=== PATIENT | female | born 1950 | race Caucasian/White ===

== ENCOUNTER 2021-05-01 09:34 | Inpatient (IN) | payer MEDICARE ==
[2021-05-01] MEDS ORDERED: KETOROLAC 15 MG/ML 1 ML VIAL IVP STA (12:11)
--- NOTE | 2021-05-01 12:14 | ED ---
Abdominal Pain HPI - General Chief Complaint: Abdominal Pain Stated Complaint: abd pain Time Seen by Provider: 05/01/21 12:01 Source: patient Mode of arrival: ambulatory Limitations: no limitations - History of Present Illness Initial Comments: This is a 71-year-old female who presents to the emergency department for 3 weeks of right lower quadrant pain. She saw her PCP 3 weeks ago and was given an antibiotic for a UTI. States that her PCP only saw trace blood in her urine. She cannot recall what the antibiotic was, but states that she took it for 7 days. The antibiotic did not offer any improvement to her symptoms. The pain radiates into her groin and right lower back. She has been unable to control the pain despite the use of Cymbalta, [place], and Mobic. Denies any nausea, vomiting, fevers, chills, dysuria, or hematuria. Denies any history of kidney stones. MD Complaint: abdominal pain, flank pain Onset/Timin -: week(s) Location: RLQ, R flank Radiation: other (right groin) Severity: severe Severity scale (1-10): 10 Quality: cramping, stabbing, sharp Consistency: constant Improves With: nothing Treatments Prior to Arrival: NSAIDs, prescription analgesics - Related Data Home Medications Medication Instructions Recorded Confirmed Cholecalciferol [Vitamin D3 (25 100 mcg PO DAILY 05/01/21 05/01/21 Mcg = 1000 Iu)] DULoxetine HCL [Cymbalta] 120 mg PO DAILY 05/01/21 05/01/21 HYDROcodone/APAP 7.5-325MG [[place] 1 tab PO QID 05/01/21 05/01/21 7.5-325] Meloxicam [Mobic] 7.5 - 15 mg PO DAILY PRN 05/01/21 05/01/21 busPIRone HCL 15 mg PO BID PRN 05/01/21 05/01/21 Allergies Allergy/AdvReac Type Severity Reaction Status Date / Time No Known Allergies Allergy Verified 05/01/21 16:13 Review of Systems ROS Statement: Those systems with pertinent positive or pertinent negative responses have been documented in the HPI. ROS Other: All systems not noted in ROS Statement are negative. Past Medical History Past Medical History: No Reported History History of Any Multi-Drug Resistant Organisms: None Reported Past Surgical History: Back Surgery, Hysterectomy, Orthopedic Surgery (right hip surgery) Past Psychological History: No Psychological Hx Reported Smoking Status: Current every day smoker Past Alcohol Use History: None Reported Past Drug Use History: None Reported General Exam Limitations: no limitations General appearance: alert, in distress Head exam: Present: atraumatic, normocephalic, normal inspection Respiratory exam: Present: normal lung sounds bilaterally. Absent: respiratory distress, wheezes, rales, rhonchi, stridor Cardiovascular Exam: Present: regular rate, normal rhythm, normal heart sounds. Absent: systolic murmur, diastolic murmur, rubs, gallop, clicks GI/Abdominal exam: Present: soft, tenderness (right lower quadrant), guarding (RLQ), normal bowel sounds. Absent: distended, organomegaly, mass, pulsatile mass Back exam: Present: other (Tenderness to palpation of L5-S1). Absent: CVA tenderness (R), CVA tenderness (L) Neurological exam: Present: alert, oriented X3, CN II-XII intact Psychiatric exam: Present: normal affect, normal mood Skin exam: Present: warm, dry, intact, normal color. Absent: rash Course Vital Signs 05/01/21 05/01/21 05/01/21 09:41 14:31 16:06 Temperature 97.3 F L Pulse Rate 101 H 78 78 Respiratory 18 18 16 Rate Blood Pressure 159/107 185/103 182/96 O2 Sat by Pulse 98 97 97 Oximetry - Reevaluation(s) Time: 13:10 (Patient alerted of CT scan results and the need for further testing. ) Time: 14:20 (Pt in a lot of pain, Toradol not helpful. Order for morphine placed.) Time: 17:07 (States that the morphine worked well but is starting to wear off. Will provide another dosage. ) Medical Decision Making - Medical Decision Making Given the persistent right lower quadrant pain with radiation into the right flank and groin, a CT scan was ordered to evaluate for possible kidney stone. CT scan revealed incidental findings of iliac and abdominal aortic aneurysms. call center receptionist vascular surgeon, Dr. Mtz was contacted per the recommendation of radiology, who requested a CTA. 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 Given the persistent pain over 3 weeks, it is possible that this is musculoskeletal pain given her history of back and hip surgery. Both surgeries took place 16-20 years ago. Given the the patient's uncontrolled pain, the decision was made to admit her after discussion with my attending Dr. Mack. Will admit her for observation due to uncontrollable pain. She will follow up with Dr. Mtz as an outpatient. - Lab Data Result diagrams: 05/01/21 12:54 05/01/21 12:54 Lab Results 05/01/21 05/01/21 05/01/21 Range/Units 12:26 12:54 12:54 WBC 10.6 (3.8-10.6) k/uL RBC 5.47 H (3.80-5.40) m/uL Hgb 15.9 (11.4-16.0) gm/dL Hct 49.6 H (34.0-46.0) % MCV 90.7 (80.0-100.0) fL MCH 29.1 (25.0-35.0) pg MCHC 32.0 (31.0-37.0) g/dL RDW 13.3 (11.5-15.5) % Plt Count 227 (150-450) k/uL MPV 8.6 Neutrophils % 63 % Lymphocytes % 25 % Monocytes % 6 % Eosinophils % 3 % Basophils % 1 % Neutrophils # 6.6 (1.3-7.7) k/uL Lymphocytes # 2.7 (1.0-4.8) k/uL Monocytes # 0.6 (0-1.0) k/uL Eosinophils # 0.3 (0-0.7) k/uL Basophils # 0.1 (0-0.2) k/uL Sodium 138 (137-145) mmol/L Potassium 4.3 (3.5-5.1) mmol/L Chloride 107 (98-107) mmol/L Carbon Dioxide 24 (22-30) mmol/L Anion Gap 7 mmol/L BUN 24 H (7-17) mg/dL Creatinine 0.62 (0.52-1.04) mg/dL Est GFR (CKD-EPI)AfAm >90 (>60 ml/min/1.73 sqM) Est GFR (CKD-EPI)NonAf >90 (>60 ml/min/1.73 sqM) Glucose 89 (74-99) mg/dL Calcium 9.9 (8.4-10.2) mg/dL Total Bilirubin 0.8 (0.2-1.3) mg/dL AST 27 (14-36) U/L ALT 15 (4-34) U/L Alkaline Phosphatase 76 (38-126) U/L Total Protein 7.5 (6.3-8.2) g/dL Albumin 4.4 (3.5-5.0) g/dL Amylase 56 (30-110) U/L Lipase 67 (23-300) U/L Urine Color Yellow Urine Appearance Clear (Clear) Urine pH 6.0 (5.0-8.0) Ur Specific [place] 1.012 (1.001-1.035) Urine Protein Negative (Negative) Urine Glucose (UA) Negative (Negative) Urine Ketones Negative (Negative) Urine Blood Negative (Negative) Urine Nitrite Negative (Negative) Urine Bilirubin Negative (Negative) Urine Urobilinogen <2.0 (<2.0) mg/dL Ur Leukocyte Esterase Trace H (Negative) Urine RBC 3 (0-5) /hpf Urine WBC 11 H (0-5) /hpf Hyaline Casts 5 H (0-2) /lpf Urine Mucus Rare H (None) /hpf - Radiology Data Radiology results: report reviewed, image reviewed Disposition Clinical Impression: Iliac artery aneurysm, right, AAA (abdominal aortic aneurysm) Disposition: ADMITTED IP TO THIS [facility] Condition: Undetermined Referrals: Carrie Blandon DO [Primary Care Provider] - 1-2 days
--- NOTE | 2021-05-01 13:00 | CT ---
EXAMINATION TYPE: CT abdomen pelvis wo con DATE OF EXAM: 05/01/2021 COMPARISON: None available HISTORY: 71-year-old female, right-sided abdominal pain for [address] DLP: 318.3 mGycm Automated exposure control for dose reduction was used. TECHNIQUE: Helical acquisition of images was performed from the lung bases through the pelvis. No or al or IV contrast administration FINDINGS: Scattered bilateral tiny nonobstructing renal calculi measuring up to 3 mm in the left mid renal pole . Obstructing stone measuring 3 mm seen in the pelvic portion of the left ureter, causing moderate le ft-sided hydroureter and hydronephrosis, without significant perirenal or periureteric fat stranding, suggestive of a chronic obstructing stone. No right-sided hydroureter or hydronephrosis. No definite renal lesion by this nonenhanced CT scan. Extensive arterial atherosclerotic calcifications and atheromatous plaques. Infrarenal abdominal aort ic aneurysm measuring up to 4.7 cm. There is also a large aneurysm involving the bifurcation of the r ight common iliac artery extending into the right internal iliac artery measuring up to 4.2 cm. Ectat ic common iliac arteries measuring up to 2 cm on the right side and 1.5 cm and the left side. No definite hepatic focal lesion by this nonenhanced CT scan. No radiodense gallbladder calculi. Unre markable unenhanced CT appearance of the spleen, pancreas and adrenals. The urinary bladder is almost complete collapsed. Previous hysterectomy. No gross adnexal mass. Unremarkable nondistended stomach, duodenum and small bowel. Scattered uncomplicated diverticulosis. Moderate to marked fecal loading of the colon. No suspicious lymphadenopathy or sizable ascites. Old healed fractures of the left superior and left inferior pubic rami. Unremarkable lung bases. L4-5 disc prosthesis with previous left L4 and L5 transpedicular fixa tion. No aggressive bone lesion. IMPRESSION: 3 mm obstructing stone within the pelvic portion of the left ureter causing moderate left-sided hydro ureter and hydronephrosis, likely chronic as described above, please correlate clinically and with ur inalysis results. Further renal scintigraphy can be considered if clinically acquired. Bilateral nonobstructing renal calculi. No right-sided hydroureter or hydronephrosis. Abdominal aortic and right common iliac aneurysms as described above, for vascular surgery consultati on. Other incidental findings as described above. Findings were discussed with the referring PA immediately after the CT scan was performed.
[2021-05-01 13:10] LABS: Appearance,Urine Clear (Clear); Bilirubin,Urine Negative (Negative); Blood,Urine Negative (Negative); Color,Urine Yellow; Glucose,Urine (UA) Negative (Negative); Hyaline Casts,Urine 5 /lpf (0-2); Ketones,Urine Negative (Negative); Leukocyte Esterase,Urine Trace (Negative); Mucus,Urine Rare /hpf; Nitrite,Urine Negative (Negative); Protein,Urine Negative (Negative); RBC,Urine 3 /hpf (0-5); Specific Gravity,Urine 1.012 (1.001-1.035); Urobilinogen,Urine <2.0 mg/dL (<2.0); WBC,Urine 11 /hpf (0-5)
[2021-05-01 13:28] LABS: Basophils # (A) 0.1 k/uL (0-0.2); Basophils % (A) 1 %; Eosinophils # (A) 0.3 k/uL (0-0.7); Eosinophils % (A) 3 %; HCT 49.6 % (34.0-46.0); HGB 15.9 gm/dL (11.4-16.0); Lymphocytes # (A) 2.7 k/uL (1.0-4.8); Lymphocytes % (A) 25 %; MCH 29.1 pg (25.0-35.0); MCV 90.7 fL (80.0-100.0); Mean Platelet Volume 8.6; Monocytes # (A) 0.6 k/uL (0-1.0); Monocytes % (A) 6 %; Neutrophils # (A) 6.6 k/uL (1.3-7.7); Neutrophils % (A) 63 %; Platelet Count 227 k/uL (150-450); RBC 5.47 m/uL (3.80-5.40); RDW 13.3 % (11.5-15.5); WBC 10.6 k/uL (3.8-10.6)
[2021-05-01 13:39] LABS: ALT 15 U/L (4-34); AST 27 U/L (14-36); African American GFR (CKD) >90 (>60 ml/min/1.73 sqM); Albumin 4.4 g/dL (3.5-5.0); Alkaline Phosphatase 76 U/L (38-126); Amylase 56 U/L (30-110); Anion Gap 7 mmol/L; Blood Urea Nitrogen 24 mg/dL (7-17); Calcium 9.9 mg/dL (8.4-10.2); Carbon Dioxide 24 mmol/L (22-30); Chloride 107 mmol/L (98-107); Glucose 89 mg/dL (74-99); Lipase 67 U/L (23-300); Non-African American GFR(CKD) >90 (>60 ml/min/1.73 sqM); Sodium 138 mmol/L (137-145); Total Bilirubin 0.8 mg/dL (0.2-1.3); Total Protein 7.5 g/dL (6.3-8.2)
[2021-05-01 13:59] LABS: Potassium 4.3 mmol/L (3.5-5.1)
[2021-05-01] MEDS ORDERED: MORPHINE SULFATE 2 MG/ML SYRINGE IM STA (14:07)
[2021-05-01] MEDS ORDERED: MORPHINE SULFATE 2 MG/ML SYRINGE IVP STA ×2 (14:30→17:05)
--- NOTE | 2021-05-01 16:04 | CT ---
EXAMINATION TYPE: CT angio thor/abd pel aorta DATE OF EXAM: 05/01/2021 INDICATION: Abdominal pain and aortic aneurysm. CT DLP: 869.5 mGy.cm Automated Exposure Control for Dose Reduction was Utilized. TECHNIQUE AND CONTRAST: Multiplanar CTA of the thoracic and abdominal aorta with IV Contrast, patient injected with 100ml mL of Isovue 370. 3-D and MIP reconstructed images were performed and reviewed. COMPARISON: Nonenhanced CT scan performed earlier same day. FINDINGS: Extensive atherosclerotic calcifications and plaques are seen involving the thoracic and abdominal ao rta with multiple variable sized calcified and noncalcified atheromatous plaques, some of them are ul cerating and mainly seen along the descending thoracic aorta and upper abdominal aorta. The ascending aorta measures up to 3.9 cm. Tortuous abdominal aorta with diffusely increased diameter and evident abdominal aortic aneurysm bobby uring up to 4.6 cm. The aneurysm extends for about 7.4 cm. The patent lumen within the maximum diamet er of the aneurysm measures 3.2 x 2.7 cm. No evidence of thoracic or abdominal aortic dissection. No uriel extension of the aneurysm into the common iliac arteries. No periaortic hematoma or collection with no evidence of contrast extravasation however there is hyperdense atheromatous plaque surroundin g the patent lumen of the abdominal aortic aneurysm which may suggest intramural hematoma. Dense calcification at the origins of the left common carotid and left subclavian arteries yet patent distally. Reduced caliber and atherosclerotic celiac trunk yet patent distally. Patent well-opacifie d superior mesenteric artery. The inferior mesenteric artery is opacified down to the pelvis. Patent renal arteries. Reduced enhancement of the right common iliac artery demonstrating ectasia and measur ing 18 mm. Ectatic left common iliac artery measuring up 17 mm. Large aneurysm is seen at the bifurcation of the right common iliac artery measuring 3.7 x 4 x 4.6 cm without significant enhancement, likely represe nting a thrombosed aneurysm. There is no significant enhancement of the right internal and right exte rnal iliac arteries with extensive calcifications. Patent atherosclerotic left external and left inte rnal iliac arteries. Mild centrilobular emphysematous changes are seen in the upper lung lobes. Grossly unremarkable remai nder of the lungs. Patent central airways. No pleural or pericardial effusion. Cardiomegaly, please c orrelate with echocardiographic results. No pathologically enlarged lymph nodes in the chest. No definite hepatic focal lesion seen by this CT angiographic study. Left-sided hydroureter and hydro nephrosis secondary to a 3 mm obstructing stone at the pelvic portion of the left ureter, described i n the previous CT report. Tiny bilateral obstructing renal calculi. Unremarkable CT appearance of the gallbladder, spleen, pancreas and adrenals. Unremarkable urinary bladder. Previous hysterectomy. No gross adnexal mass. No suspicious abdominal or pelvic lymphadenopathy. No sizable ascites. No aggress janay bone lesion. IMPRESSION: Extensive atherosclerotic changes of the thoracic and abdominal aorta with multiple atheromatous plaq ues and atheromatous ulcers as described above. No definite aortic dissection. Large abdominal aortic aneurysm with suspected intramural hematoma as described above. No periaortic hematoma or collection with no extravasation of injected IV contrast. Reduced enhancement of the right common iliac artery with large aneurysm at its bifurcation, likely t hrombosed due to the lack of enhancement. No significant enhancement of the right external and right internal iliac arteries. Other multiple incidental findings as described above. Recommend vascular ellis rgery consultation.
[2021-05-01] MEDS ORDERED: MORPHINE SULFATE 2 MG/ML SYRINGE IVP ONE (17:04)
[2021-05-01] MEDS ORDERED: ONDANSETRON 4 MG/2 ML VIAL IVP PRN (17:36)
[2021-05-01] MEDS ORDERED: NALOXONE 0.4 MG/ML 1 ML VIAL IV PRN (17:36)
[2021-05-01] MEDS ORDERED: hydrALAZINE HCL 20 MG/ML 1 ML VIAL IVP STA (17:53)
[2021-05-01] MEDS: HYDROmorphone 0.5 MG/0.5 ML SYRINGE IVP PRN (22:57)
[2021-05-02] MEDS: HYDROmorphone 0.5 MG/0.5 ML SYRINGE IVP PRN ×4 (03:15→14:31)
[2021-05-02] MEDS: NICOTINE 21MG/24HR PATCH TRANSDERM SCH (09:01)
[2021-05-02] MEDS: DULoxetine HCL 60 MG CAPSULE.DR PO SCH (09:06)
[2021-05-02] MEDS: CHOLECALCIFEROL 25 MCG (1000 IU) TABLET PO SCH (09:06)
[2021-05-02] MEDS: HYDROcodone/APAP 7.5-325MG 1 EACH TAB PO SCH ×3 (09:07→19:44)
[2021-05-02] MEDS: HYDROmorphone 1 MG/ML 1 ML SYRINGE IVP PRN (19:44)
[2021-05-03] MEDS: HYDROcodone/APAP 7.5-325MG 1 EACH TAB PO SCH ×5 (03:02→21:40)
[2021-05-03] MEDS: HYDROmorphone 1 MG/ML 1 ML SYRINGE IVP PRN ×5 (04:17→19:27)
[2021-05-03 06:44] LABS: African American GFR (CKD) 77 (>60 ml/min/1.73 sqM); Anion Gap 2 mmol/L; Blood Urea Nitrogen 42 mg/dL (7-17); Calcium 9.4 mg/dL (8.4-10.2); Carbon Dioxide 31 mmol/L (22-30); Chloride 106 mmol/L (98-107); Glucose 99 mg/dL (74-99); Non-African American GFR(CKD) 67 (>60 ml/min/1.73 sqM); Potassium 4.4 mmol/L (3.5-5.1); Sodium 139 mmol/L (137-145)
[2021-05-03] MEDS: CHOLECALCIFEROL 25 MCG (1000 IU) TABLET PO SCH (08:30)
[2021-05-03] MEDS: DULoxetine HCL 60 MG CAPSULE.DR PO SCH (08:31)
[2021-05-03] MEDS: NICOTINE 21MG/24HR PATCH TRANSDERM SCH (08:32)
--- NOTE | 2021-05-03 08:53 | P.HPIM ---
History of Present Illness H&P Date: 05/02/21 Chief Complaint: abdominal pain Patient is a 71-year-old female with a known history of back surgery and prior history of smoking and anxiety presents to ER with complaints of right lower quadrant abdominal pain. Patient states that she has been having symptoms for the past 3 weeks and was seen by her physician. Her urinalysis as an outpatient showed blood in the urine and was treated for urinary tract infection with antibiotics which she took for 7 days.. Patient did not improve symptomatically and due to worsening pain patient presents to ER. Patient states her pain is mainly in the right lower quadrant and groin region and going down to the right upper thigh region and towards the back. Denies any shortness of breath. Denies any pain in the legs with walking. No fever no chills. No cough or sputum production. Denies any dysuria or hematuria. No lightheadedness or dizziness. No prior history of abdominal surgery. CT of abdominal pelvis showed 3 mm obstructing stone within the pelvic portion of the left ureter causing moderate left-sided hydronephrosis and hydronephrosis likely chronic. Bilateral nonobstructing renal calculi. No right-sided hydroureter or hydronephrosis. Abdominal aortic and right common iliac aneurysms. Vascular surgery was consulted from the ER and CT of the thoracic aorta was done showed extensive atherosclerotic changes. Large abdominal aortic aneurysm is suspected intramural hematoma. No periaortic hematoma or collection with no extravasation of injected IV contrast. Reduced enhancement of the right common iliac artery with a large aneurysm at its bifurcation likely thrombosed and due to lack of enhancement. Laboratory showed WBC 10.6 hemoglobin 15.9 and platelets 227 BUN 24 and creatinine 0.62 Urinalysis showed trace leukoesterase clear with nitrite negative and WBC is 11. Review of Systems Constitutional: Patient denies any fever or chills . No generalized weakness or weight loss. Abdomen: Patient denied nausea vomiting and diarrhea. RLQ abdominal pain. Cardiovascular: Patient denies any chest pain or short of breath no palpitations. Respiratory: patient denied any cough or sputum production. No shortness of breath Neurologic: Patient denied any numbness or tingling headache. Musculoskeletal: Patient denies any complaints of joint swelling or deformity. Skin: Negative Psychiatric: Negative Endocrine: No heat or cold intolerance. No recent weight gain. Genitourinary: No dysuria or hematuria. All other 14 point ROS negative except the above Past Medical History Past Medical History: No Reported History History of Any Multi-Drug Resistant Organisms: None Reported Past Surgical History: Back Surgery, Hysterectomy, Orthopedic Surgery (right hip surgery) Past Psychological History: No Psychological Hx Reported Smoking Status: Current every day smoker Past Alcohol Use History: None Reported Past Drug Use History: None Reported - Past Family History Father Family Medical History: No Reported History Additional Family Medical History / Comment(s): Father was a smoker but healthy Mother Family Medical History: COPD Additional Family Medical History / Comment(s): Mother was a smoker. Medications and Allergies Home Medications Medication Instructions Recorded Confirmed Type Cholecalciferol [Vitamin D3 (25 100 mcg PO DAILY 05/01/21 05/01/21 History Mcg = 1000 Iu)] DULoxetine HCL [Cymbalta] 120 mg PO DAILY 05/01/21 05/01/21 History HYDROcodone/APAP 7.5-325MG [[place] 1 tab PO QID 05/01/21 05/01/21 History 7.5-325] Meloxicam [Mobic] 7.5 - 15 mg PO DAILY PRN 05/01/21 05/01/21 History busPIRone HCL 15 mg PO BID PRN 05/01/21 05/01/21 History Allergies Allergy/AdvReac Type Severity Reaction Status Date / Time No Known Allergies Allergy Verified 05/01/21 16:13 Physical Exam Vitals: Vital Signs Temp Pulse Resp BP Pulse Ox 05/02/21 06:40 97.8 F 80 18 126/74 95 05/02/21 05:20 77 18 137/86 92 L 05/02/21 03:10 86 18 142/101 97 05/01/21 22:30 97.6 F 64 16 177/92 95 05/01/21 18:33 76 18 150/93 05/01/21 17:54 67 18 199/106 97 05/01/21 17:24 71 16 211/106 97 05/01/21 16:06 78 16 182/96 97 05/01/21 14:31 78 18 185/103 97 Intake and Output 05/01/21 05/02/21 05/02/21 22:59 06:59 14:59 Other: # Voids 1 PHYSICAL EXAMINATION: Patient is lying in the bed comfortably, no acute distress, awake alert and oriented.. HEENT: Normocephalic. Neck is supple. Pupils reactive. Nostrils clear. Oral cavity is moist. Neck reveals no JVD, carotid bruits, or thyromegaly. CHEST EXAMINATION: Trachea is central. Symmetrical expansion. Lung love clear to auscultation and percussion. CARDIAC: Normal S1, S2 with no gallops. No murmurs ABDOMEN: Soft. Bowel sounds normal. No organomegaly. No abdominal bruits. Extremities: reveal no edema. No clubbing or cyanosis Neurologically awake, alert, oriented x3 with well-coordinated movements. No focal deficits noted Skin: No rash or skin lesions. Psychiatric: Cooperative. Nonsuicidal Musculoskeletal: No joint swelling or deformity. Normal range of motion. Results CBC & Chem 7: 05/01/21 12:54 05/03/21 05:49 Labs: Abnormal Lab Results - Last 24 Hours (Table) 05/01/21 05/01/21 05/01/21 Range/Units 12:26 12:54 12:54 RBC 5.47 H (3.80-5.40) m/uL Hct 49.6 H (34.0-46.0) % BUN 24 H (7-17) mg/dL Plasma Lactic Acid Chris (0.7-2.0) mmol/L Ur Leukocyte Esterase Trace H (Negative) Urine WBC 11 H (0-5) /hpf Hyaline Casts 5 H (0-2) /lpf Urine Mucus Rare H (None) /hpf 05/01/21 Range/Units 16:43 RBC (3.80-5.40) m/uL Hct (34.0-46.0) % BUN (7-17) mg/dL Plasma Lactic Acid Chris 0.6 L (0.7-2.0) mmol/L Ur Leukocyte Esterase (Negative) Urine WBC (0-5) /hpf Hyaline Casts (0-2) /lpf Urine Mucus (None) /hpf Microbiology - Last 24 Hours (Table) 05/01/21 12:26 Urine Culture - Preliminary Urine,Clean Catch Thrombosis Risk Factor Assmnt - DVT/VTE Prophylaxis DVT/VTE Prophylaxis: Pharmacologic Prophylaxis ordered Assessment and Plan Assessment: Right lower quadrant abdominal pain and groin pain. Large abdominal aortic aneurysm 4.6 cm and extending up to 7.4 cm with suspected intramural hematoma. Large right common iliac artery aneurysm. Left-sided obstructing 3 mm renal calculi with hydronephrosis. Elevated blood pressure on admission likely due to pain. Patient treatment with acute urinary tract infection History of back surgery Anxiety Osteoarthritis DVT prophylaxis Plan: Patient will be continued on pain management and was given Given morphine in the ER. Blood pressure is controlled now. Urinalysis negative for infection. Follow-up urine culture report. Due to large aneurysm of the right common iliac and abdominal aorta, vascular surgery will be consulted. Urology was consulted due to left ureteral stone and hydronephrosis. Continue to follow closely. Time with Patient: Greater than 30
[2021-05-03 09:39] LABS: Basophils # (A) 0.17 X 10*3/uL (0.00-0.10); Basophils % (A) 1.3 %; Eosinophils % (A) 6.2 %; HGB 13.7 g/dL (12.0-15.0); Immature Grans, Automated 0.5 %; Lymphocytes # (A) 2.89 X 10*3/uL (0.90-5.00); Lymphocytes % (A) 22.4 %; MCH 27.9 pg (27.0-32.0); MCHC 31.1 g/dL (32.0-37.0); MCV 89.6 fL (80.0-97.0); Mean Platelet Volume 11.3 fL (9.5-12.2); Monocytes # (A) 1.17 X 10*3/uL (0.20-1.00); Monocytes % (A) 9.1 %; NRBC Per 100 WBC 0 /100 WBCS (0.0-0.0); Neutrophils # (A) 7.79 X 10*3/uL (1.80-7.70); Neutrophils % (A) 60.5 %; Platelet Count 219 X 10*3/uL (140-440); RBC 4.91 X 10*6/uL (4.10-5.20); RDW 14.1 % (11.5-14.5); WBC 12.88 X 10*3/uL (4.50-10.00)
[2021-05-03] MEDS ORDERED: SENNOSIDES 8.6 MG TAB PO PRN (10:59)
[2021-05-03] MEDS: DOCUSATE 100 MG CAP PO SCH ×2 (11:44→19:27)
--- NOTE | 2021-05-03 13:55 | P.PN ---
Subjective Progress Note Date: 05/03/21 Patient seen and examined. Still has some mild abdominal discomfort otherwise feeling okay. Previous discussions with Dr. Carter earlier this week regarding findings of the abdominal and iliac artery aneurysms. Per her understanding, the plan is to workup for possible repair as an outpatient Objective - Vital Signs Vital signs: Vital Signs Temp 97.8 F 05/03/21 07:14 Pulse 80 05/03/21 10:46 Resp 16 05/03/21 10:46 BP 143/85 05/03/21 07:14 Pulse Ox 98 05/03/21 07:14 Intake & Output 05/02/21 05/03/21 05/03/21 18:59 06:59 18:59 Intake Total 480 Balance 480 Weight 49.442 kg Intake: Oral 480 Other: Voiding Method Toilet # Voids 1 2 0 - Exam Gen. is a pleasant cooperative T female in no acute distress. HEENT is normocephalic, atraumatic, extraocular motion intact. Heart appears regular at this time. Lungs are clear bilaterally. Abdomen is soft, mild lower quadrant tenderness to palpation. No obvious pulsatile masses noted. Palpable radial and femoral pulses bilaterally. Minimal mood and affect. Cranial nerves II th rough XII grossly intact - Labs CBC & Chem 7: 05/03/21 05:49 05/03/21 05:49 Labs: Abnormal Lab Results - Last 24 Hours (Table) 05/03/21 05/03/21 Range/Units 05:49 05:49 WBC 12.88 H (4.50-10.00) X 10*3/uL MCHC 31.1 L (32.0-37.0) g/dL Immature Gran # 0.06 H (0.00-0.04) X 10*3/uL Neutrophils # 7.79 H (1.80-7.70) X 10*3/uL Monocytes # 1.17 H (0.20-1.00) X 10*3/uL Eosinophils # 0.80 H (0.04-0.35) X 10*3/uL Basophils # 0.17 H (0.00-0.10) X 10*3/uL Carbon Dioxide 31 H (22-30) mmol/L BUN 42 H (7-17) mg/dL Microbiology - Last 24 Hours (Table) 05/01/21 12:26 Urine Culture - Final Urine,Clean Catch Assessment and Plan Assessment: Infrarenal abdominal aortic aneurysm, right iliac aneurysm Plan: Workup and evaluation for repair per Dr. Carter. At this time no further inpatient plans. Hopeful to have patient follow up with him in the office tomorrow 05/04/2021 upon discharge as previously planned. Patient has appointment made
--- NOTE | 2021-05-03 15:14 | P.GSCN ---
History of Present Illness Consult date: 05/01/21 Reason for Consult: abdominal aortic and iliac artery aneurysm. History of present illness: patient is a 71-year-old female who presented to the emergency room complaining of lower abdominal discomfort which had been ongoing for 3-4 week timeframe. Denied any previous similar symptoms. Her pain has plateaued over the past 2 weeks, not increasing or decreasing. There is no associated nausea nor vomiting. She is eating stooling and voiding normally. She denies chills or fevers. While in the emergency room she did undergo CT scan of her abdominal and pelvic cavities. This demonstratesa 4.6 cm infrarenal abdominal aortic aneurysm as well as a 4.6 cm right internal iliac artery aneurysm. The internal iliac artery aneurysm has very little contrast contained within. This may be due to thrombosis of the aneurysm or timing of the contrast. She denies any previous knowledge of this aneurysmal disease. Past Medical History Past Medical History: Hyperlipidemia Additional Past Medical History / Comment(s): Chronic low back pain, UTIs, pelvic fracture-healed, L kidney stone. History of Any Multi-Drug Resistant Organisms: None Reported Past Surgical History: Back Surgery, Hysterectomy, Tonsillectomy Additional Past Surgical History / Comment(s): D&Cs, L4-L5 back surgery/poonam, colonoscopies, hemorrhoidectomy Smoking Status: Current every day smoker - Past Family History Father Family Medical History: No Reported History Additional Family Medical History / Comment(s): Father was a smoker but healthy Mother Family Medical History: COPD Additional Family Medical History / Comment(s): Mother was a smoker. Medications and Allergies Home Medications Medication Instructions Recorded Confirmed Type Cholecalciferol [Vitamin D3 (25 100 mcg PO DAILY 05/01/21 05/01/21 History Mcg = 1000 Iu)] DULoxetine HCL [Cymbalta] 120 mg PO DAILY 05/01/21 05/01/21 History HYDROcodone/APAP 7.5-325MG [[place] 1 tab PO QID 05/01/21 05/01/21 History 7.5-325] Meloxicam [Mobic] 7.5 - 15 mg PO DAILY PRN 05/01/21 05/01/21 History busPIRone HCL 15 mg PO BID PRN 05/01/21 05/01/21 History Tamsulosin [Flomax] 0.4 mg PO DAILY #30 cap 05/03/21 Rx Allergies Allergy/AdvReac Type Severity Reaction Status Date / Time No Known Allergies Allergy Verified 05/01/21 16:13 Surgical - Exam Osteopathic Statement: *. No significant issues noted on an osteopathic structural exam other than those noted in the History and Physical/Consult. Vital Signs Temp Pulse Resp BP Pulse Ox 97.3 F L 101 H 18 159/107 98 05/01/21 09:41 05/01/21 09:41 05/01/21 09:41 05/01/21 09:41 05/01/21 09:41 - General well developed, well nourished, no distress - Neck no masses, no bruits, trachea midline thyroid nodule: absent, lymphadenopathy: absent, carotid bruit: absent - Abdomen Abdomen: soft, non tender (the aortic aneurysm is not under to palpation.femoral pulses are intact bilaterally. Right popliteal pulses noted. The left popliteal as well as DP and PT pulses are absent bilaterally.) nerves II through XII are grossly intact. Results - Labs 05/03/21 05:49 05/03/21 05:49 Abnormal Lab Results - Last 24 Hours (Table) 05/03/21 05/03/21 Range/Units 05:49 05:49 WBC 12.88 H (4.50-10.00) X 10*3/uL MCHC 31.1 L (32.0-37.0) g/dL Immature Gran # 0.06 H (0.00-0.04) X 10*3/uL Neutrophils # 7.79 H (1.80-7.70) X 10*3/uL Monocytes # 1.17 H (0.20-1.00) X 10*3/uL Eosinophils # 0.80 H (0.04-0.35) X 10*3/uL Basophils # 0.17 H (0.00-0.10) X 10*3/uL Carbon Dioxide 31 H (22-30) mmol/L BUN 42 H (7-17) mg/dL Microbiology - Last 24 Hours (Table) 05/01/21 12:26 Urine Culture - Final Urine,Clean Catch Diabetes panel 05/03/21 Range/Units 05:49 Sodium 139 (137-145) mmol/L Potassium 4.4 (3.5-5.1) mmol/L Chloride 106 (98-107) mmol/L Carbon Dioxide 31 H (22-30) mmol/L BUN 42 H (7-17) mg/dL Creatinine 0.88 (0.52-1.04) mg/dL Glucose 99 (74-99) mg/dL Calcium 9.4 (8.4-10.2) mg/dL Calcium panel 05/03/21 Range/Units 05:49 Calcium 9.4 (8.4-10.2) mg/dL Pituitary panel 05/03/21 Range/Units 05:49 Sodium 139 (137-145) mmol/L Potassium 4.4 (3.5-5.1) mmol/L Chloride 106 (98-107) mmol/L Carbon Dioxide 31 H (22-30) mmol/L BUN 42 H (7-17) mg/dL Creatinine 0.88 (0.52-1.04) mg/dL Glucose 99 (74-99) mg/dL Calcium 9.4 (8.4-10.2) mg/dL Adrenal panel 05/03/21 Range/Units 05:49 Sodium 139 (137-145) mmol/L Potassium 4.4 (3.5-5.1) mmol/L Chloride 106 (98-107) mmol/L Carbon Dioxide 31 H (22-30) mmol/L BUN 42 H (7-17) mg/dL Creatinine 0.88 (0.52-1.04) mg/dL Glucose 99 (74-99) mg/dL Calcium 9.4 (8.4-10.2) mg/dL - Imaging CT scan - abdomen: image reviewed CT scan - chest: image reviewed CT scan - pelvis: image reviewed Assessment and Plan Assessment: #1:4.6 cm infrarenal abdominal aortic aneurysm. #2:4.6 cm right internal iliac artery aneurysm which may be thrombosed. #3: Tobacco use (cigarettes). Plan: #1: In reference to the internal iliac artery aneurysm is may require coiling versus stent grafting. I will review the films with appropriate company representatives to see if the patient is a candidate for an iliac branched device.this should take care of the internal iliac as well as abdominal aortic original disease simultaneously. If iliac branched device is not appropriate p atient will require coiling if the aneurysm is yet patent. #2: I strongly encouraged the patient to avoid any and all tobacco products. Time with Patient: Greater than 30
--- NOTE | 2021-05-03 16:21 | P.GSCN ---
History of Present Illness Consult date: 05/03/21 History of present illness: CHIEF COMPLAINT: Abdominal pain HISTORY OF PRESENT ILLNESS: This is a 71-year-old female who presented to the hospital with abdominal pain. Patient complaining of constipation. She reports that she has been taking pain medication at home that contributes to her constipation. She denies any nausea or vomiting. Her pain is currently cont rolled. Past surgical history includes a hysterectomy. She does have an abdominal aortic aneurysm and has been seen by vascular surgery. There is also noted on CAT scan a 3 mm obstructing stone in the left ureter with moderate hydronephrosis. Patient being evaluated by urology. Patient seen and examined with Dr. harkins PAST MEDICAL HISTORY: See list. PAST SURGICAL HISTORY: See list. MEDICATIONS: See list. ALLERGIES: See list. SOCIAL HISTORY: No illicit drug use. REVIEW OF SYSTEMS: CONSTITUTIONAL: Denies fever or chills. HEENT: Denies blurred vision, vision changes, or eye pain. Denies hemoptysis CARDIOVASCULAR: Denies chest pain or pressure. RESPIRATORY: No shortness of breath. GASTROINTESTINAL: See HPI for pertinent findings HEMATOLOGIC: Denies bleeding disorders. GENITOURINARY: Denies any blood in urine or increased urinary frequency. SKIN: Denies pruitis. Denies rash. PHYSICAL EXAM: VITAL SIGNS: Reviewed GENERAL: Well-developed in no acute distress. HEENT: No sclera icterus. Extraocular movements grossly intact. Moist buccal mucosa. Head is atraumatic, normocephalic. No nasal drainage. ABDOMEN: Soft. Nondistended. NEUROLOGIC: Alert and oriented. Cranial nerves II through XII grossly intact. LABORATORY DATA: WBC 12.88 hemoglobin 13.7 platelets 219 Sodium 134 potassium 4.4 creatinine 0.88 0.6 LFTs and lipase normal IMAGING: computed tomography scan abdomen and pelvis 3 mm obstructing stone within pelvis portion of the left ureter causing moderate left-sided hydroureter and hydronephrosis. Bilateral nonobstructing renal calculi. Abdominal aortic and right common iliac aneurysms ASSESSMENT: 1. Abdominal pain 2. Constipation 3. Abdominal aortic aneurysm being evaluated by basilar surgery 4. 3 mm obstructing stone in the left ureter with hydronephrosis. Being evaluated by urology PLAN: -We'll give lactulose 30 mL one every hour 4 doses to help with constipation -Continue supportive care -No surgical intervention planned Thank you for this consultation Physician Sql Database Programmer note has been reviewed by physician. Signing provider agrees with the documented findings, assessment, and plan of care. Past Medical History Past Medical History: Hyperlipidemia Additional Past Medical History / Comment(s): Chronic low back pain, UTIs, pelvic fracture-healed, L kidney stone. History of Any Multi-Drug Resistant Organisms: None Reported Past Surgical History: Back Surgery, Hysterectomy, Tonsillectomy Additional Past Surgical History / Comment(s): D&Cs, L4-L5 back surgery/poonam, colonoscopies, hemorrhoidectomy Smoking Status: Current every day smoker - Past Family History Father Family Medical History: No Reported History Additional Family Medical History / Comment(s): Father was a smoker but healthy Mother Family Medical History: COPD Additional Family Medical History / Comment(s): Mother was a smoker. Medications and Allergies Home Medications Medication Instructions Recorded Confirmed Type Cholecalciferol [Vitamin D3 (25 100 mcg PO DAILY 05/01/21 05/01/21 History Mcg = 1000 Iu)] DULoxetine HCL [Cymbalta] 120 mg PO DAILY 05/01/21 05/01/21 History HYDROcodone/APAP 7.5-325MG [[place] 1 tab PO QID 05/01/21 05/01/21 History 7.5-325] Meloxicam [Mobic] 7.5 - 15 mg PO DAILY PRN 05/01/21 05/01/21 History busPIRone HCL 15 mg PO BID PRN 05/01/21 05/01/21 History Tamsulosin [Flomax] 0.4 mg PO DAILY #30 cap 05/03/21 Rx Allergies Allergy/AdvReac Type Severity Reaction Status Date / Time No Known Allergies Allergy Verified 05/01/21 16:13 Surgical - Exam Vital Signs Temp Pulse Resp BP Pulse Ox 97.3 F L 101 H 18 159/107 98 05/01/21 09:41 05/01/21 09:41 05/01/21 09:41 05/01/21 09:41 05/01/21 09:41 Results - Labs 05/03/21 05:49 05/03/21 05:49 Abnormal Lab Results - Last 24 Hours (Table) 05/03/21 05/03/21 Range/Units 05:49 05:49 WBC 12.88 H (4.50-10.00) X 10*3/uL MCHC 31.1 L (32.0-37.0) g/dL Immature Gran # 0.06 H (0.00-0.04) X 10*3/uL Neutrophils # 7.79 H (1.80-7.70) X 10*3/uL Monocytes # 1.17 H (0.20-1.00) X 10*3/uL Eosinophils # 0.80 H (0.04-0.35) X 10*3/uL Basophils # 0.17 H (0.00-0.10) X 10*3/uL Carbon Dioxide 31 H (22-30) mmol/L BUN 42 H (7-17) mg/dL Microbiology - Last 24 Hours (Table) 05/01/21 12:26 Urine Culture - Final Urine,Clean Catch Diabetes panel 05/03/21 Range/Units 05:49 Sodium 139 (137-145) mmol/L Potassium 4.4 (3.5-5.1) mmol/L Chloride 106 (98-107) mmol/L Carbon Dioxide 31 H (22-30) mmol/L BUN 42 H (7-17) mg/dL Creatinine 0.88 (0.52-1.04) mg/dL Glucose 99 (74-99) mg/dL Calcium 9.4 (8.4-10.2) mg/dL Calcium panel 05/03/21 Range/Units 05:49 Calcium 9.4 (8.4-10.2) mg/dL Pituitary panel 05/03/21 Range/Units 05:49 Sodium 139 (137-145) mmol/L Potassium 4.4 (3.5-5.1) mmol/L Chloride 106 (98-107) mmol/L Carbon Dioxide 31 H (22-30) mmol/L BUN 42 H (7-17) mg/dL Creatinine 0.88 (0.52-1.04) mg/dL Glucose 99 (74-99) mg/dL Calcium 9.4 (8.4-10.2) mg/dL Adrenal panel 05/03/21 Range/Units 05:49 Sodium 139 (137-145) mmol/L Potassium 4.4 (3.5-5.1) mmol/L Chloride 106 (98-107) mmol/L Carbon Dioxide 31 H (22-30) mmol/L BUN 42 H (7-17) mg/dL Creatinine 0.88 (0.52-1.04) mg/dL Glucose 99 (74-99) mg/dL Calcium 9.4 (8.4-10.2) mg/dL
[2021-05-03] MEDS: LACTULOSE 20 GM/30 ML CUP PO SCH ×4 (16:43→19:50)
--- NOTE | 2021-05-03 21:38 | P.PN ---
Subjective Patient is a 71-year-old female with a known history of back surgery and prior history of smoking and anxiety presents to ER with complaints of right lower quadrant abdominal pain. Patient states that she has been having symptoms for the past 3 weeks and was seen by her physician. Her urinalysis as an outpatient showed blood in the urine and was treated for urinary tract infection with antibiotics which she took for 7 days.. Patient did not improve symptomatically and due to worsening pain patient presents to ER. Patient states her pain is mainly in the right lower quadrant and groin region and going down to the right upper thigh region and towards the back. Denies any shortness of breath. Denies any pain in the legs with walking. No fever no chills. No cough or sputum production. Denies any dysuria or hematuria. No lightheadedness or dizziness. No prior history of abdominal surgery. CT of abdominal pelvis showed 3 mm obstructing stone within the pelvic portion of the left ureter causing moderate left-sided hydronephrosis and hydronephrosis likely chronic. Bilateral nonobstructing renal calculi. No right-sided hydroureter or hydro nephrosis. Abdominal aortic and right common iliac aneurysms. Vascular surgery was consulted from the ER and CT of the thoracic aorta was done showed extensive atherosclerotic changes. Large abdominal aortic aneurysm is suspected intramural hematoma. No periaortic hematoma or collection with no extr avasation of injected IV contrast. Reduced enhancement of the right common iliac artery with a large aneurysm at its bifurcation likely thrombosed and due to lack of enhancement. Laboratory showed WBC 10.6 hemoglobin 15.9 and platelets 227 BUN 24 and creatinine 0.62 Urinalysis showed trace leukoesterase clear with nitrite negative and WBC is 11. Subjective: I am resume the care of the patient on 05/03/2021 This is a pleasant 71 years old female who presents with right lower quadrant abdominal pain and tenderness and sometimes even into the right groin, with no history of fall or trauma, and while she was also using [place] for her back pain. She denies nausea vomiting or diarrhea. No dysuria or urgency, no vaginal discharge or bleeding. She is alert awake and oriented 3 and her gait is normal. 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 Vascular surgery they recommended outpatient follow-up with their office tomorrow as she has already an appointment however not sure if patient will be cleared for discharge prior to that. Gen. surgery consulted looks like patient has abdominal pain and her colon is filled with stool indicating constipation, patient was started on Colace and senna. Urologist also consulted for her kidney stones and hydroureter/hydronephrosis of the left side however she does not complain of from left side abdominal pain or flank pain. Objective - Vital Signs Vital signs: Vital Signs Temp 97.8 F 05/03/21 07:14 Pulse 80 05/03/21 10:46 Resp 16 05/03/21 10:46 BP 143/85 05/03/21 07:14 Pulse Ox 98 05/03/21 07:14 Intake & Output 05/02/21 05/03/21 05/03/21 18:59 06:59 18:59 Intake Total 480 Balance 480 Weight 49.442 kg Intake: Oral 480 Other: Voiding Method Toilet # Voids 1 2 0 - Exam GENERAL: The patient is alert and oriented x3, not in any acute distress. Well developed, well nourished. HEENT: Pupils are round and equally reacting to light. EOMI. No scleral icterus. No conjunctival pallor. Normocephalic, atraumatic. No pharyngeal erythema. No thyromegaly. CARDIOVASCULAR: S1 and S2 present. No murmurs, rubs, or gallops. PULMONARY: Chest is clear to auscultation, no wheezing or crackles. -ABDOMEN: Soft, RLQ tenderness with no rebound tenderness or guarding, nondistended, normoactive bowel sounds. No palpable organomegaly. MUSCULOSKELETAL: No joint swelling or deformity. EXTREMITIES: No cyanosis, clubbing, or pedal edema. NEUROLOGICAL: Gross neurological examination did not reveal any focal deficits. SKIN: No rashes. no petechiae. - Labs CBC & Chem 7: 05/03/21 05:49 05/03/21 05:49 Labs: Abnormal Lab Results - Last 24 Hours (Table) 05/03/21 05/03/21 Range/Units 05:49 05:49 WBC 12.88 H (4.50-10.00) X 10*3/uL MCHC 31.1 L (32.0-37.0) g/dL Immature Gran # 0.06 H (0.00-0.04) X 10*3/uL Neutrophils # 7.79 H (1.80-7.70) X 10*3/uL Monocytes # 1.17 H (0.20-1.00) X 10*3/uL Eosinophils # 0.80 H (0.04-0.35) X 10*3/uL Basophils # 0.17 H (0.00-0.10) X 10*3/uL Carbon Dioxide 31 H (22-30) mmol/L BUN 42 H (7-17) mg/dL Microbiology - Last 24 Hours (Table) 05/01/21 12:26 Urine Culture - Final Urine,Clean Catch Assessment and Plan Assessment: Right lower quadrant abdominal pain and groin pain. Mostly related to constipation. Also could be related to nonobstructing renal calculi and possible arterial aneurysm as below Constipation Large abdominal aortic aneurysm 4.6 cm and extending up to 7.4 cm with suspected intramural hematoma. Large right common iliac artery aneurysm. Left-sided obstructing 3 mm renal calculi with hydronephrosis . Elevated blood pressure on admission likely due to pain. Patient treatment with acute urinary tract infection History of back surgery Anxiety Osteoarthritis DVT prophylaxis \ Plan: This is a pleasant 71 years old female who presents with abdominal pain in the right lower quadrant area Continue with Colace and senna, and lactulose when necessary per surgery team recommendation follow her closely. Vascular surgery for her aortic and right internal iliac artery aneurysms, they recommended coiling versus iliac branch device. Urologist team were consulted Pain management Labs and medication were reviewed.. Continue same treatment. Continue with symptomatic treatment. Resume home medication. Monitor lytes and vitals. DVT and GI prophylaxis. Further recommendations as per clinical course of the patient DVT prophylaxis: Subcutaneous heparin GI Prophylaxis: Pepcid
[2021-05-03] MEDS ORDERED: LACTULOSE 20 GM/30 ML CUP PO PRN (21:39)
[2021-05-03] MEDS: FAMOTIDINE 20 MG/2 ML VIAL IV SCH (22:02)
[2021-05-04] MEDS: HYDROmorphone 1 MG/ML 1 ML SYRINGE IVP PRN ×2 (07:31→11:08)
[2021-05-04] MEDS: DULoxetine HCL 60 MG CAPSULE.DR PO SCH (08:41)
[2021-05-04] MEDS: HEPARIN SODIUM,PORCINE/PF 5,000 UNIT/0.5 ML SYRINGE SQ SCH ×2 (08:41→20:58)
[2021-05-04] MEDS: CHOLECALCIFEROL 25 MCG (1000 IU) TABLET PO SCH (08:41)
[2021-05-04] MEDS: FAMOTIDINE 20 MG/2 ML VIAL IV SCH (08:42)
[2021-05-04] MEDS: HYDROcodone/APAP 7.5-325MG 1 EACH TAB PO SCH ×4 (08:42→20:56)
[2021-05-04] MEDS: DOCUSATE 100 MG CAP PO SCH ×2 (08:42→20:56)
[2021-05-04] MEDS: NICOTINE 21MG/24HR PATCH TRANSDERM SCH (08:42)
[2021-05-04] MEDS ORDERED: METOPROLOL TARTRATE 25 MG TAB PO SCH (09:00)
[2021-05-04 09:38] LABS: Basophils # (A) 0.15 X 10*3/uL (0.00-0.10); Basophils % (A) 1.3 %; Eosinophils # (A) 0.46 X 10*3/uL (0.04-0.35); Immature Grans, Automated 0.3 %; Lymphocytes # (A) 2.81 X 10*3/uL (0.90-5.00); Lymphocytes % (A) 24.5 %; MCH 28.2 pg (27.0-32.0); MCHC 31.1 g/dL (32.0-37.0); MCV 90.7 fL (80.0-97.0); Mean Platelet Volume 11.6 fL (9.5-12.2); Monocytes # (A) 0.91 X 10*3/uL (0.20-1.00); Monocytes % (A) 7.9 %; NRBC Per 100 WBC 0 /100 WBCS (0.0-0.0); Platelet Count 220 X 10*3/uL (140-440); RBC 4.96 X 10*6/uL (4.10-5.20); WBC 11.46 X 10*3/uL (4.50-10.00)
--- NOTE | 2021-05-04 10:38 | P.GSCN ---
History of Present Illness Consult date: 05/03/21 Reason for Consult: Left ureteral calculus Requesting physician: Jazmine Arenas History of present illness: The patient is a 71-year-old white female with no prior history of urolithiasis. She now presents with a three-week history of right lower quadrant abdominal pain. She was seen by her PCP, who performed urinalysis showing trace blood. Antibiotics were prescribed, without relief. Upon presentation to the ER, she underwent CT scan imaging which revealed aneurysms of the abdominal aorta and right common iliac and right internal iliac arteries. Also noted was evidence of mild left hydroureteronephrosis, likely due to a 3 mm left distal ureteral calculus. Small bilateral renal calculi were also seen, though some of these renal calcifications may be vascular in nature. She has not experienced left-s ided pain until this morning, and states that it is very mild in severity. Review of Systems - Constitutional Denies chills, Denies fever - Gastrointestinal Denies nausea, Denies vomiting - Genitourinary Genitourinary: Denies dysuria, Denies hematuria Past Medical History Past Medical History: Hyperlipidemia Additional Past Medical History / Comment(s): Chronic low back pain, UTIs, pelvic fracture-healed, L kidney stone. History of Any Multi-Drug Resistant Organisms: None Reported Past Surgical History: Back Surgery, Hysterectomy, Tonsillectomy Additional Past Surgical History / Comment(s): D&Cs, L4-L5 back surgery/poonam, colonoscopies, hemorrhoidectomy Smoking Status: Current every day smoker - Past Family History Father Family Medical History: No Reported History Additional Family Medical History / Comment(s): Father was a smoker but healthy Mother Family Medical History: COPD Additional Family Medical History / Comment(s): Mother was a smoker. Medications and Allergies Home Medications Medication Instructions Recorded Confirmed Type Cholecalciferol [Vitamin D3 (25 100 mcg PO DAILY 05/01/21 05/01/21 History Mcg = 1000 Iu)] DULoxetine HCL [Cymbalta] 120 mg PO DAILY 05/01/21 05/01/21 History HYDROcodone/APAP 7.5-325MG [[place] 1 tab PO QID 05/01/21 05/01/21 History 7.5-325] Meloxicam [Mobic] 7.5 - 15 mg PO DAILY PRN 05/01/21 05/01/21 History busPIRone HCL 15 mg PO BID PRN 05/01/21 05/01/21 History Allergies Allergy/AdvReac Type Severity Reaction Status Date / Time No Known Allergies Allergy Verified 05/01/21 16:13 Surgical - Exam Vital Signs Temp Pulse Resp BP Pulse Ox 97.3 F L 101 H 18 159/107 98 05/01/21 09:41 05/01/21 09:41 05/01/21 09:41 05/01/21 09:41 05/01/21 09:41 - General well developed, well nourished, no distress - Respiratory normal respiratory effort - Abdomen Abdomen: soft, tender (Mild right-sided tenderness), no guarding, no rigid, no rebound, no distended - Psychiatric oriented to time, oriented to person, oriented to place, speech is normal, memory intact Results - Labs 05/03/21 05:49 05/03/21 05:49 Abnormal Lab Results - Last 24 Hours (Table) 05/03/21 Range/Units 05:49 Carbon Dioxide 31 H (22-30) mmol/L BUN 42 H (7-17) mg/dL Microbiology - Last 24 Hours (Table) 05/01/21 12:26 Urine Culture - Final Urine,Clean Catch Diabetes panel 05/03/21 Range/Units 05:49 Sodium 139 (137-145) mmol/L Potassium 4.4 (3.5-5.1) mmol/L Chloride 106 (98-107) mmol/L Carbon Dioxide 31 H (22-30) mmol/L BUN 42 H (7-17) mg/dL Creatinine 0.88 (0.52-1.04) mg/dL Glucose 99 (74-99) mg/dL Calcium 9.4 (8.4-10.2) mg/dL Calcium panel 05/03/21 Range/Units 05:49 Calcium 9.4 (8.4-10.2) mg/dL Pituitary panel 05/03/21 Range/Units 05:49 Sodium 139 (137-145) mmol/L Potassium 4.4 (3.5-5.1) mmol/L Chloride 106 (98-107) mmol/L Carbon Dioxide 31 H (22-30) mmol/L BUN 42 H (7-17) mg/dL Creatinine 0.88 (0.52-1.04) mg/dL Glucose 99 (74-99) mg/dL Calcium 9.4 (8.4-10.2) mg/dL Adrenal panel 05/03/21 Range/Units 05:49 Sodium 139 (137-145) mmol/L Potassium 4.4 (3.5-5.1) mmol/L Chloride 106 (98-107) mmol/L Carbon Dioxide 31 H (22-30) mmol/L BUN 42 H (7-17) mg/dL Creatinine 0.88 (0.52-1.04) mg/dL Glucose 99 (74-99) mg/dL Calcium 9.4 (8.4-10.2) mg/dL - Imaging CT scan - abdomen: report reviewed, image reviewed Assessment and Plan (1) Hydronephrosis with renal and ureteral calculous obstruction Current Visit: Yes Status: Acute Code(s): N13.2 - HYDRONEPHROSIS WITH RENAL AND URETERAL CALCULOUS OBSTRUCTION SNOMED Code(s): 852550652 (2) Calculus of ureter Current Visit: Yes Status: Acute Code(s): N20.1 - CALCULUS OF URETER SNOMED Code(s): 06417142 Plan: The patient's primary symptomatology consists of right lower quadrant discomfor t, perhaps due to the right iliac artery aneurysm. A left distal ureteral calculus would not be expected to cause right-sided pain, and this is likely an incidental finding. I explained to her that a 3 mm distal ureteral calculus has a high likelihood of spontaneous passage. In view of this, she prefers conservative management over ureteroscopic removal of the calculus. She has been advised to take tamsulosin, and a strain her urine. She will follow up with me as an outpatient in 2 weeks. Surgery will be considered if she develops intractable symptoms. Time with Patient: Greater than 30
--- NOTE | 2021-05-04 11:46 | P.PN ---
Progress Note - Text Progress Note Date: 05/04/21 Mrs. Moss continues to report right lower quadrant abdominal pain. She denies gross hematuria and left-sided pain. I had a lengthy discussion with her and her daughter regarding her left distal ureteral calculus. This could be removed ureteroscopically, but I do not feel this is warranted as the calculus has a high likelihood of spontaneous passage and is not causing symptoms. I have prescribed tamsulosin and advised her to strain her urine. She will follow up with me as an outpatient in 2 weeks, sooner if needed. Surgery will be recommended if she develops intractable left-sided pain.
[2021-05-04 12:09] VITALS: BMI 18.7
--- NOTE | 2021-05-04 14:43 | P.PN ---
Subjective Progress Note Date: 05/04/21 CHIEF COMPLAINT: Abdominal pain HISTORY OF PRESENT ILLNESS: Patient reports decrease in her abdominal pain. She is having multiple bowel movements after the lactulose. She is tolerating diet. Patient seen by urology regarding her left distal ureteral calculus. Afebrile. WBC is down from 12.88-11.46 PHYSICAL EXAM: VITAL SIGNS: Reviewed. GENERAL: Well-developed in no acute distress. HEENT: No sclera icterus. Extraocular movements grossly intact. Moist buccal mucosa. Head is atraumatic, normocephalic. ABDOMEN: Soft. Nondistended. NEUROLOGIC: Alert and oriented. Cranial nerves II through XII grossly intact. ASSESSMENT: 1. Abdominal pain 2. Constipation 3. Abdominal aortic aneurysm being evaluated by basilar surgery 4. 3 mm obstructing stone in the left ureter with hydronephrosis. Being evaluated by urology PLAN: -Continue stool softeners and lactulose -Continue supportive care -No surgical intervention planned Physician [place] note has been reviewed by physician. Signing provider agrees with the documented findings, assessment, and plan of care. Objective - Vital Signs Vital signs: Vital Signs Temp 97.8 F 05/04/21 14:30 Pulse 70 05/04/21 14:30 Resp 18 05/04/21 14:30 BP 161/95 05/04/21 14:30 Pulse Ox 98 05/04/21 14:30 Intake & Output 05/03/21 05/04/21 05/04/21 18:59 06:59 18:59 Intake Total 600 Balance 600 Weight 49.442 kg Intake: Oral 600 Other: Voiding Method Toilet Toilet # Voids 1 1 1 # Bowel Movements 5 - Labs CBC & Chem 7: 05/04/21 06:02 05/03/21 05:49 Labs: Abnormal Lab Results - Last 24 Hours (Table) 05/04/21 Range/Units 06:02 WBC 11.46 H (4.50-10.00) X 10*3/uL MCHC 31.1 L (32.0-37.0) g/dL Eosinophils # 0.46 H (0.04-0.35) X 10*3/uL Basophils # 0.15 H (0.00-0.10) X 10*3/uL
--- NOTE | 2021-05-04 15:30 | P.PN ---
Subjective Patient is a 71-year-old female with a known history of back surgery and prior history of smoking and anxiety presents to ER with complaints of right lower quadrant abdominal pain. Patient states that she has been having symptoms for the past 3 weeks and was seen by her physician. Her urinalysis as an outpatient showed blood in the urine and was treated for urinary tract infection with antibiotics which she took for 7 days.. Patient did not improve symptomatically and due to worsening pain patient presents to ER. Patient states her pain is mainly in the right lower quadrant and groin region and going down to the right upper thigh region and towards the back. Denies any shortness of breath. Denies any pain in the legs with walking. No fever no chills. No cough or sputum production. Denies any dysuria or hematuria. No lightheadedness or dizziness. No prior history of abdominal surgery. CT of abdominal pelvis showed 3 mm obstructing stone within the pelvic portion of the left ureter causing moderate left-sided hydronephrosis and hydronephrosis likely chronic. Bilateral nonobstructing renal calculi. No right-sided hydroureter or hydro nephrosis. Abdominal aortic and right common iliac aneurysms. Vascular surgery was consulted from the ER and CT of the thoracic aorta was done showed extensive atherosclerotic changes. Large abdominal aortic aneurysm is suspected intramural hematoma. No periaortic hematoma or collection with no extr avasation of injected IV contrast. Reduced enhancement of the right common iliac artery with a large aneurysm at its bifurcation likely thrombosed and due to lack of enhancement. Laboratory showed WBC 10.6 hemoglobin 15.9 and platelets 227 BUN 24 and creatinine 0.62 Urinalysis showed trace leukoesterase clear with nitrite negative and WBC is 11. Subjective: I am resume the care of the patient on 05/03/2021 This is a pleasant 71 years old female who presents with right lower quadrant abdominal pain and tenderness and sometimes even into the right groin, with no history of fall or trauma, and while she was also using [place] for her back pain. She denies nausea vomiting or diarrhea. No dysuria or urgency, no vaginal discharge or bleeding. She is alert awake and oriented 3 and her gait is normal. 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 Vascular surgery they recommended outpatient follow-up with their office tomorrow as she has already an appointment however not sure if patient will be cleared for discharge prior to that. Gen. surgery consulted looks like patient has abdominal pain and her colon is filled with stool indicating constipation, patient was started on Colace and senna. Urologist also consulted for her kidney stones and hydroureter/hydronephrosis of the left side however she does not complain of from left side abdominal pain or flank pain. 05/04/2021 Patient still complaining right lower quadrant abdominal pain and tenderness with no rebound tenderness, no significant distress due to pain. She is having frequent bowel movements regarding her constipation and Gen. surgery on the case recommended conservative management. Also urologist recommended adding Flomax and follow-up as an outpatient, with no indication for current surgical intervention. Still vascular surgery seeing the patient and decide about plan of care. Her appointment with Dr. Carter is rescheduled for next week. See discharge instructions. Also discontinue Dilaudid and continue with home dose of [place] Possible discharge in 24-48 hours if she keeps improving and cleared by consultants Objective - Vital Signs Vital signs: Vital Signs Temp 97.8 F 05/04/21 14:30 Pulse 70 05/04/21 14:30 Resp 18 05/04/21 14:30 BP 161/95 05/04/21 14:30 Pulse Ox 98 05/04/21 14:30 Intake & Output 05/03/21 05/04/21 05/04/21 18:59 06:59 18:59 Intake Total 600 Balance 600 Weight 49.442 kg Intake: Oral 600 Other: Voiding Method Toilet Toilet # Voids 1 1 1 # Bowel Movements 5 - Exam GENERAL: The patient is alert and oriented x3, not in any acute distress. Well developed, well nourished. HEENT: Pupils are round and equally reacting to light. EOMI. No scleral icterus. No conjunctival pallor. Normocephalic, atraumatic. No pharyngeal erythema. No thyromegaly. CARDIOVASCULAR: S1 and S2 present. No murmurs, rubs, or gallops. PULMONARY: Chest is clear to auscultation, no wheezing or crackles. -ABDOMEN: Soft, RLQ tenderness with no rebound tenderness or guarding, nondistended, normoactive bowel sounds. No palpable organomegaly. MUSCULOSKELETAL: No joint swelling or deformity. EXTREMITIES: No cyanosis, clubbing, or pedal edema. NEUROLOGICAL: Gross neurological examination did not reveal any focal deficits. SKIN: No rashes. no petechiae. - Labs CBC & Chem 7: 05/04/21 06:02 05/03/21 05:49 Labs: Abnormal Lab Results - Last 24 Hours (Table) 05/04/21 Range/Units 06:02 WBC 11.46 H (4.50-10.00) X 10*3/uL MCHC 31.1 L (32.0-37.0) g/dL Eosinophils # 0.46 H (0.04-0.35) X 10*3/uL Basophils # 0.15 H (0.00-0.10) X 10*3/uL Assessment and Plan Assessment: Right lower quadrant abdominal pain and groin pain. Mostly related to constipation. Also could be related to nonobstructing renal calculi and possible arterial aneurysm as below Constipation Large abdominal aortic aneurysm 4.6 cm and extending up to 7.4 cm with suspected intramural hematoma. Large right common iliac artery aneurysm. Left-sided obstructing 3 mm renal calculi with hydronephrosis . Elevated blood pressure on admission likely due to pain. Patient treatment with acute urinary tract infection History of back surgery Anxiety Osteoarthritis DVT prophylaxis \ Plan: This is a pleasant 71 years old female who presents with abdominal pain in the right lower quadrant area Continue with Colace and senna, and lactulose when necessary per surgery team recommendation follow her closely. Vascular surgery for her aortic and right internal iliac artery aneurysms, they recommended coiling versus iliac branch device. Urologist team were consulted Pain management Labs and medication were reviewed.. Continue same treatment. Continue with symptomatic treatment. Resume home medication. Monitor lytes and vitals. DVT and GI prophylaxis. Further recommendations as per clinical course of the patient DVT prophylaxis: Subcutaneous heparin GI Prophylaxis: Pepcid
--- NOTE | 2021-05-04 16:28 | P.PN ---
Subjective Progress Note Date: 05/04/21 Patient seen and examined. Still has vague abdominal pain in her right lower quadrant. No plans otherwise. Anxious Objective - Vital Signs Vital signs: Vital Signs Temp 97.8 F 05/04/21 14:30 Pulse 70 05/04/21 14:30 Resp 18 05/04/21 14:30 BP 161/95 05/04/21 14:30 Pulse Ox 98 05/04/21 14:30 Intake & Output 05/03/21 05/04/21 05/04/21 18:59 06:59 18:59 Intake Total 600 Balance 600 Weight 49.442 kg Intake: Oral 600 Other: Voiding Method Toilet Toilet # Voids 1 1 1 # Bowel Movements 5 - Exam Gen. is a pleasant cooperative elderly, thin female in no acute distress. HEENT is normocephalic, atraumatic, extraocular motion intact. Heart appears regular at this time. Lungs are clear bilaterally. Abdomen is soft, mild lower qu adrant tenderness to palpation. No obvious pulsatile masses noted. Palpable radial and femoral pulses bilaterally. Minimal mood and affect. Cranial nerves II through XII grossly intact - Labs CBC & Chem 7: 05/04/21 06:02 05/03/21 05:49 Labs: Abnormal Lab Results - Last 24 Hours (Table) 05/04/21 Range/Units 06:02 WBC 11.46 H (4.50-10.00) X 10*3/uL MCHC 31.1 L (32.0-37.0) g/dL Eosinophils # 0.46 H (0.04-0.35) X 10*3/uL Basophils # 0.15 H (0.00-0.10) X 10*3/uL Assessment and Plan Assessment: Infrarenal abdominal aortic aneurysm, right iliac aneurysm Plan: Workup and evaluation for repair per Dr. Carter. Not a candidate for iliac branch device. Current plan is to go forward with a angiogram and possible coiling if the aneurysm in the internal iliac is patent. Dr. Carter is available to do this on Saturday should the patient remained inpatient for her blood pressure and pain control. Otherwise she can see him in the office for further outpatient planning for further outpatient planning
[2021-05-04] MEDS: busPIRone HCl 5 MG TAB PO PRN (20:56)
[2021-05-04] MEDS: METOPROLOL TARTRATE 50 MG TAB PO SCH (20:56)
[2021-05-05] MEDS: ACETAMINOPHEN TAB 325 MG TAB PO PRN ×2 (05:04→20:23)
[2021-05-05] MEDS: HYDROcodone/APAP 7.5-325MG 1 EACH TAB PO SCH ×3 (08:00→20:22)
[2021-05-05] MEDS: NICOTINE 21MG/24HR PATCH TRANSDERM SCH (09:01)
[2021-05-05] MEDS: FAMOTIDINE 20 MG TAB PO SCH (09:01)
[2021-05-05] MEDS: HEPARIN SODIUM,PORCINE/PF 5,000 UNIT/0.5 ML SYRINGE SQ SCH ×2 (09:01→20:22)
[2021-05-05] MEDS: CHOLECALCIFEROL 25 MCG (1000 IU) TABLET PO SCH (09:01)
[2021-05-05] MEDS: METOPROLOL TARTRATE 50 MG TAB PO SCH ×2 (09:01→20:21)
[2021-05-05] MEDS: DULoxetine HCL 60 MG CAPSULE.DR PO SCH (09:01)
[2021-05-05] MEDS: DOCUSATE 100 MG CAP PO SCH ×2 (09:01→20:21)
--- NOTE | 2021-05-05 09:43 | P.PN ---
Progress Note - Text Progress Note Date: 05/05/21 The patient maintained stable. Her constipation improved. She has some minimal abdominal pain. She is currently being worked up for vascular surgery for right internal iliac aneurysm. Abdomen soft there is no rebound or guarding. No general surgical intervention planned. Constipation has resolved.
[2021-05-05] MEDS ORDERED: amLODIPine 5 MG TAB PO SCH (10:30)
[2021-05-05] MEDS ORDERED: amLODIPine 5 MG TAB PO STA (13:40)
[2021-05-05] MEDS: hydrALAZINE HCL 25 MG TAB PO SCH (14:10)
--- NOTE | 2021-05-05 14:44 | P.PN ---
Progress Note - Text Progress Note Date: 05/05/21 This morning the patient reports mild left lower quadrant abdominal pain, likely due to her left distal ureteral calculus. However, the pain is tolerable and the majority of her pain is right-sided. She is scheduled to undergo repair of the right internal iliac aneurysm on 05/08/2021. I have suggested she continue to take tamsulosin daily, [place] as needed, and strain her urine. She will be advised to undergo ureteroscopic removal of the calculus if her pain becomes intractable.
[2021-05-05] MEDS: TAMSULOSIN 0.4 MG CAP.ER.24H PO SCH (15:37)
--- NOTE | 2021-05-05 19:24 | P.PN ---
Subjective Patient is a 71-year-old female with a known history of back surgery and prior history of smoking and anxiety presents to ER with complaints of right lower quadrant abdominal pain. Patient states that she has been having symptoms for the past 3 weeks and was seen by her physician. Her urinalysis as an outpatient showed blood in the urine and was treated for urinary tract infection with antibiotics which she took for 7 days.. Patient did not improve symptomatically and due to worsening pain patient presents to ER. Patient states her pain is mainly in the right lower quadrant and groin region and going down to the right upper thigh region and towards the back. Denies any shortness of breath. Denies any pain in the legs with walking. No fever no chills. No cough or sputum production. Denies any dysuria or hematuria. No lightheadedness or dizziness. No prior history of abdominal surgery. CT of abdominal pelvis showed 3 mm obstructing stone within the pelvic portion of the left ureter causing moderate left-sided hydronephrosis and hydronephrosis likely chronic. Bilateral nonobstructing renal calculi. No right-sided hydroureter or hydro nephrosis. Abdominal aortic and right common iliac aneurysms. Vascular surgery was consulted from the ER and CT of the thoracic aorta was done showed extensive atherosclerotic changes. Large abdominal aortic aneurysm is suspected intramural hematoma. No periaortic hematoma or collection with no extr avasation of injected IV contrast. Reduced enhancement of the right common iliac artery with a large aneurysm at its bifurcation likely thrombosed and due to lack of enhancement. Laboratory showed WBC 10.6 hemoglobin 15.9 and platelets 227 BUN 24 and creatinine 0.62 Urinalysis showed trace leukoesterase clear with nitrite negative and WBC is 11. Subjective: I am resume the care of the patient on 05/03/2021 This is a pleasant 71 years old female who presents with right lower quadrant abdominal pain and tenderness and sometimes even into the right groin, with no history of fall or trauma, and while she was also using [place] for her back pain. She denies nausea vomiting or diarrhea. No dysuria or urgency, no vaginal discharge or bleeding. She is alert awake and oriented 3 and her gait is normal. 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 Vascular surgery they recommended outpatient follow-up with their office tomorrow as she has already an appointment however not sure if patient will be cleared for discharge prior to that. Gen. surgery consulted looks like patient has abdominal pain and her colon is filled with stool indicating constipation, patient was started on Colace and senna. Urologist also consulted for her kidney stones and hydroureter/hydronephrosis of the left side however she does not complain of from left side abdominal pain or flank pain. 05/04/2021 Patient still complaining right lower quadrant abdominal pain and tenderness with no rebound tenderness, no significant distress due to pain. She is having frequent bowel movements regarding her constipation and Gen. surgery on the case recommended conservative management. Also urologist recommended adding Flomax and follow-up as an outpatient, with no indication for current surgical intervention. Still vascular surgery seeing the patient and decide about plan of care. Her appointment with Dr. Carter is rescheduled for next week. See discharge instructions. Also discontinue Dilaudid and continue with home dose of [place] Possible discharge in 24-48 hours if she keeps improving and cleared by consultants 05/05/2021 Patient with right lower quadrant abdominal pain and mild tenderness. Her blood pressure still elevated despite starting metoprolol 50 mg twice daily, her pressure today went up to 185/106 and 193/118. We started Norvasc 5 mg twice a day and hydralazine 25 mg twice a day and the blood pressure improved to 163/80. Discussed with vascular surgery team the options to the patient go home and follow up with Dr. Gaviria on this, or stay on same treatment till Saturday in the hospital for coiling procedure for her right internal iliac artery thrombosed aneurysm. I discussed options with the patient's, she doesn't feel she is ready to go home today. We'll keep monitoring her blood pressure closely Urologist and general surgery team the following the patient's with no further workup or treatment options. Patient having several bowel movements and she does not think constipation is the main a problem for her. Also with no urinary complaints Objective - Vital Signs Vital signs: Vital Signs Temp 98.2 F 05/05/21 07:00 Pulse 57 L 05/05/21 07:00 Resp 18 05/05/21 07:00 BP 169/93 05/05/21 07:00 Pulse Ox 96 05/05/21 07:00 Intake & Output 05/04/21 05/05/21 05/05/21 18:59 06:59 18:59 Intake Total 118 Balance 118 Weight 49.442 kg Intake: Oral 118 Other: Voiding Method Toilet # Voids 1 1 - Exam GENERAL: The patient is alert and oriented x3, not in any acute distress. Well developed, well nourished. HEENT: Pupils are round and equally reacting to light. EOMI. No scleral icterus. No conjunctival pallor. Normocephalic, atraumatic. No pharyngeal erythema. No thyromegaly. CARDIOVASCULAR: S1 and S2 present. No murmurs, rubs, or gallops. PULMONARY: Chest is clear to auscultation, no wheezing or crackles. -ABDOMEN: Soft, RLQ tenderness with no rebound tenderness or guarding, nondistended, normoactive bowel sounds. No palpable organomegaly. MUSCULOSKELETAL: No joint swelling or deformity. EXTREMITIES: No cyanosis, clubbing, or pedal edema. NEUROLOGICAL: Gross neurological examination did not reveal any focal deficits. SKIN: No rashes. no petechiae. - Labs CBC & Chem 7: 05/04/21 06:02 05/03/21 05:49 Assessment and Plan Assessment: Right lower quadrant abdominal pain and groin pain. Mostly related to constipation. Also could be related to nonobstructing renal calculi and possible arterial aneurysm as below Constipation Large abdominal aortic aneurysm 4.6 cm and extending up to 7.4 cm with suspected intramural hematoma. Large right common iliac artery aneurysm. Left-sided obstructing 3 mm renal calculi with hydronephrosis . Elevated blood pressure on admission likely due to pain. Patient treatment with acute urinary tract infection History of back surgery Anxiety Osteoarthritis DVT prophylaxis \ Plan: This is a pleasant 71 years old female who presents with abdominal pain in the right lower quadrant area Continue with metoprolol, Norvasc and hydralazine and monitor blood pressure closely Continue with [place] and [place], a Vascular surgery for her aortic and right internal iliac artery aneurysms, they recommended coiling (either this Saturday as inpatient or as an outpatient with Dr. Gaviria) Urologist team were consulted Pain management Labs and medication were reviewed.. Continue same treatment. Continue with symptomatic treatment. Resume home medication. Monitor lytes and vitals. DVT and GI prophylaxis. Further recommendations as per clinical course of the patient DVT prophylaxis: Subcutaneous heparin GI Prophylaxis: Pepcid
[2021-05-05] MEDS: amLODIPine 5 MG TAB PO SCH (20:21)
[2021-05-05] MEDS: busPIRone HCl 5 MG TAB PO PRN (20:22)
[2021-05-06] MEDS: hydrALAZINE HCL 25 MG TAB PO SCH ×3 (00:09→23:37)
[2021-05-06] MEDS: HYDROcodone/APAP 7.5-325MG 1 EACH TAB PO SCH ×5 (00:10→23:37)
[2021-05-06] MEDS: CHOLECALCIFEROL 25 MCG (1000 IU) TABLET PO SCH (07:26)
[2021-05-06] MEDS: HEPARIN SODIUM,PORCINE/PF 5,000 UNIT/0.5 ML SYRINGE SQ SCH ×2 (07:26→20:05)
[2021-05-06] MEDS: TAMSULOSIN 0.4 MG CAP.ER.24H PO SCH (07:26)
[2021-05-06] MEDS: amLODIPine 5 MG TAB PO SCH ×2 (07:26→20:05)
[2021-05-06] MEDS: DULoxetine HCL 60 MG CAPSULE.DR PO SCH (07:26)
[2021-05-06] MEDS: FAMOTIDINE 20 MG TAB PO SCH (07:26)
[2021-05-06] MEDS: METOPROLOL TARTRATE 50 MG TAB PO SCH ×2 (07:26→20:05)
[2021-05-06] MEDS: DOCUSATE 100 MG CAP PO SCH ×2 (07:26→20:05)
[2021-05-06] MEDS: NICOTINE 21MG/24HR PATCH TRANSDERM SCH (07:27)
--- NOTE | 2021-05-06 07:57 | P.PN ---
Subjective Progress Note Date: 05/06/21 History of a large right internal iliac aneurysm. Unclear at this time whether or not this aneurysm has spontaneously thrombosed or whether there continues to have some flow persisting plan is for angiography to evaluate for persistent flow. If some flow is identified the next step would be coil embolization. The procedure, risk and benefits were discussed with the patient. Patient wished to proceed. This is scheduled for May 08. Probes would be from the left brachial artery. The patient has a palpable left radial pulse. Objective - Vital Signs Vital signs: Vital Signs Temp 98.2 F 05/06/21 02:20 Pulse 60 05/06/21 02:20 Resp 18 05/06/21 02:20 BP 116/64 05/06/21 02:20 Pulse Ox 97 05/06/21 02:20 Intake & Output 05/05/21 05/06/21 05/06/21 18:59 06:59 18:59 Intake Total 120 Balance 120 Intake: Oral 120 Other: # Voids 1 1 - Labs CBC & Chem 7: 05/04/21 06:02 05/03/21 05:49
--- NOTE | 2021-05-06 10:53 | P.PN ---
Progress Note - Text Progress Note Date: 05/06/21 Mrs. Moss states that she is feeling better today, with less pain. She is afebrile, and her blood pressure is improved. She is receiving tamsulosin, and her urine is being strained. She has not passed a calculus. She is scheduled to undergo vascular surgery on 05/08/2021.
--- NOTE | 2021-05-06 12:25 | P.PN ---
Subjective Patient is a 71-year-old female with a known history of back surgery and prior history of smoking and anxiety presents to ER with complaints of right lower quadrant abdominal pain. Patient states that she has been having symptoms for the past 3 weeks and was seen by her physician. Her urinalysis as an outpatient showed blood in the urine and was treated for urinary tract infection with antibiotics which she took for 7 days.. Patient did not improve symptomatically and due to worsening pain patient presents to ER. Patient states her pain is mainly in the right lower quadrant and groin region and going down to the right upper thigh region and towards the back. Denies any shortness of breath. Denies any pain in the legs with walking. No fever no chills. No cough or sputum production. Denies any dysuria or hematuria. No lightheadedness or dizziness. No prior history of abdominal surgery. CT of abdominal pelvis showed 3 mm obstructing stone within the pelvic portion of the left ureter causing moderate left-sided hydronephrosis and hydronephrosis likely chronic. Bilateral nonobstructing renal calculi. No right-sided hydroureter or hydro nephrosis. Abdominal aortic and right common iliac aneurysms. Vascular surgery was consulted from the ER and CT of the thoracic aorta was done showed extensive atherosclerotic changes. Large abdominal aortic aneurysm is suspected intramural hematoma. No periaortic hematoma or collection with no extr avasation of injected IV contrast. Reduced enhancement of the right common iliac artery with a large aneurysm at its bifurcation likely thrombosed and due to lack of enhancement. Laboratory showed WBC 10.6 hemoglobin 15.9 and platelets 227 BUN 24 and creatinine 0.62 Urinalysis showed trace leukoesterase clear with nitrite negative and WBC is 11. Subjective: I am resume the care of the patient on 05/03/2021 This is a pleasant 71 years old female who presents with right lower quadrant abdominal pain and tenderness and sometimes even into the right groin, with no history of fall or trauma, and while she was also using [place] for her back pain. She denies nausea vomiting or diarrhea. No dysuria or urgency, no vaginal discharge or bleeding. She is alert awake and oriented 3 and her gait is normal. 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 Vascular surgery they recommended outpatient follow-up with their office tomorrow as she has already an appointment however not sure if patient will be cleared for discharge prior to that. Gen. surgery consulted looks like patient has abdominal pain and her colon is filled with stool indicating constipation, patient was started on Colace and senna. Urologist also consulted for her kidney stones and hydroureter/hydronephrosis of the left side however she does not complain of from left side abdominal pain or flank pain. 05/04/2021 Patient still complaining right lower quadrant abdominal pain and tenderness with no rebound tenderness, no significant distress due to pain. She is having frequent bowel movements regarding her constipation and Gen. surgery on the case recommended conservative management. Also urologist recommended adding Flomax and follow-up as an outpatient, with no indication for current surgical intervention. Still vascular surgery seeing the patient and decide about plan of care. Her appointment with Dr. Carter is rescheduled for next week. See discharge instructions. Also discontinue Dilaudid and continue with home dose of [place] Possible discharge in 24-48 hours if she keeps improving and cleared by consultants 05/05/2021 Patient with right lower quadrant abdominal pain and mild tenderness. Her blood pressure still elevated despite starting metoprolol 50 mg twice daily, her pressure today went up to 185/106 and 193/118. We started Norvasc 5 mg twice a day and hydralazine 25 mg twice a day and the blood pressure improved to 163/80. Discussed with vascular surgery team the options to the patient go home and follow up with Dr. Gaviria on this, or stay on same treatment till Saturday in the hospital for coiling procedure for her right internal iliac artery thrombosed aneurysm. I discussed options with the patient's, she doesn't feel she is ready to go home today. We'll keep monitoring her blood pressure closely Urologist and general surgery team the following the patient's with no further workup or treatment options. Patient having several bowel movements and she does not think constipation is the main a problem for her. Also with no urinary complaints 05/06/2021 Patient states improvement in her right lower quadrant abdominal pain today down to 7/10 and she is happy about this improvement, no other GI complaints. Her blood pressure is better controlled today, this morning it was 142/84 I informed the patient with recommendation of vascular surgery team to go home and do follow-up with Dr. Carter on this coming for procedure she still does not feel comfortable going home, she feels anxious and she she wants to stay until Saturday. Especially she got more anxious when she heard that her is admitted to the hospital. We'll keep monitoring for now. Objective - Vital Signs Vital signs: Vital Signs Temp 98 F 05/06/21 08:00 Pulse 78 05/06/21 08:00 Resp 16 05/06/21 08:00 BP 142/84 05/06/21 08:00 Pulse Ox 100 05/06/21 08:00 Intake & Output 05/05/21 05/06/21 05/06/21 18:59 06:59 18:59 Intake Total 120 120 Balance 120 120 Intake: Oral 120 120 Other: Voiding Method Toilet # Voids 1 1 - Exam GENERAL: The patient is alert and oriented x3, not in any acute distress. Well developed, well nourished. HEENT: Pupils are round and equally reacting to light. EOMI. No scleral icterus. No conjunctival pallor. Normocephalic, atraumatic. No pharyngeal erythema. No thyromegaly. CARDIOVASCULAR: S1 and S2 present. No murmurs, rubs, or gallops. PULMONARY: Chest is clear to auscultation, no wheezing or crackles. -ABDOMEN: Soft, RLQ tenderness with no rebound tenderness or guarding, nondistended, normoactive bowel sounds. No palpable organomegaly. MUSCULOSKELETAL: No joint swelling or deformity. EXTREMITIES: No cyanosis, clubbing, or pedal edema. NEUROLOGICAL: Gross neurological examination did not reveal any focal deficits. SKIN: No rashes. no petechiae. - Labs CBC & Chem 7: 05/04/21 06:02 05/03/21 05:49 Assessment and Plan Assessment: Right lower quadrant abdominal pain and groin pain. Mostly related to constipation. Also could be related to nonobstructing renal calculi and possible arterial aneurysm as below Constipation Large abdominal aortic aneurysm 4.6 cm and extending up to 7.4 cm with suspected intramural hematoma. Large right common iliac artery aneurysm. Left-sided obstructing 3 mm renal calculi with hydronephrosis . Elevated blood pressure on admission likely due to pain. Patient treatment with acute urinary tract infection History of back surgery Anxiety Osteoarthritis DVT prophylaxis \ Plan: This is a pleasant 71 years old female who presents with abdominal pain in the right lower quadrant area Continue with metoprolol, Norvasc and hydralazine and monitor blood pressure closely Continue with oRbyn, Vascular surgery for her aortic and right internal iliac artery aneurysms, they recommended coiling (either this Saturday as inpatient or as an outpatient with Dr. Gaviria) Urologist team were consulted Pain management Labs and medication were reviewed.. Continue same treatment. Continue with symptomatic treatment. Resume home medication. Monitor lytes and vitals. DVT and GI prophylaxis. Further recommendations as per clinical course of the patient DVT prophylaxis: Subcutaneous heparin GI Prophylaxis: Pepcid
--- NOTE | 2021-05-06 14:55 | P.PN ---
Subjective Progress Note Date: 05/06/21 CHIEF COMPLAINT: Constipation HISTORY OF PRESENT ILLNESS: The patient is a 71-year-old female being evaluated for iliac aneurysm including abdominal aortic aneurysm. She had incidental finding of chronic constipation. She is having bowel movements. She tolerated beef for lunch. She reports her abdominal pain is improving. ROS: No fevers or chills. No new chest pain. PHYSICAL EXAM: VITAL SIGNS: Reviewed CONSTITUTIONAL: Well developed and in no acute distress. EYES: Conjuctivae without sclera icterus. Extraocular movements grossly intact. HEAD, EARS, NOSE, THROAT: Moist buccal mucosa. Head is atraumatic, normocephalic. Hears conversational speech. No nasal drainage. RESPIRATORY: Non-labored respirations and equal bilateral excursions. CARDIOVASCULAR: Palpable 2+ radial pulses. ABDOMEN: No peritonitis MUSCULOSKELETAL: No gross deformity of the lower extremities noted. No cl ubbing. No cyanosis. SKIN: Good skin turgor. Well perfused. NEUROLOGIC: Cranial nerves II through XII grossly intact. No focal or lateralizing signs. PSYCH: Appropriate affect. Alert and oriented to person, place and time. CLINICAL LABS: Reviewed. Labs with WBC of 11,000 ASSESSMENT: 1. Abdominal aortic aneurysm with iliac aneurysm 2. Constipation PLAN: 1. Diet as tolerated 2. Management of aneurysms per vascular Objective - Vital Signs Vital signs: Vital Signs Temp 98 F 05/06/21 08:00 Pulse 78 05/06/21 08:00 Resp 16 05/06/21 08:00 BP 142/84 05/06/21 08:00 Pulse Ox 100 05/06/21 08:00 Intake & Output 05/05/21 05/06/21 05/06/21 18:59 06:59 18:59 Intake Total 120 120 Balance 120 120 Intake: Oral 120 120 Other: Voiding Method Toilet # Voids 1 1 - Labs CBC & Chem 7: 05/04/21 06:02 05/03/21 05:49
[2021-05-07] MEDS: FAMOTIDINE 20 MG TAB PO SCH (07:21)
[2021-05-07] MEDS: DOCUSATE 100 MG CAP PO SCH ×2 (07:21→21:33)
[2021-05-07] MEDS: CHOLECALCIFEROL 25 MCG (1000 IU) TABLET PO SCH (07:21)
[2021-05-07] MEDS: HYDROcodone/APAP 7.5-325MG 1 EACH TAB PO SCH ×4 (07:21→21:42)
[2021-05-07] MEDS: DULoxetine HCL 60 MG CAPSULE.DR PO SCH (07:21)
[2021-05-07] MEDS: METOPROLOL TARTRATE 50 MG TAB PO SCH (07:22)
[2021-05-07] MEDS: hydrALAZINE HCL 25 MG TAB PO SCH (07:22)
[2021-05-07] MEDS: HEPARIN SODIUM,PORCINE/PF 5,000 UNIT/0.5 ML SYRINGE SQ SCH ×2 (07:22→21:42)
[2021-05-07] MEDS: TAMSULOSIN 0.4 MG CAP.ER.24H PO SCH (07:22)
[2021-05-07] MEDS: NICOTINE 21MG/24HR PATCH TRANSDERM SCH (07:22)
[2021-05-07] MEDS: amLODIPine 5 MG TAB PO SCH ×2 (07:24→20:11)
[2021-05-07 08:14] LABS: Basophils # (A) 0.1 k/uL (0-0.2); Basophils % (A) 2 %; Eosinophils # (A) 0.5 k/uL (0-0.7); Eosinophils % (A) 5 %; HCT 46.7 % (34.0-46.0); HGB 14.8 gm/dL (11.4-16.0); Lymphocytes # (A) 2.9 k/uL (1.0-4.8); Lymphocytes % (A) 30 %; MCH 29.1 pg (25.0-35.0); MCHC 31.8 g/dL (31.0-37.0); MCV 91.7 fL (80.0-100.0); Mean Platelet Volume 9.1; Monocytes # (A) 0.6 k/uL (0-1.0); Monocytes % (A) 6 %; Neutrophils # (A) 5.2 k/uL (1.3-7.7); Neutrophils % (A) 54 %; Platelet Count 215 k/uL (150-450); RBC 5.09 m/uL (3.80-5.40); RDW 13.7 % (11.5-15.5); WBC 9.7 k/uL (3.8-10.6)
[2021-05-07 08:26] LABS: African American GFR (CKD) >90 (>60 ml/min/1.73 sqM); Anion Gap 8 mmol/L; Blood Urea Nitrogen 29 mg/dL (7-17); Calcium 9.6 mg/dL (8.4-10.2); Carbon Dioxide 28 mmol/L (22-30); Chloride 106 mmol/L (98-107); Glucose 91 mg/dL (74-99); Non-African American GFR(CKD) >90 (>60 ml/min/1.73 sqM); Potassium 3.8 mmol/L (3.5-5.1); Sodium 142 mmol/L (137-145)
--- NOTE | 2021-05-07 14:08 | P.PN ---
Subjective Progress Note Date: 05/07/21 CHIEF COMPLAINT: Constipation HISTORY OF PRESENT ILLNESS: The patient is a 71-year-old female being evaluated for iliac aneurysm including abdominal aortic aneurysm. She feels much better as her abdominal pain is resolving. Her daughter is at bedside. She is tolerating diet. She is scheduled for vascular procedure tomorrow. She also has kidney stones. ROS: No fevers or chills. No new chest pain. No passage of kidney stone. BMI 18.7 PHYSICAL EXAM: VITAL SIGNS: Reviewed CONSTITUTIONAL: Well developed and in no acute distress. EYES: Conjuctivae without sclera icterus. Extraocular movements grossly intact. HEAD, EARS, NOSE, THROAT: Moist buccal mucosa. Head is atraumatic, normocephalic. Hears conversational speech. No nasal drainage. RESPIRATORY: Non-labored respirations and equal bilateral excursions. CARDIOVASCULAR: 2+ radial pulses. ABDOMEN: No peritonitis. No diffuse tenderness. MUSCULOSKELETAL: No gross deformity of the lower extremities noted. No clubbing. No cyanosis. SKIN: Good skin turgor. Well perfused. NEUROLOGIC: Cranial nerves II through XII grossly intact. No focal or lateralizing signs. PSYCH: Appropriate affect. Alert and oriented to person, place and time. CLINICAL LABS: Reviewed. Labs with WBC of 11,000, now normal. ASSESSMENT: 1. Abdominal aortic aneurysm with iliac aneurysm 2. Constipation 3. Abdominal pain PLAN: 1. Clinically she has improved from general surgery standpoint for her abdominal pain. 2. May proceed with vascular procedure tomorrow. Objective - Vital Signs Vital signs: Vital Signs Temp 98.1 F 05/07/21 07:48 Pulse 66 05/07/21 07:48 Resp 16 05/07/21 07:48 BP 113/68 05/07/21 07:48 Pulse Ox 99 05/07/21 07:48 Intake & Output 05/06/21 05/07/21 05/07/21 18:59 06:59 18:59 Intake Total 240 120 Balance 240 120 Intake: Oral 240 120 Other: Voiding Method Toilet Toilet # Voids 3 1 - Labs CBC & Chem 7: 05/07/21 07:39 05/07/21 07:39 Labs: Abnormal Lab Results - Last 24 Hours (Table) 05/07/21 05/07/21 Range/Units 07:39 07:39 Hct 46.7 H (34.0-46.0) % BUN 29 H (7-17) mg/dL Assessment and Plan (1) Constipation Current Visit: Yes Status: Acute Code(s): K59.00 - CONSTIPATION, UNSPECIFIED SNOMED Code(s): 65329051 (2) Right lower quadrant abdominal pain Current Visit: Yes Status: Acute Code(s): R10.31 - RIGHT LOWER QUADRANT PAIN SNOMED Code(s): 722140472 (3) AAA (abdominal aortic aneurysm) Current Visit: Yes Status: Acute Code(s): I71.4 - ABDOMINAL AORTIC ANEURYSM, WITHOUT RUPTURE SNOMED Code(s): 932248779 (4) Calculus of ureter Current Visit: Yes Status: Acute Code(s): N20.1 - CALCULUS OF URETER SNOMED Code(s): 09003467 (5) Iliac artery aneurysm, right Current Visit: Yes Status: Acute Code(s): I72.3 - ANEURYSM OF ILIAC ARTERY SNOMED Code(s): 91663298
[2021-05-07] MEDS ORDERED: SODIUM CHLORIDE 0.9% 500 ML 500 ML IV ONE (15:50)
[2021-05-07] MEDS ORDERED: SODIUM CHLORIDE 0.9% 1,000 ML IV SCH (19:30)
--- NOTE | 2021-05-07 19:36 | P.PN ---
Subjective Patient is a 71-year-old female with a known history of back surgery and prior history of smoking and anxiety presents to ER with complaints of right lower quadrant abdominal pain. Patient states that she has been having symptoms for the past 3 weeks and was seen by her physician. Her urinalysis as an outpatient showed blood in the urine and was treated for urinary tract infection with antibiotics which she took for 7 days.. Patient did not improve symptomatically and due to worsening pain patient presents to ER. Patient states her pain is mainly in the right lower quadrant and groin region and going down to the right upper thigh region and towards the back. Denies any shortness of breath. Denies any pain in the legs with walking. No fever no chills. No cough or sputum production. Denies any dysuria or hematuria. No lightheadedness or dizziness. No prior history of abdominal surgery. CT of abdominal pelvis showed 3 mm obstructing stone within the pelvic portion of the left ureter causing moderate left-sided hydronephrosis and hydronephrosis likely chronic. Bilateral nonobstructing renal calculi. No right-sided hydroureter or hydro nephrosis. Abdominal aortic and right common iliac aneurysms. Vascular surgery was consulted from the ER and CT of the thoracic aorta was done showed extensive atherosclerotic changes. Large abdominal aortic aneurysm is suspected intramural hematoma. No periaortic hematoma or collection with no extr avasation of injected IV contrast. Reduced enhancement of the right common iliac artery with a large aneurysm at its bifurcation likely thrombosed and due to lack of enhancement. Laboratory showed WBC 10.6 hemoglobin 15.9 and platelets 227 BUN 24 and creatinine 0.62 Urinalysis showed trace leukoesterase clear with nitrite negative and WBC is 11. Subjective: I am resume the care of the patient on 05/03/2021 This is a pleasant 71 years old female who presents with right lower quadrant abdominal pain and tenderness and sometimes even into the right groin, with no history of fall or trauma, and while she was also using [place] for her back pain. She denies nausea vomiting or diarrhea. No dysuria or urgency, no vaginal discharge or bleeding. She is alert awake and oriented 3 and her gait is normal. 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 Vascular surgery they recommended outpatient follow-up with their office tomorrow as she has already an appointment however not sure if patient will be cleared for discharge prior to that. Gen. surgery consulted looks like patient has abdominal pain and her colon is filled with stool indicating constipation, patient was started on Colace and senna. Urologist also consulted for her kidney stones and hydroureter/hydronephrosis of the left side however she does not complain of from left side abdominal pain or flank pain. 05/04/2021 Patient still complaining right lower quadrant abdominal pain and tenderness with no rebound tenderness, no significant distress due to pain. She is having frequent bowel movements regarding her constipation and Gen. surgery on the case recommended conservative management. Also urologist recommended adding Flomax and follow-up as an outpatient, with no indication for current surgical intervention. Still vascular surgery seeing the patient and decide about plan of care. Her appointment with Dr. Carter is rescheduled for next week. See discharge instructions. Also discontinue Dilaudid and continue with home dose of [place] Possible discharge in 24-48 hours if she keeps improving and cleared by consultants 05/05/2021 Patient with right lower quadrant abdominal pain and mild tenderness. Her blood pressure still elevated despite starting metoprolol 50 mg twice daily, her pressure today went up to 185/106 and 193/118. We started Norvasc 5 mg twice a day and hydralazine 25 mg twice a day and the blood pressure improved to 163/80. Discussed with vascular surgery team the options to the patient go home and follow up with Dr. Gaviria on this, or stay on same treatment till Saturday in the hospital for coiling procedure for her right internal iliac artery thrombosed aneurysm. I discussed options with the patient's, she doesn't feel she is ready to go home today. We'll keep monitoring her blood pressure closely Urologist and general surgery team the following the patient's with no further workup or treatment options. Patient having several bowel movements and she does not think constipation is the main a problem for her. Also with no urinary complaints 05/06/2021 Patient states improvement in her right lower quadrant abdominal pain today down to 7/10 and she is happy about this improvement, no other GI complaints. Her blood pressure is better controlled today, this morning it was 142/84 I informed the patient with recommendation of vascular surgery team to go home and do follow-up with Dr. Carter on this coming for procedure she still does not feel comfortable going home, she feels anxious and she she wants to stay until Saturday. Especially she got more anxious when she heard that her is admitted to the hospital. We'll keep monitoring for now. 05/07/2021 Patient of LQ abdominal pain and an tenderness improving 7/sent down to 5/10 today. She does not have bowel movement today. Her blood pressure dropped down to 96/59 and heart rate was 52 and once went down to 63 therefore we gave a bolus of normal saline at 500 mL per hour and started normal saline 75 mL/h, we discontinued hydralazine, held Norvasc tonight and lower the dose of metoprolol 50 down to 25 mg with holding parameters. is scheduled for surgical procedure for her right internal iliac artery aneurysm. Objective - Vital Signs Vital signs: Vital Signs Temp 98.1 F 05/07/21 07:48 Pulse 66 05/07/21 07:48 Resp 16 05/07/21 07:48 BP 113/68 05/07/21 07:48 Pulse Ox 99 05/07/21 07:48 Intake & Output 05/06/21 05/07/21 05/07/21 18:59 06:59 18:59 Intake Total 240 120 Balance 240 120 Intake: Oral 240 120 Other: Voiding Method Toilet Toilet # Voids 3 1 - Exam GENERAL: The patient is alert and oriented x3, not in any acute distress. Well developed, well nourished. HEENT: Pupils are round and equally reacting to light. EOMI. No scleral icterus. No conjunctival pallor. Normocephalic, atraumatic. No pharyngeal erythema. No thyromegaly. CARDIOVASCULAR: S1 and S2 present. No murmurs, rubs, or gallops. PULMONARY: Chest is clear to auscultation, no wheezing or crackles. -ABDOMEN: Soft, RLQ tenderness with no rebound tenderness or guarding, nondisten ded, normoactive bowel sounds. No palpable organomegaly. MUSCULOSKELETAL: No joint swelling or deformity. EXTREMITIES: No cyanosis, clubbing, or pedal edema. NEUROLOGICAL: Gross neurological examination did not reveal any focal deficits. SKIN: No rashes. no petechiae. - Labs CBC & Chem 7: 05/07/21 07:39 05/07/21 07:39 Labs: Abnormal Lab Results - Last 24 Hours (Table) 05/07/21 05/07/21 Range/Units 07:39 07:39 Hct 46.7 H (34.0-46.0) % BUN 29 H (7-17) mg/dL Assessment and Plan Assessment: Right lower quadrant abdominal pain and groin pain. Mostly related to constipation. Also could be related to nonobstructing renal calculi and possible arterial aneurysm as below Constipation Large abdominal aortic aneurysm 4.6 cm and extending up to 7.4 cm with suspected intramural hematoma. Large right common iliac artery aneurysm. Left-sided obstructing 3 mm renal calculi with hydronephrosis . Elevated blood pressure on admission likely due to pain. Patient treatment with acute urinary tract infection History of back surgery Anxiety Osteoarthritis Plan: This is a pleasant 71 years old female who presents with abdominal pain in the right lower quadrant area Continue with metoprolol at lower dose, Norvasc and monitor blood pressure. Discontinue hydralazine Continue with Colace and senna, Vascular surgery for her aortic and right internal iliac artery aneurysms, they recommended coiling tomorrow Saturday Urologist team were consulted Pain management Labs and medication were reviewed.. Continue same treatment. Continue with symptomatic treatment. Resume home medication. Monitor lytes and vitals. DVT and GI prophylaxis. Further recommendations as per clinical course of the patient DVT prophylaxis: Subcutaneous heparin GI Prophylaxis: Pepcid
[2021-05-07] MEDS: METOPROLOL TARTRATE 25 MG TAB PO SCH (21:34)
[2021-05-08 06:39] LABS: African American GFR (CKD) >90 (>60 ml/min/1.73 sqM); Anion Gap 1 mmol/L; Blood Urea Nitrogen 25 mg/dL (7-17); Calcium 9.2 mg/dL (8.4-10.2); Carbon Dioxide 29 mmol/L (22-30); Chloride 111 mmol/L (98-107); Glucose 92 mg/dL (74-99); Non-African American GFR(CKD) >90 (>60 ml/min/1.73 sqM); Potassium 4.1 mmol/L (3.5-5.1); Sodium 141 mmol/L (137-145)
[2021-05-08] MEDS: DULoxetine HCL 60 MG CAPSULE.DR PO SCH (08:25)
[2021-05-08] MEDS: FAMOTIDINE 20 MG TAB PO SCH (08:25)
[2021-05-08] MEDS: NICOTINE 21MG/24HR PATCH TRANSDERM SCH ×2 (08:25→08:29)
[2021-05-08] MEDS: DOCUSATE 100 MG CAP PO SCH ×2 (08:25→20:47)
[2021-05-08] MEDS: HEPARIN SODIUM,PORCINE/PF 5,000 UNIT/0.5 ML SYRINGE SQ SCH ×2 (08:25→20:48)
[2021-05-08] MEDS: TAMSULOSIN 0.4 MG CAP.ER.24H PO SCH (08:25)
[2021-05-08] MEDS: HYDROcodone/APAP 7.5-325MG 1 EACH TAB PO SCH ×5 (08:25→21:58)
[2021-05-08] MEDS: METOPROLOL TARTRATE 25 MG TAB PO SCH ×2 (08:25→20:47)
[2021-05-08] MEDS: CHOLECALCIFEROL 25 MCG (1000 IU) TABLET PO SCH (08:26)
[2021-05-08] MEDS: amLODIPine 5 MG TAB PO SCH (08:26)
[2021-05-08] MEDS ORDERED: LIDOCAINE 1% INJ 10MG/ML (20 ML MDV) ONE (13:08)
[2021-05-08] MEDS ORDERED: LIDOCAINE 1% INJ 10MG/ML (20 ML MDV) SQ ONE (13:27)
[2021-05-08] MEDS ORDERED: MIDAZOLAM 2 MG/2 ML VIAL IV ONE (13:30)
[2021-05-08] MEDS ORDERED: VERAPAMIL 2.5 MG/ML 2 ML AMP ONE (13:31)
[2021-05-08] MEDS ORDERED: HEPARIN SODIUM 1,000 UN/ML (10ML VL) ONE (13:31)
[2021-05-08] MEDS ORDERED: SODIUM CHLORIDE 0.9% 500 ML 500 ML IV ONE (13:33)
--- NOTE | 2021-05-08 14:04 | P.PN ---
Subjective Progress Note Date: 05/08/21 CHIEF COMPLAINT: Abdominal pain HISTORY OF PRESENT ILLNESS: Patient denies any abdominal pain. She is having bowel movements. She is scheduled for vascular surgery procedure today. Denies any nausea or vomiting. Has tolerated diet. Afebrile. WBC 9.7 hemoglobin 14.8 PHYSICAL EXAM: VITAL SIGNS: Reviewed. GENERAL: Well-developed in no acute distress. HEENT: No sclera icterus. Extraocular movements grossly intact. Moist buccal mucosa. Head is atraumatic, normocephalic. ABDOMEN: Soft. Nondistended. nontender NEUROLOGIC: Alert and oriented. Cranial nerves II through XII grossly intact. ASSESSMENT: 1. Abdominal pain resolved 2. Constipation 3. Abdominal aortic aneurysm being evaluated by basilar surgery 4. 3 mm obstructing stone in the left ureter with hydronephrosis. Being e valuated by urology PLAN: -Continue current bowel regimen -Continue supportive care -No surgical intervention planned -Patient is stable from surgical standpoint for discharge when medically cleared Physician Shipwright Supervisor note has been reviewed by physician. Signing provider agrees with the documented findings, assessment, and plan of care. Objective - Vital Signs Vital signs: Vital Signs Temp 98.2 F 05/08/21 07:40 Pulse 61 05/08/21 07:40 Resp 16 05/08/21 07:40 BP 149/76 05/08/21 07:40 Pulse Ox 98 05/08/21 07:40 Intake & Output 05/07/21 05/08/21 05/08/21 18:59 06:59 18:59 Intake Total 360 0 Balance 360 0 Intake: Oral 360 0 Other: Voiding Method Toilet Toilet # Voids 2 2 1 - Labs CBC & Chem 7: 05/07/21 07:39 05/08/21 05:43 Labs: Abnormal Lab Results - Last 24 Hours (Table) 05/08/21 Range/Units 05:43 Chloride 111 H (98-107) mmol/L BUN 25 H (7-17) mg/dL
--- NOTE | 2021-05-08 14:30 | IR ---
EXAMINATION TYPE: IR angio abdominal w runoff DATE OF EXAM: 05/08/2021 COMPARISON: NONE HISTORY: Fluoroscopy time. Fluoroscopy was provided to the referring clinician.
--- NOTE | 2021-05-08 14:42 | P.OP ---
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 Iliacs: A lateral common iliac arteries are ectatic and the right internal iliac artery is aneurysmal with out any outflow noted or able to be visualized. Aneurysm is [place]. Operative narrative: After written informed consent was obtained the patient all risks benefits competitions were described the patient is brought to the Environmental Auditor and laid in a supine position. The area of the left wrist was prepped and draped in the usual sterile fashion. Local anesthesia with moderate sedation was performed with continuous pulse ox monitoring and EKG monitoring. Utilizing ultrasound the left radial artery was visualized and shown to be patent without any significant plaque. Utilizing a multipurpose needle under ultrasound guidance the artery was accessed. Guidewire was placed followed by 5-Tamazight sheath. 035 Glidewire was then placed into the aorta followed by pigtail catheter. Angiogram was then obtained of the aorta. Angled catheter was then exchanged and directed into the right common iliac artery and internal iliac artery and angiograms were obtained demonstrating a large internal iliac artery aneurysm. Multiple views were then obtained attempting to see the distal aspect of the internal iliac artery which was unable to be visualized. The common iliac artery just above the aneurysm was extremely ectatic and aneurysmal and decision was made to best treat this area she would need a large stent graft across the iliac artery and coil embolization of the internal iliac aneurysm. Due to the fact she has a large aortic aneurysm as well we'll bring her back for endovascular aortic repair, embolization of the internal iliac and covering of the internal iliac. Once completed all guidewires, catheters and sheaths were removed and pressure was placed for hemostasis. Patient tolerated procedure well was sent to PACU for recovery
--- NOTE | 2021-05-08 17:31 | P.PN ---
Subjective Patient is a 71-year-old female with a known history of back surgery and prior history of smoking and anxiety presents to ER with complaints of right lower quadrant abdominal pain. Patient states that she has been having symptoms for the past 3 weeks and was seen by her physician. Her urinalysis as an outpatient showed blood in the urine and was treated for urinary tract infection with antibiotics which she took for 7 days.. Patient did not improve symptomatically and due to worsening pain patient presents to ER. Patient states her pain is mainly in the right lower quadrant and groin region and going down to the right upper thigh region and towards the back. Denies any shortness of breath. Denies any pain in the legs with walking. No fever no chills. No cough or sputum production. Denies any dysuria or hematuria. No lightheadedness or dizziness. No prior history of abdominal surgery. CT of abdominal pelvis showed 3 mm obstructing stone within the pelvic portion of the left ureter causing moderate left-sided hydronephrosis and hydronephrosis likely chronic. Bilateral nonobstructing renal calculi. No right-sided hydroureter or hydro nephrosis. Abdominal aortic and right common iliac aneurysms. Vascular surgery was consulted from the ER and CT of the thoracic aorta was done showed extensive atherosclerotic changes. Large abdominal aortic aneurysm is suspected intramural hematoma. No periaortic hematoma or collection with no extr avasation of injected IV contrast. Reduced enhancement of the right common iliac artery with a large aneurysm at its bifurcation likely thrombosed and due to lack of enhancement. Laboratory showed WBC 10.6 hemoglobin 15.9 and platelets 227 BUN 24 and creatinine 0.62 Urinalysis showed trace leukoesterase clear with nitrite negative and WBC is 11. Subjective: I am resume the care of the patient on 05/03/2021 This is a pleasant 71 years old female who presents with right lower quadrant abdominal pain and tenderness and sometimes even into the right groin, with no history of fall or trauma, and while she was also using Sterling for her back pain. She denies nausea vomiting or diarrhea. No dysuria or urgency, no vaginal discharge or bleeding. She is alert awake and oriented 3 and her gait is normal. 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 Vascular surgery they recommended outpatient follow-up with their office tomorrow as she has already an appointment however not sure if patient will be cleared for discharge prior to that. Gen. surgery consulted looks like patient has abdominal pain and her colon is filled with stool indicating constipation, patient was started on Colace and senna. Urologist also consulted for her kidney stones and hydroureter/hydronephrosis of the left side however she does not complain of from left side abdominal pain or flank pain. 05/04/2021 Patient still complaining right lower quadrant abdominal pain and tenderness with no rebound tenderness, no significant distress due to pain. She is having frequent bowel movements regarding her constipation and Gen. surgery on the case recommended conservative management. Also urologist recommended adding Flomax and follow-up as an outpatient, with no indication for current surgical intervention. Still vascular surgery seeing the patient and decide about plan of care. Her appointment with Dr. Carter is rescheduled for next week. See discharge instructions. Also discontinue Dilaudid and continue with home dose of Sterling Possible discharge in 24-48 hours if she keeps improving and cleared by consultants 05/05/2021 Patient with right lower quadrant abdominal pain and mild tenderness. Her blood pressure still elevated despite starting metoprolol 50 mg twice daily, her pressure today went up to 185/106 and 193/118. We started Norvasc 5 mg twice a day and hydralazine 25 mg twice a day and the blood pressure improved to 163/80. Discussed with vascular surgery team the options to the patient go home and follow up with Dr. Gaviria on this, or stay on same treatment till Saturday in the hospital for coiling procedure for her right internal iliac artery thrombosed aneurysm. I discussed options with the patient's, she doesn't feel she is ready to go home today. We'll keep monitoring her blood pressure closely Urologist and general surgery team the following the patient's with no further workup or treatment options. Patient having several bowel movements and she does not think constipation is the main a problem for her. Also with no urinary complaints 05/06/2021 Patient states improvement in her right lower quadrant abdominal pain today down to 7/10 and she is happy about this improvement, no other GI complaints. Her blood pressure is better controlled today, this morning it was 142/84 I informed the patient with recommendation of vascular surgery team to go home and do follow-up with Dr. Carter on this coming for procedure she still does not feel comfortable going home, she feels anxious and she she wants to stay until Saturday. Especially she got more anxious when she heard that her is admitted to the hospital. We'll keep monitoring for now. 05/07/2021 Patient of LQ abdominal pain and an tenderness improving 7/sent down to 5/10 today. She does not have bowel movement today. Her blood pressure dropped down to 96/59 and heart rate was 52 and once went down to 63 therefore we gave a bolus of normal saline at 500 mL per hour and started normal saline 75 mL/h, we discontinued hydralazine, held Norvasc tonight and lower the dose of metoprolol 50 down to 25 mg with holding parameters. is scheduled for surgical procedure for her right internal iliac artery aneurysm. 05/08/2021 Patient still complaining from right lower quadrant abdominal pain 10/25 Patient evaluated by vascular surgery and Patient today underwent aortogram with selective right internal iliac artery angiogram: Showing infrarenal aortic aneurysm with calcification + common iliac artery is ectatic and right internal iliac artery is aneurysmal without any outflow. Vascular surgery, to keep monitoring the patient for now Blood pressure is still elevated therefore we added hydralazine 25 twice a day and lowered Norvasc to 5 mg daily. Continue with metoprolol 25 twice a day. Creatinine normal 0.6 Objective - Vital Signs Vital signs: Vital Signs Temp 98.2 F 05/08/21 07:40 Pulse 61 05/08/21 07:40 Resp 16 05/08/21 07:40 BP 149/76 05/08/21 07:40 Pulse Ox 98 05/08/21 07:40 Intake & Output 05/07/21 05/08/21 05/08/21 18:59 06:59 18:59 Intake Total 360 0 Balance 360 0 Intake: Oral 360 0 Other: Voiding Method Toilet Toilet # Voids 2 2 1 - Exam GENERAL: The patient is alert and oriented x3, not in any acute distress. Well developed, well nourished. HEENT: Pupils are round and equally reacting to light. EOMI. No scleral icterus. No conjunctival pallor. Normocephalic, atraumatic. No pharyngeal erythema. No thyromegaly. CARDIOVASCULAR: S1 and S2 present. No murmurs, rubs, or gallops. PULMONARY: Chest is clear to auscultation, no wheezing or crackles. -ABDOMEN: Soft, RLQ tenderness with no rebound tenderness or guarding, nondistended, normoactive bowel sounds. No palpable organomegaly. MUSCULOSKELETAL: No joint swelling or deformity. EXTREMITIES: No cyanosis, clubbing, or pedal edema. NEUROLOGICAL: Gross neurological examination did not reveal any focal deficits. SKIN: No rashes. no petechiae. - Labs CBC & Chem 7: 05/07/21 07:39 05/08/21 05:43 Labs: Abnormal Lab Results - Last 24 Hours (Table) 05/08/21 Range/Units 05:43 Chloride 111 H (98-107) mmol/L BUN 25 H (7-17) mg/dL Assessment and Plan Assessment: Right lower quadrant abdominal pain and groin pain. Mostly related to constipa tion. Also could be related to nonobstructing renal calculi and possible arterial aneurysm as below Constipation Large abdominal aortic aneurysm 4.6 cm and extending up to 7.4 cm with suspected intramural hematoma. Large right common iliac artery aneurysm. Left-sided obstructing 3 mm renal calculi with hydronephrosis . Elevated blood pressure on admission likely due to pain. Patient treatment with acute urinary tract infection History of back surgery Anxiety Osteoarthritis Plan: This is a pleasant 71 years old female who presents with abdominal pain in the right lower quadrant area Continue with metoprolol at 25 mg twice a day, Norvasc 5 mg daily and hydralazine 25 twice a day and monitor blood pressure. Discontinue hydralazine Continue with Colace and senna Vascular surgery follow closely. Status post angiogram showing aneurysm of the aorta and right iliac artery. Pending further recommendation by vascular team Urologist team were consulted Pain management Labs and medication were reviewed.. Continue same treatment. Continue with symptomatic treatment. Resume home medication. Monitor lytes and vitals. DVT and GI prophylaxis. Further recommendations as per clinical course of the patient DVT prophylaxis: Subcutaneous heparin GI Prophylaxis: Pepcid
[2021-05-08] MEDS: hydrALAZINE HCL 25 MG TAB PO SCH (20:47)
[2021-05-09] MEDS: ACETAMINOPHEN TAB 325 MG TAB PO PRN (02:48)
[2021-05-09] MEDS ORDERED: HYDROmorphone 1 MG/ML 1 ML SYRINGE IVP STA (03:00)
[2021-05-09] MEDS: NICOTINE 21MG/24HR PATCH TRANSDERM SCH (08:15)
[2021-05-09] MEDS: HYDROcodone/APAP 7.5-325MG 1 EACH TAB PO SCH (08:16)
[2021-05-09] MEDS: HEPARIN SODIUM,PORCINE/PF 5,000 UNIT/0.5 ML SYRINGE SQ SCH ×2 (08:16→19:45)
[2021-05-09] MEDS: DULoxetine HCL 60 MG CAPSULE.DR PO SCH (08:16)
[2021-05-09] MEDS: METOPROLOL TARTRATE 25 MG TAB PO SCH ×2 (08:16→19:44)
[2021-05-09] MEDS: hydrALAZINE HCL 25 MG TAB PO SCH ×2 (08:17→19:45)
[2021-05-09] MEDS: FAMOTIDINE 20 MG TAB PO SCH (08:17)
[2021-05-09] MEDS: DOCUSATE 100 MG CAP PO SCH ×2 (08:17→19:45)
[2021-05-09] MEDS: TAMSULOSIN 0.4 MG CAP.ER.24H PO SCH (08:17)
[2021-05-09] MEDS: CHOLECALCIFEROL 25 MCG (1000 IU) TABLET PO SCH (08:17)
[2021-05-09] MEDS: amLODIPine 5 MG TAB PO SCH (08:17)
[2021-05-09 09:08] LABS: African American GFR (CKD) >90 (>60 ml/min/1.73 sqM); Anion Gap 3 mmol/L; Blood Urea Nitrogen 19 mg/dL (7-17); Calcium 9.4 mg/dL (8.4-10.2); Carbon Dioxide 28 mmol/L (22-30); Chloride 108 mmol/L (98-107); Glucose 86 mg/dL (74-99); Non-African American GFR(CKD) >90 (>60 ml/min/1.73 sqM); Potassium 3.5 mmol/L (3.5-5.1); Sodium 139 mmol/L (137-145)
[2021-05-09] MEDS ORDERED: LIDOCAINE 1% INJ 10MG/ML (20 ML MDV) ONE ×2 (11:06→12:11)
[2021-05-09] MEDS ORDERED: PHENYLEPHRINE-0.9% NACL SYG 1,000 MCG/10 ML SYRINGE ONE (12:11)
[2021-05-09] MEDS ORDERED: SUCCINYLCHOLINE CHLORIDE 100 MG/5 ML SYR IV ONE (12:11)
[2021-05-09] MEDS ORDERED: hydrALAZINE HCL 20 MG/ML 1 ML VIAL ONE (12:11)
[2021-05-09] MEDS ORDERED: PROPOFOL 10 MG/ML 20 ML VIAL IV ONE (12:11)
[2021-05-09] MEDS ORDERED: ONDANSETRON 4 MG/2 ML VIAL ONE (12:11)
[2021-05-09] MEDS ORDERED: HEPARIN SODIUM,PORCINE 5,000 UNIT/ML 1 ML VIAL ONE (12:11)
[2021-05-09] MEDS ORDERED: GLYCOPYRROLATE 0.2 MG/ML 2 ML VIAL ONE (12:11)
[2021-05-09] MEDS ORDERED: fentaNYL (PF) 50 MCG/ML 2 ML AMP ONE (12:11)
[2021-05-09] MEDS ORDERED: ROCURONIUM 10 MG/ML (5 ML VIAL) IV ONE (12:11)
[2021-05-09] MEDS ORDERED: NEOSTIGMINE 1 MG/ML 10 ML VIAL ONE (12:11)
[2021-05-09] MEDS ORDERED: MIDAZOLAM 2 MG/2 ML VIAL ONE (12:11)
[2021-05-09] MEDS ORDERED: LACTATED RINGERS 1,000 ML IV ONE (14:32)
[2021-05-09] MEDS ORDERED: IOPAMIDOL-250 100ML BTL INTRAARTER ONE ×2 (14:32)
[2021-05-09] MEDS ORDERED: NALOXONE 0.4 MG/ML 10 ML VIAL IVP PRN (14:43)
[2021-05-09] MEDS ORDERED: SODIUM CHLORIDE 0.9% 1,000 ML in EMPTY BAG 1 BAG IV SCH (14:45)
[2021-05-09] MEDS ORDERED: HYDROmorphone 0.5 MG/0.5 ML SYRINGE IVP ONE (15:20)
--- NOTE | 2021-05-09 15:26 | P.PN ---
Subjective Progress Note Date: 05/09/21 CHIEF COMPLAINT: Abdominal pain HISTORY OF PRESENT ILLNESS: Patient denies any abdominal pain. She is having bowel movements. She had vascular surgery procedure today. Denies any nausea or vomiting. Has tolerated diet. Afebrile. PHYSICAL EXAM: VITAL SIGNS: Reviewed. GENERAL: Well-developed in no acute distress. HEENT: No sclera icterus. Extraocular movements grossly intact. Moist buccal mucosa. Head is atraumatic, normocephalic. ABDOMEN: Soft. Nondistended. nontender NEUROLOGIC: Alert and oriented. Cranial nerves II through XII grossly intact. ASSESSMENT: 1. Abdominal pain resolved 2. Constipation 3. Abdominal aortic aneurysm being evaluated by basilar surgery 4. 3 mm obstructing stone in the left ureter with hydronephrosis. Being evaluated by urology PLAN: -Continue current bowel regimen -Continue supportive care -No surgical intervention planned -Patient is stable from surgical standpoint for discharge when medically cleared Physician Cloth Cutter note has been reviewed by physician. Signing provider agrees with the documented findings, assessment, and plan of care. Objective - Vital Signs Vital signs: Vital Signs Temp 97.0 F L 05/09/21 14:55 Pulse 79 05/09/21 14:55 Resp 18 05/09/21 14:55 BP 127/43 05/09/21 14:55 Pulse Ox 96 05/09/21 14:55 Intake & Output 05/08/21 05/09/21 05/09/21 18:59 06:59 18:59 Intake Total 720 0 1050 Balance 720 0 1050 Intake: IV 1050 Intake, IV Titration 600 Amount Sodium Chloride 0.9% 1, 600 000 ml @ 75 mls/hr IV . [id number] [facility] Rx#:[id number] Oral 120 0 Other: Voiding Method Toilet Toilet # Voids 2 2 - Labs CBC & Chem 7: 05/07/21 07:39 05/09/21 07:37 Labs: Abnormal Lab Results - Last 24 Hours (Table) 05/09/21 Range/Units 07:37 Chloride 108 H (98-107) mmol/L BUN 19 H (7-17) mg/dL
[2021-05-09 16:18] LABS: Glucose,Whole Blood 97 mg/dL (75-99)
[2021-05-09 16:22] LABS: Basophils # (A) 0.1 k/uL (0-0.2); Basophils % (A) 1 %; Eosinophils # (A) 0.2 k/uL (0-0.7); Eosinophils % (A) 2 %; HCT 39.6 % (34.0-46.0); HGB 12.8 gm/dL (11.4-16.0); Lymphocytes # (A) 2.6 k/uL (1.0-4.8); Lymphocytes % (A) 21 %; MCH 29.2 pg (25.0-35.0); MCHC 32.2 g/dL (31.0-37.0); MCV 90.6 fL (80.0-100.0); Mean Platelet Volume 10.1; Monocytes # (A) 0.7 k/uL (0-1.0); Monocytes % (A) 6 %; Neutrophils # (A) 8.7 k/uL (1.3-7.7); Neutrophils % (A) 69 %; Platelet Count 183 k/uL (150-450); RBC 4.37 m/uL (3.80-5.40); RDW 13.2 % (11.5-15.5); WBC 12.6 k/uL (3.8-10.6)
--- NOTE | 2021-05-09 16:48 | P.PN ---
Subjective Patient is a 71-year-old female with a known history of back surgery and prior history of smoking and anxiety presents to ER with complaints of right lower quadrant abdominal pain. Patient states that she has been having symptoms for the past 3 weeks and was seen by her physician. Her urinalysis as an outpatient showed blood in the urine and was treated for urinary tract infection with antibiotics which she took for 7 days.. Patient did not improve symptomatically and due to worsening pain patient presents to ER. Patient states her pain is mainly in the right lower quadrant and groin region and going down to the right upper thigh region and towards the back. Denies any shortness of breath. Denies any pain in the legs with walking. No fever no chills. No cough or sputum production. Denies any dysuria or hematuria. No lightheadedness or dizziness. No prior history of abdominal surgery. CT of abdominal pelvis showed 3 mm obstructing stone within the pelvic portion of the left ureter causing moderate left-sided hydronephrosis and hydronephrosis likely chronic. Bilateral nonobstructing renal calculi. No right-sided hydroureter or hydro nephrosis. Abdominal aortic and right common iliac aneurysms. Vascular surgery was consulted from the ER and CT of the thoracic aorta was done showed extensive atherosclerotic changes. Large abdominal aortic aneurysm is suspected intramural hematoma. No periaortic hematoma or collection with no extr avasation of injected IV contrast. Reduced enhancement of the right common iliac artery with a large aneurysm at its bifurcation likely thrombosed and due to lack of enhancement. Laboratory showed WBC 10.6 hemoglobin 15.9 and platelets 227 BUN 24 and creatinine 0.62 Urinalysis showed trace leukoesterase clear with nitrite negative and WBC is 11. Subjective: I am resume the care of the patient on 05/03/2021 This is a pleasant 71 years old female who presents with right lower quadrant abdominal pain and tenderness and sometimes even into the right groin, with no history of fall or trauma, and while she was also using Vinson for her back pain. She denies nausea vomiting or diarrhea. No dysuria or urgency, no vaginal discharge or bleeding. She is alert awake and oriented 3 and her gait is normal. 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 Vascular surgery they recommended outpatient follow-up with their office tomorrow as she has already an appointment however not sure if patient will be cleared for discharge prior to that. Gen. surgery consulted looks like patient has abdominal pain and her colon is filled with stool indicating constipation, patient was started on Colace and senna. Urologist also consulted for her kidney stones and hydroureter/hydronephrosis of the left side however she does not complain of from left side abdominal pain or flank pain. 05/04/2021 Patient still complaining right lower quadrant abdominal pain and tenderness with no rebound tenderness, no significant distress due to pain. She is having frequent bowel movements regarding her constipation and Gen. surgery on the case recommended conservative management. Also urologist recommended adding Flomax and follow-up as an outpatient, with no indication for current surgical intervention. Still vascular surgery seeing the patient and decide about plan of care. Her appointment with Dr. Carter is rescheduled for next week. See discharge instructions. Also discontinue Dilaudid and continue with home dose of Vinson Possible discharge in 24-48 hours if she keeps improving and cleared by consultants 05/05/2021 Patient with right lower quadrant abdominal pain and mild tenderness. Her blood pressure still elevated despite starting metoprolol 50 mg twice daily, her pressure today went up to 185/106 and 193/118. We started Norvasc 5 mg twice a day and hydralazine 25 mg twice a day and the blood pressure improved to 163/80. Discussed with vascular surgery team the options to the patient go home and follow up with Dr. Gaviria on this, or stay on same treatment till Saturday in the hospital for coiling procedure for her right internal iliac artery thrombosed aneurysm. I discussed options with the patient's, she doesn't feel she is ready to go home today. We'll keep monitoring her blood pressure closely Urologist and general surgery team the following the patient's with no further workup or treatment options. Patient having several bowel movements and she does not think constipation is the main a problem for her. Also with no urinary complaints 05/06/2021 Patient states improvement in her right lower quadrant abdominal pain today down to 7/10 and she is happy about this improvement, no other GI complaints. Her blood pressure is better controlled today, this morning it was 142/84 I informed the patient with recommendation of vascular surgery team to go home and do follow-up with Dr. Carter on this coming for procedure she still does not feel comfortable going home, she feels anxious and she she wants to stay until Saturday. Especially she got more anxious when she heard that her is admitted to the hospital. We'll keep monitoring for now. 05/07/2021 Patient of LQ abdominal pain and an tenderness improving 7/sent down to 5 today. She does not have bowel movement today. Her blood pressure dropped down to 96/59 and heart rate was 52 and once went down to 63 therefore we gave a bolus of normal saline at 500 mL per hour and started normal saline 75 mL/h, we discontinued hydralazine, held Norvasc tonight and lower the dose of metoprolol 50 down to 25 mg with holding parameters. is scheduled for surgical procedure for her right internal iliac artery aneurysm. 05/08/2021 Patient still complaining from right lower quadrant abdominal pain 10/25 Patient evaluated by vascular surgery and Patient today underwent aortogram with selective right internal iliac artery angiogram: Showing infrarenal aortic aneurysm with calcification + common iliac artery is ectatic and right internal iliac artery is aneurysmal without any outflow. Vascular surgery, to keep monitoring the patient for now Blood pressure is still elevated therefore we added hydralazine 25 twice a day and lowered Norvasc to 5 mg daily. Continue with metoprolol 25 twice a day. Creatinine normal 0.6 05/09/2021 Patient today he underwent endovascular aneurysm repair with coiling of right internal iliac artery. Full surgery/procedure report is pending. After the procedure patient was transferred to select unit for more close monitoring. She is hemodynamically stable she is saturation 99% on 8 L oxygen via nasal cannula Labs including CBC, and BMP are unremarkable except for mild leukocytosis at 12.6 which is most likely reactive. Patient blood pressure is currently well controlled on regimen of amiodarone 5 mg, hydralazine 25 twice a day and metoprolol 25 twice a day Objective - Vital Signs Vital signs: Vital Signs Temp 97.0 F L 05/09/21 14:55 Pulse 80 05/09/21 16:20 Resp 16 05/09/21 16:20 BP 127/61 05/09/21 16:20 Pulse Ox 95 05/09/21 16:20 Intake & Output 05/08/21 05/09/21 05/09/21 18:59 06:59 18:59 Intake Total 720 0 1450 Balance 720 0 1450 Intake: IV 1450 Intake, IV Titration 600 Amount Sodium Chloride 0.9% 1, 600 000 ml @ 75 mls/hr IV . [id number] [facility] Rx#:[id number] Oral 120 0 Other: Voiding Method Toilet Toilet # Voids 2 2 - Exam GENERAL: The patient is alert and oriented x3, not in any acute distress. Well developed, well nourished. HEENT: Pupils are round and equally reacting to light. EOMI. No scleral icterus. No conjunctival pallor. Normocephalic, atraumatic. No pharyngeal erythema. No thyromegaly. CARDIOVASCULAR: S1 and S2 present. No murmurs, rubs, or gallops. PULMONARY: Chest is clear to auscultation, no wheezing or crackles. -ABDOMEN: Soft, RLQ tenderness with no rebound tenderness or guarding, nondistended, normoactive bowel sounds. No palpable organomegaly. MUSCULOSKELETAL: No joint swelling or deformity. EXTREMITIES: No cyanosis, clubbing, or pedal edema. NEUROLOGICAL: Gross neurological examination did not reveal any focal deficits. SKIN: No rashes. no petechiae. - Labs CBC & Chem 7: 05/09/21 16:04 05/09/21 07:37 Labs: Abnormal Lab Results - Last 24 Hours (Table) 05/09/21 05/09/21 Range/Units 07:37 16:04 WBC 12.6 H (3.8-10.6) k/uL Neutrophils # 8.7 H (1.3-7.7) k/uL Chloride 108 H (98-107) mmol/L BUN 19 H (7-17) mg/dL Assessment and Plan Assessment: Right lower quadrant abdominal pain and groin pain. Mostly related to constipation. Also could be related to nonobstructing renal calculi and possible arterial aneurysm as below Constipation Large abdominal aortic aneurysm 4.6 cm and extending up to 7.4 cm with suspected intramural hematoma. Large right common iliac artery aneurysm. Left-sided obstructing 3 mm renal calculi with hydronephrosis . Elevated blood pressure on admission likely due to pain. Patient treatment with acute urinary tract infection History of back surgery Anxiety Osteoarthritis Plan: This is a pleasant 71 years old female who presents with abdominal pain in the right lower quadrant area Continue with metoprolol at 25 mg twice a day, Norvasc 5 mg daily and hydralazine 25 twice a day and monitor blood pressure. Discontinue hydralazine Continue with Colace and senna Vascular surgery follow closely. Status post angiogram showing aneurysm of the aorta and right iliac artery. Pending further recommendation by vascular team Urologist team were consulted Pain management Patient is undergoing surgical procedure for aneurysm repair with vascular surgery team Labs and medication were reviewed.. Continue same treatment. Continue with symptomatic treatment. Resume home medication. Monitor lytes and vitals. DVT and GI prophylaxis. Further recommendations as per clinical course of the patient DVT prophylaxis: Subcutaneous heparin GI Prophylaxis: Pepcid
[2021-05-09 16:56] LABS: African American GFR (CKD) >90 (>60 ml/min/1.73 sqM); Anion Gap 5 mmol/L; Blood Urea Nitrogen 21 mg/dL (7-17); Calcium 8.6 mg/dL (8.4-10.2); Carbon Dioxide 24 mmol/L (22-30); Chloride 112 mmol/L (98-107); Glucose 103 mg/dL (74-99); Non-African American GFR(CKD) >90 (>60 ml/min/1.73 sqM); Potassium 3.2 mmol/L (3.5-5.1); Sodium 141 mmol/L (137-145)
--- NOTE | 2021-05-09 17:00 | IR ---
Fluoroscopy HISTORY: Abdominal aortic, right iliac artery aneurysm 29.9 minutes fluoroscopy time supplied to the referring clinician. 365 intraoperative C-arm images d ocument the procedure. See dictated report from vascular surgery.
[2021-05-09] MEDS: HYDROcodone/APAP 7.5-325MG 1 EACH TAB PO PRN ×2 (17:20→23:43)
[2021-05-09] MEDS: HYDROmorphone 1 MG/ML 1 ML SYRINGE IVP PRN ×2 (18:38→21:52)
[2021-05-10] MEDS: HYDROmorphone 1 MG/ML 1 ML SYRINGE IVP PRN ×3 (04:14→21:06)
[2021-05-10] MEDS: HYDROcodone/APAP 7.5-325MG 1 EACH TAB PO PRN ×3 (06:12→18:34)
--- NOTE | 2021-05-10 08:07 | P.OP ---
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 Percutaneous endovascular Aortic Repair with [place] Excluder 2. Selective right internal iliac artery angiogram 3. Right internal iliac artery coil embolization 4. Percutaneous closure of bilateral femoral arteries Implants: 22 [place] coils [place] Excluder graft Anesthesia: GETA Surgeon: Carlos Alexander Estimated Blood Loss (ml): 25 Pathology: none sent Condition: stable Disposition: PACU Indications for Procedure: 71 year old female presents to the laboratory helper for elective infrarenal aortic repair and embolization of the right internal iliac artery aneurysm. She originally presented to the hospital secondary to pain in the right lower quadrant and on CT evaluation was found to have a large internal iliac artery aneurysm measuring 4.6cm. She also has an infrarenal AAA measuring 4.6cm. When reviewing the CT there was questionable filling of the internal iliac artery aneurysm and she was taken for an angiogram with possible coil embolization of the internal iliac artery aneurysm. During that procedure it was difficult to determine the inflow or outflow of the aneurysm and she required a covered stent and coiling of the area but her common iliac artery was too ectatic and therefore she presents today to repair the AAA and extend over the internal iliac artery with coil embolization of the internal iliac artery. Description of Procedure: After written and informed consent was obtained from the patient and all risks, benefits, and complications were described the patient was brought to the laboratory helper and laid in a supine position. The area of the groins were prepped and draped in the usual fashion. Utilizing ultrasound the bilateral femoral arteries were visualized and shown to be patent with some posterior plaque. Under ultrasound guidance the femoral arteries were accessed and 2 perclose devices were placed in each femoral artery followed by 8F sheaths. Retrograde angiograms were obtained and the internal iliac aneurysm was visualized. A glidewire was placed up the right femoral sheath and directed into the aorta which was difficult due to significant stenosis of the right common iliac artery. [place] catheter was placed into the descending aorta and a stiff [place] wire was placed. An .035 glidewire was placed through the left femoral sheath and a RBI catheter was placed and the right common iliac artery was accessed and wire was directed into the internal iliac artery aneurysm. Angiogram was performed demonstrating access in the internal iliac artery aneurysm. The catheter was then exchanged for an .038 catheter and a micro catheter was placed in order to deploy the coils. Attention was then placed to the AAA and placement of the aortic graft. Patient was administered heparin and followed with serial ACTs. A 16F sheath was then placed up the right femoral artery into the infrarenal aorta and aortic angiogram was obtained demonstrating anatomy of the aorta and renal arteries. Measurements were obtained and a [id number] aortic main body graft was deployed in the usual fashion. Once completed the ipsilateral iliac limb was measured and a 12mm x14cm was chosen to be placed. The ipsilateral limb was placed into the sheath into the appropriate place and was not deployed at that time in order to deploy the coils in the internal iliac artery aneurysm. Multiple coils were then placed in the internal iliac artery aneurysm. After packing the coils and angiogram was obtained that demonstrated no outflow and attention was placed to deploying the iliac limb. Prior to the iliac limb deployment the contralateral limb gate was cannulated and a stiff wire was placed into the descending aorta. The up and over catheter was removed and the 8F sheath was replaced with a 12F sheath. The contralateral limb was then measured and a 12mm x12cm limb was chosen and deployed above the left internal iliac artery takeoff. The right iliac limb was also deployed in usual fashion. A molding balloon was then placed up both limbs and angioplasty was performed through out. A pigtail was placed and angiogram was performed demonstrating a type 1 endoleak and therefore the molding balloon was placed at the proximal aortic graft and angioplasty was performed. Final angiogram was then obtained demonstrating no endoleaks and completely thrombosed right internal iliac artery aneurysm. All guidewires and catheters were removed and percutaneous closures were secured. An 8F angioseal was also used for the left femoral artery. Once hemostatic the area was cleansed and dressings were placed. The patient tolerated the procedure well and had palpable PT pulses at the conclusion of the procedure. She was then sent to PACU for recovery.
[2021-05-10] MEDS: ATORVASTATIN 40 MG TAB PO SCH (09:06)
[2021-05-10] MEDS: ASPIRIN 81 MG PO SCH (09:06)
[2021-05-10] MEDS: DOCUSATE 100 MG CAP PO SCH ×2 (09:06→21:05)
[2021-05-10] MEDS: HEPARIN SODIUM,PORCINE/PF 5,000 UNIT/0.5 ML SYRINGE SQ SCH ×2 (09:06→21:05)
[2021-05-10] MEDS: amLODIPine 5 MG TAB PO SCH (09:06)
[2021-05-10] MEDS: hydrALAZINE HCL 25 MG TAB PO SCH ×2 (09:06→21:05)
[2021-05-10] MEDS: METOPROLOL TARTRATE 25 MG TAB PO SCH ×2 (09:06→21:05)
[2021-05-10] MEDS: TAMSULOSIN 0.4 MG CAP.ER.24H PO SCH (09:06)
[2021-05-10] MEDS: CHOLECALCIFEROL 25 MCG (1000 IU) TABLET PO SCH (09:06)
[2021-05-10] MEDS: DULoxetine HCL 60 MG CAPSULE.DR PO SCH (09:06)
[2021-05-10] MEDS: FAMOTIDINE 20 MG TAB PO SCH (09:06)
[2021-05-10 09:08] LABS: Basophils # (A) 0.1 k/uL (0-0.2); Basophils % (A) 1 %; Eosinophils % (A) 0 %; HCT 40.1 % (34.0-46.0); HGB 12.7 gm/dL (11.4-16.0); Lymphocytes # (A) 2.1 k/uL (1.0-4.8); Lymphocytes % (A) 15 %; MCH 28.9 pg (25.0-35.0); MCHC 31.6 g/dL (31.0-37.0); MCV 91.2 fL (80.0-100.0); Mean Platelet Volume 9.5; Monocytes # (A) 0.9 k/uL (0-1.0); Monocytes % (A) 7 %; Neutrophils % (A) 75 %; Platelet Count 180 k/uL (150-450); RDW 13.8 % (11.5-15.5); WBC 13.3 k/uL (3.8-10.6)
[2021-05-10] MEDS: NICOTINE 21MG/24HR PATCH TRANSDERM SCH (09:22)
[2021-05-10 09:24] LABS: African American GFR (CKD) >90 (>60 ml/min/1.73 sqM); Anion Gap 3 mmol/L; Blood Urea Nitrogen 20 mg/dL (7-17); Carbon Dioxide 26 mmol/L (22-30); Chloride 109 mmol/L (98-107); Glucose 99 mg/dL (74-99); Non-African American GFR(CKD) >90 (>60 ml/min/1.73 sqM); Potassium 3.1 mmol/L (3.5-5.1); Sodium 138 mmol/L (137-145)
--- NOTE | 2021-05-10 11:48 | P.PN ---
Subjective Progress Note Date: 05/10/21 CHIEF COMPLAINT: Abdominal pain HISTORY OF PRESENT ILLNESS: Patient complaining of pain lower abdomen and groin area. Patient status post initial surgery procedure yesterday with percutaneous endovascular aortic repair and right internal artery coil mobilization with Dr. Alexander. Patient's last bowel movement 2 days ago. Denies any nausea or vomiting. They have a low-grade temp of 100.3. WBC 12.6 Patient seen and examined with Dr. harkins PHYSICAL EXAM: VITAL SIGNS: Reviewed. GENERAL: Well-developed in no acute distress. HEENT: No sclera icterus. Extraocular movements grossly intact. Moist buccal mucosa. Head is atraumatic, normocephalic. ABDOMEN: Soft. Nondistended. NEUROLOGIC: Alert and oriented. Cranial nerves II through XII grossly intact. ASSESSMENT: 1. Abdominal pain resolved 2. Constipation PLAN: -Continue current bowel regimen -Continue supportive care -No surgical intervention planned -Patient is stable from surgical standpoint for discharge when medically cleared Physician Commercial Administrator note has been reviewed by physician. Signing provider agrees with the documented findings, assessment, and plan of care. Objective - Vital Signs Vital signs: Vital Signs Temp 98.4 F 05/10/21 11:41 Pulse 80 05/10/21 11:41 Resp 16 05/10/21 11:41 BP 113/61 05/10/21 11:41 Pulse Ox 93 L 05/10/21 11:41 Intake & Output 05/09/21 05/10/21 05/10/21 18:59 06:59 18:59 Intake Total 1690 Output Total 180 1500 Balance 1510 -1500 Intake: IV 1450 Oral 240 Output: Urine 180 1500 Uretheral (Rodríguez) 500 Other: Voiding Method Indwelling Catheter Toilet Toilet # Voids 1 - Labs CBC & Chem 7: 05/10/21 08:39 05/10/21 08:39 Labs: Abnormal Lab Results - Last 24 Hours (Table) 05/09/21 05/09/21 05/10/21 Range/Units 16:04 16:04 08:39 WBC 12.6 H 13.3 H (3.8-10.6) k/uL Neutrophils # 8.7 H 10.0 H (1.3-7.7) k/uL Potassium 3.2 L (3.5-5.1) mmol/L Chloride 112 H (98-107) mmol/L BUN 21 H (7-17) mg/dL Glucose 103 H (74-99) mg/dL 05/10/21 Range/Units 08:39 WBC (3.8-10.6) k/uL Neutrophils # (1.3-7.7) k/uL Potassium 3.1 L (3.5-5.1) mmol/L Chloride 109 H (98-107) mmol/L BUN 20 H (7-17) mg/dL Glucose (74-99) mg/dL
--- NOTE | 2021-05-10 11:50 | P.PN ---
Subjective Progress Note Date: 05/10/21 Patient is seen and examined sitting up in bed. She is postop day #1 for percutaneous endovascular aortic repair with [place] excluder, selective right internal iliac artery angiogram, right internal iliac artery coil embolization, percutaneous closure of bilateral femoral arteries. She today she states she is having pain in her lower abdomen and back. She denies any chest pain, shortness of breath, pain down her lower extremities, nausea, vomiting, fevers or chills. She did have a low-grade temp max of 100.3. Objective - Vital Signs Vital signs: Vital Signs Temp 100.3 F H 05/10/21 04:00 Pulse 91 05/10/21 04:00 Resp 18 05/10/21 04:00 BP 126/66 05/10/21 04:00 Pulse Ox 93 L 05/10/21 04:00 Intake & Output 05/09/21 05/10/21 05/10/21 18:59 06:59 18:59 Intake Total 1690 Output Total 180 1500 Balance 1510 -1500 Intake: IV 1450 Oral 240 Output: Urine 180 1500 Uretheral (Rodríguez) 500 Other: Voiding Method Indwelling Catheter Toilet # Voids 1 - Exam General appearance: The patient is alert, oriented, appears in no acute distress. HET: Head is normocephalic and atraumatic. Neck: Supple without lymphadenopathy. Trachea midline. Heart: S1 S2. Regular rate and rhythm. Lungs: Clear to auscultation bilaterally. Abdomen: Soft, nontender, nondistended. Extremities: Normal skin color and turgor. No cyanosis, rash, ulceration, clubbing, or edema. Dressings to bilateral groins clean dry and intact. Radial and pedal pulses are 2/4 bilaterally. Neurological: No focal deficits. Strength and sensation are grossly intact. - Labs CBC & Chem 7: 05/10/21 08:39 05/10/21 08:39 Labs: Abnormal Lab Results - Last 24 Hours (Table) 05/09/21 05/09/21 05/09/21 Range/Units 07:37 16:04 16:04 WBC 12.6 H (3.8-10.6) k/uL Neutrophils # 8.7 H (1.3-7.7) k/uL Potassium 3.2 L (3.5-5.1) mmol/L Chloride 108 H 112 H (98-107) mmol/L BUN 19 H 21 H (7-17) mg/dL Glucose 103 H (74-99) mg/dL Assessment and Plan Assessment: 1. Postop day #1 endovascular aortic repair with core exclude or, selective right internal iliac artery angiogram, right internal iliac artery coil embolization, with percutaneous closure of bilateral femoral arteries 2. Infrarenal 4.6 cm abdominal aortic aneurysm 3. 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 Current smoker Plan: 1. Continue symptomatic and supportive care 2. Repeat CBC 3. Incentive spirometer to bedside 4. Encourage ambulation 5. Smoking cessation 6. Continue pain management 7. Continue medical management Anticipate discharge in the next 24-48 hours from a vascular surgical standpoint The impression and plan of care has been dictated as directed. Dr. Rodríguez I performed a history and examination of this patient, discussed the same with the dictator. I agree with the dictator's note ,documented as a scribe. Any additional findings or plans will be noted.
[2021-05-10] MEDS ORDERED: Potassium Replacement Protocol 1 EACH MISC MISCELLANE PRN (11:55)
--- NOTE | 2021-05-10 12:01 | P.PN ---
Subjective Patient is a 71-year-old female with a known history of back surgery and prior history of smoking and anxiety presents to ER with complaints of right lower quadrant abdominal pain. Patient states that she has been having symptoms for the past 3 weeks and was seen by her physician. Her urinalysis as an outpatient showed blood in the urine and was treated for urinary tract infection with antibiotics which she took for 7 days.. Patient did not improve symptomatically and due to worsening pain patient presents to ER. Patient states her pain is mainly in the right lower quadrant and groin region and going down to the right upper thigh region and towards the back. Denies any shortness of breath. Denies any pain in the legs with walking. No fever no chills. No cough or sputum production. Denies any dysuria or hematuria. No lightheadedness or dizziness. No prior history of abdominal surgery. CT of abdominal pelvis showed 3 mm obstructing stone within the pelvic portion of the left ureter causing moderate left-sided hydronephrosis and hydronephrosis likely chronic. Bilateral nonobstructing renal calculi. No right-sided hydroureter or hydro nephrosis. Abdominal aortic and right common iliac aneurysms. Vascular surgery was consulted from the ER and CT of the thoracic aorta was done showed extensive atherosclerotic changes. Large abdominal aortic aneurysm is suspected intramural hematoma. No periaortic hematoma or collection with no extr avasation of injected IV contrast. Reduced enhancement of the right common iliac artery with a large aneurysm at its bifurcation likely thrombosed and due to lack of enhancement. Laboratory showed WBC 10.6 hemoglobin 15.9 and platelets 227 BUN 24 and creatinine 0.62 Urinalysis showed trace leukoesterase clear with nitrite negative and WBC is 11. Subjective: I am resume the care of the patient on 05/03/2021 This is a pleasant 71 years old female who presents with right lower quadrant abdominal pain and tenderness and sometimes even into the right groin, with no history of fall or trauma, and while she was also using [place] for her back pain. She denies nausea vomiting or diarrhea. No dysuria or urgency, no vaginal discharge or bleeding. She is alert awake and oriented 3 and her gait is normal. 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 Vascular surgery they recommended outpatient follow-up with their office tomorrow as she has already an appointment however not sure if patient will be cleared for discharge prior to that. Gen. surgery consulted looks like patient has abdominal pain and her colon is filled with stool indicating constipation, patient was started on Colace and senna. Urologist also consulted for her kidney stones and hydroureter/hydronephrosis of the left side however she does not complain of from left side abdominal pain or flank pain. 05/04/2021 Patient still complaining right lower quadrant abdominal pain and tenderness with no rebound tenderness, no significant distress due to pain. She is having frequent bowel movements regarding her constipation and Gen. surgery on the case recommended conservative management. Also urologist recommended adding Flomax and follow-up as an outpatient, with no indication for current surgical intervention. Still vascular surgery seeing the patient and decide about plan of care. Her appointment with Dr. Carter is rescheduled for next week. See discharge instructions. Also discontinue Dilaudid and continue with home dose of [place] Possible discharge in 24-48 hours if she keeps improving and cleared by consultants 05/05/2021 Patient with right lower quadrant abdominal pain and mild tenderness. Her blood pressure still elevated despite starting metoprolol 50 mg twice daily, her pressure today went up to 185/106 and 193/118. We started Norvasc 5 mg twice a day and hydralazine 25 mg twice a day and the blood pressure improved to 163/80. Discussed with vascular surgery team the options to the patient go home and follow up with Dr. Gaviria on this, or stay on same treatment till Saturday in the hospital for coiling procedure for her right internal iliac artery thrombosed aneurysm. I discussed options with the patient's, she doesn't feel she is ready to go home today. We'll keep monitoring her blood pressure closely Urologist and general surgery team the following the patient's with no further workup or treatment options. Patient having several bowel movements and she does not think constipation is the main a problem for her. Also with no urinary complaints 05/06/2021 Patient states improvement in her right lower quadrant abdominal pain today down to 7/10 and she is happy about this improvement, no other GI complaints. Her blood pressure is better controlled today, this morning it was 142/84 I informed the patient with recommendation of vascular surgery team to go home and do follow-up with Dr. Carter on this coming for procedure she still does not feel comfortable going home, she feels anxious and she she wants to stay until Saturday. Especially she got more anxious when she heard that her is admitted to the hospital. We'll keep monitoring for now. 05/07/2021 Patient of LQ abdominal pain and an tenderness improving 7/sent down to 5/10 today. She does not have bowel movement today. Her blood pressure dropped down to 96/59 and heart rate was 52 and once went down to 63 therefore we gave a bolus of normal saline at 500 mL per hour and started normal saline 75 mL/h, we discontinued hydralazine, held Norvasc tonight and lower the dose of metoprolol 50 down to 25 mg with holding parameters. is scheduled for surgical procedure for her right internal iliac artery aneurysm. 05/08/2021 Patient still complaining from right lower quadrant abdominal pain 8/10 Patient evaluated by vascular surgery and Patient today underwent aortogram with selective right internal iliac artery angiogram: Showing infrarenal aortic aneurysm with calcification + common iliac artery is ectatic and right internal iliac artery is aneurysmal without any outflow. Vascular surgery, to keep monitoring the patient for now Blood pressure is still elevated therefore we added hydralazine 25 twice a day and lowered Norvasc to 5 mg daily. Continue with metoprolol 25 twice a day. Creatinine normal 0.6 05/09/2021 Patient today he underwent endovascular aneurysm repair with coiling of right internal iliac artery. Full surgery/procedure report is pending. After the procedure patient was transferred to select unit for more close monitoring. She is hemodynamically stable she is saturation 99% on 8 L oxygen via nasal cannula Labs including CBC, and BMP are unremarkable except for mild leukocytosis at 12.6 which is most likely reactive. Patient blood pressure is currently well controlled on regimen of amiodarone 5 mg, hydralazine 25 twice a day and metoprolol 25 twice a day 05/10/2021 Patient is a status post percutaneous endovascular aortic repair and right internal iliac artery coil embolization with vascular surgery team. Today is postoperative day #1. Patient awake alert. Some persistent right lower quadrant abdominal pain and tenderness, no chest pain or dyspnea or coughing. No urinary symptoms or diarrhea. However patient developed postop fever of 100.7 today. She has persistent leukocytosis 15.3. She remains on baby aspirin added yesterday at 81 mg daily as well as Lipitor by vascular surgery team. Patient generally doing well. We will repeat chest x-ray and urine analysis in view of fever. Also consult infectious disease team. Objective - Vital Signs Vital signs: Vital Signs Temp 99.0 F 05/10/21 08:00 Pulse 83 05/10/21 08:00 Resp 18 05/10/21 08:00 BP 157/69 05/10/21 08:00 Pulse Ox 93 L 05/10/21 08:00 Intake & Output 05/09/21 05/10/21 05/10/21 18:59 06:59 18:59 Intake Total 1690 Output Total 180 1500 Balance 1510 -1500 Intake: IV 1450 Oral 240 Output: Urine 180 1500 Uretheral (Rodríguez) 500 Other: Voiding Method Indwelling Catheter Toilet Toilet # Voids 1 - Exam GENERAL: The patient is alert and oriented x3, not in any acute distress. Well developed, well nourished. HEENT: Pupils are round and equally reacting to light. EOMI. No scleral icterus. No conjunctival pallor. Normocephalic, atraumatic. No pharyngeal erythema. No thyromegaly. CARDIOVASCULAR: S1 and S2 present. No murmurs, rubs, or gallops. PULMONARY: Chest is clear to auscultation, no wheezing or crackles. -ABDOMEN: Soft, RLQ tenderness with no rebound tenderness or guarding, nondistended, normoactive bowel sounds. No palpable organomegaly. MUSCULOSKELETAL: No joint swelling or deformity. EXTREMITIES: No cyanosis, clubbing, or pedal edema. NEUROLOGICAL: Gross neurological examination did not reveal any focal deficits. SKIN: No rashes. no petechiae. - Labs CBC & Chem 7: 05/10/21 08:39 05/10/21 08:39 Labs: Abnormal Lab Results - Last 24 Hours (Table) 05/09/21 05/09/21 05/10/21 Range/Units 16:04 16:04 08:39 WBC 12.6 H 13.3 H (3.8-10.6) k/uL Neutrophils # 8.7 H 10.0 H (1.3-7.7) k/uL Potassium 3.2 L (3.5-5.1) mmol/L Chloride 112 H (98-107) mmol/L BUN 21 H (7-17) mg/dL Glucose 103 H (74-99) mg/dL 05/10/21 Range/Units 08:39 WBC (3.8-10.6) k/uL Neutrophils # (1.3-7.7) k/uL Potassium 3.1 L (3.5-5.1) mmol/L Chloride 109 H (98-107) mmol/L BUN 20 H (7-17) mg/dL Glucose (74-99) mg/dL Assessment and Plan Assessment: Right lower quadrant abdominal pain and groin pain. Mostly related to constipation. Also could be related to nonobstructing renal calculi and possible arterial aneurysm as below. Status post [place] embolization of the right iliac artery aneurysm Constipation Postoperative fever Large abdominal aortic aneurysm 4.6 cm and extending up to 7.4 cm with suspected intramural hematoma. Status post percutaneous endovascular surgical repair Left-sided obstructing 3 mm renal calculi with hydronephrosis . Elevated blood pressure on admission likely due to pain. Patient treatment with acute urinary tract infection History of back surgery Anxiety Osteoarthritis Plan: This is a pleasant 71 years old female who presents with abdominal pain in the right lower quadrant area Continue with metoprolol at 25 mg twice a day, Norvasc 5 mg daily and hydralazine 25 twice a day and monitor blood pressure. Vascular surgery in detail and patient was started on aspirin 81 mg and Lipitor. Check chest x-ray, urinalysis and infectious disease consult and monitor blood cell count and if patient develops fever Vascular surgery follow closely. Status post angiogram showing aneurysm of the aorta and right iliac artery. Pending further recommendation by vascular team Urologist team and general surgery team cleared the patient for discharge of their perspective Pain management Patient is undergoing surgical procedure for aneurysm repair with vascular surgery team Labs and medication were reviewed.. Continue same treatment. Continue with s ymptomatic treatment. Resume home medication. Monitor lytes and vitals. DVT and GI prophylaxis. Further recommendations as per clinical course of the patient DVT prophylaxis: Subcutaneous heparin GI Prophylaxis: Pepcid
[2021-05-10] MEDS: POTASSIUM CHLORIDE ER 20 MEQ TAB.ER PO SCH ×2 (12:16→14:37)
--- NOTE | 2021-05-10 12:41 | XR ---
EXAMINATION TYPE: XR chest 1V DATE OF EXAM: 05/10/2021 COMPARISON: NONE HISTORY: Fever TECHNIQUE: Single frontal view of the chest is obtained. FINDINGS: There is no focal air space opacity, pleural effusion, or pneumothorax seen. The cardiac silhouette size is within normal limits. The osseous structures are intact. Hyperinflation suggests COPD. Arthropathy of the shoulders. Vascular stent is seen in the abdomen likely related to the aort a and there is a curvature of the spine. Chronic appearing deformity of the left clavicle. IMPRESSION: No acute process.
[2021-05-10] MEDS: ACETAMINOPHEN TAB 325 MG TAB PO PRN (21:05)
[2021-05-10] MEDS: busPIRone HCl 5 MG TAB PO PRN (21:06)
[2021-05-10 21:28] LABS: Appearance,Urine Clear (Clear); Bilirubin,Urine Negative (Negative); Blood,Urine Negative (Negative); Color,Urine Yellow; Glucose,Urine (UA) Negative (Negative); Ketones,Urine Negative (Negative); Leukocyte Esterase,Urine Negative (Negative); Nitrite,Urine Negative (Negative); Protein,Urine Negative (Negative); Specific Gravity,Urine 1.013 (1.001-1.035); Urobilinogen,Urine <2.0 mg/dL (<2.0)
--- NOTE | 2021-05-10 23:20 | P.CONS ---
History of Present Illness - Reason for Consult Consult date: 05/10/21 Postop fever Requesting physician: Dino E Joselin - Chief Complaint abd pain x few days - History of Present Illness Patient is a 71-year female presented to the hospital more than a week ago on 05/01/2021 for evaluation of abdominal pain in this patient pain has been going on for about 3 weeks patient was diagnosed and treated for UTI in the outpatient setting without any improvement patient on presentation to the hospital did have a CT abdominal pelvis with shortness of ureteral stone and hydronephrosis for the patient has been evaluated by urology patient has been treated with Flomax and was urological procedure patient did have mildly positive UA on admission with a culture negative patient also noticed to have a abdominal aortic aneurysm for the patient has been evaluated by vascular surgery and the patient did have a vascular procedure completed on the to the left radial approach the patient did spike a fever 100.7 degrees for right last night and 100.3 earlier this morning that has prompted this infectious disease consultation, patient however denies having any fever rigors and chills patient overall is feeling better patient denies having any headache patient denies having any URI symptoms no chest pain shortness of breath or cough no abdominal pain no diarrhea no burning or frequency of urine, patient did have a repeat UA completed today which was negative chest x-ray was negative for acute pulmonary process Review of Systems CONSTITUTIONAL: Positive for weakness. Low-grade Fever EYES: No complaint. ENT:No complaint. RESPIRATORY: No complaint. CARDIOVASCULAR: No complaint. GENITOURINARY: No complaint. GASTROINTESTINAL: No complaint. MUSCULOSKELETAL: No complaint. INTEGUMENTARY: No complaint. PSYCHOLOGICAL: No complaint. ENDOCRINE: No complaint. NEUROLOGIC: No complaint. Past Medical History Past Medical History: Hyperlipidemia Additional Past Medical History / Comment(s): Chronic low back pain, UTIs, pelvi c fracture-healed, L kidney stone. History of Any Multi-Drug Resistant Organisms: None Reported Past Surgical History: Back Surgery, Hysterectomy, Tonsillectomy Additional Past Surgical History / Comment(s): D&Cs, L4-L5 back surgery/poonam, colonoscopies, hemorrhoidectomy Smoking Status: Current every day smoker - Past Family History Father Family Medical History: No Reported History Additional Family Medical History / Comment(s): Father was a smoker but healthy Mother Family Medical History: COPD Additional Family Medical History / Comment(s): Mother was a smoker. Medications and Allergies Home Medications Medication Instructions Recorded Confirmed Type Cholecalciferol [Vitamin D3 (25 100 mcg PO DAILY 05/01/21 05/01/21 History Mcg = 1000 Iu)] DULoxetine HCL [Cymbalta] 120 mg PO DAILY 05/01/21 05/01/21 History HYDROcodone/APAP 7.5-325MG [Wilson 1 tab PO QID 05/01/21 05/01/21 History 7.5-325] Meloxicam [Mobic] 7.5 - 15 mg PO DAILY PRN 05/01/21 05/01/21 History busPIRone HCL 15 mg PO BID PRN 05/01/21 05/01/21 History Tamsulosin [Flomax] 0.4 mg PO DAILY #30 cap 05/03/21 Rx Allergies Allergy/AdvReac Type Severity Reaction Status Date / Time No Known Allergies Allergy Verified 05/01/21 16:13 Physical Exam Vitals: Vital Signs Temp Pulse Pulse Pulse Resp BP BP 05/10/21 11:41 98.4 F 80 16 113/61 05/10/21 08:00 99.0 F 83 18 157/69 05/10/21 04:00 100.3 F H 91 18 126/66 05/10/21 02:00 86 86 18 05/10/21 00:00 100.7 F H 86 18 118/78 05/09/21 20:00 100.1 F H 81 86 18 111/57 05/09/21 17:42 86 18 05/09/21 17:11 86 18 129/67 05/09/21 16:20 80 16 127/61 05/09/21 15:45 78 16 111/55 153/46 05/09/21 15:25 76 16 116/56 152/45 05/09/21 15:10 76 18 120/56 146/56 05/09/21 14:55 97.0 F L 79 18 127/43 147/76 Pulse Ox 05/10/21 11:41 93 L 05/10/21 08:00 93 L 05/10/21 04:00 93 L 05/10/21 02:00 05/10/21 00:00 92 L 05/09/21 20:00 92 L 05/09/21 17:42 05/09/21 17:11 93 L 02/22/22 16:20 95 05/09/21 15:45 99 05/09/21 15:25 98 05/09/21 15:10 97 05/09/21 14:55 96 Intake and Output 05/09/21 05/10/21 05/10/21 22:59 06:59 14:59 Intake Total 240 Output Total 680 1000 Balance -440 -1000 Intake: Oral 240 Output: Urine 680 1000 Uretheral (Rodríguez) 500 Other: Voiding Method Indwelling Catheter Toilet Toilet # Voids 1 GENERAL DESCRIPTION: An elderly female lying in bed, no distress. No tachypnea or accessory muscle of respiration use. HEENT: Shows Pallor , no scleral icterus. Oral mucous membrane is dry. No pharyngeal erythema or thrush NECK: Trachea central, no thyromegaly. LUNGS: Unlabored breathing. Clear to auscultation anteriorly. No wheeze or crackle. HEART: S1, S2, regular rate and rhythm. No loud murmur ABDOMEN: Soft, no tenderness , guarding or rigidity, no organomegaly EXTREMITIES: No edema of feet. SKIN: No rash, no masses palpable. NEUROLOGICAL: The patient is awake, alert, oriented x3, mood and affect normal. Results CBC & Chem 7: 05/10/21 08:39 05/10/21 08:39 Labs: Abnormal Lab Results - Last 24 Hours (Table) 05/09/21 05/09/21 05/10/21 Range/Units 16:04 16:04 08:39 WBC 12.6 H 13.3 H (3.8-10.6) k/uL Neutrophils # 8.7 H 10.0 H (1.3-7.7) k/uL Potassium 3.2 L (3.5-5.1) mmol/L Chloride 112 H (98-107) mmol/L BUN 21 H (7-17) mg/dL Glucose 103 H (74-99) mg/dL 05/10/21 Range/Units 08:39 WBC (3.8-10.6) k/uL Neutrophils # (1.3-7.7) k/uL Potassium 3.1 L (3.5-5.1) mmol/L Chloride 109 H (98-107) mmol/L BUN 20 H (7-17) mg/dL Glucose (74-99) mg/dL Assessment and Plan (1) Fever Current Visit: Yes Status: Acute Code(s): R50.9 - FEVER, UNSPECIFIED SNOMED Code(s): 943581109 Plan: 1-patient with a low-grade fever 100.7 and this patient did have multiple comorbidities with abdominal aortic aneurysm in this patient who is status post vascular procedure completed the day before the patient did have a fever however patient currently do not have any symptoms to the left wrist IV access site, patient did have a left-sided hydronephrosis on this admission did have mildly positive UA on admission repeat UA is negative and the patient did not have any urinary symptoms chest x-ray is negative abdominal soft medical examination no obvious infectious focus for this low-grade fever questionably reactive to recent surgical procedure. 2we will obtain blood cultures CRP and procalcitonin, We will monitor the patient closely off antibiotic therapy at this point as obvious focus of infection We will follow on clinical condition and cultures to further adjust medication if needed Thank you for this consultation will follow this patient along with you Time with Patient: Greater than 30
[2021-05-11] MEDS: CHOLECALCIFEROL 25 MCG (1000 IU) TABLET PO SCH (08:23)
[2021-05-11] MEDS: DULoxetine HCL 60 MG CAPSULE.DR PO SCH (08:23)
[2021-05-11] MEDS: DOCUSATE 100 MG CAP PO SCH ×2 (08:23→20:23)
[2021-05-11] MEDS: HEPARIN SODIUM,PORCINE/PF 5,000 UNIT/0.5 ML SYRINGE SQ SCH ×2 (08:23→20:23)
[2021-05-11] MEDS: TAMSULOSIN 0.4 MG CAP.ER.24H PO SCH (08:24)
[2021-05-11] MEDS: ATORVASTATIN 40 MG TAB PO SCH (08:24)
[2021-05-11] MEDS: hydrALAZINE HCL 25 MG TAB PO SCH ×2 (08:24→20:23)
[2021-05-11] MEDS: ASPIRIN 81 MG PO SCH (08:24)
[2021-05-11] MEDS: METOPROLOL TARTRATE 25 MG TAB PO SCH ×2 (08:24→20:23)
[2021-05-11] MEDS: amLODIPine 5 MG TAB PO SCH (08:24)
[2021-05-11] MEDS: FAMOTIDINE 20 MG TAB PO SCH (08:24)
[2021-05-11] MEDS: HYDROcodone/APAP 7.5-325MG 1 EACH TAB PO PRN ×3 (08:25→20:21)
[2021-05-11] MEDS: NICOTINE 21MG/24HR PATCH TRANSDERM SCH (08:37)
--- NOTE | 2021-05-11 10:07 | P.PN ---
Subjective Progress Note Date: 05/11/21 Patient is seen and examined sitting up in bed. She is postop day #2 for percutaneous endovascular aortic repair with Walden excluder, selective right internal iliac artery angiogram, right internal iliac artery coil embolization, percutaneous closure of bilateral femoral arteries. She states abdominal pain and back pain are improving. She denies any chest pain, shortness of breath, pain down her lower extremities, nausea, vomiting, fevers or chills. Positive bowel movement. She has been up and ambulating. She did have a low-grade temp max of 100.3 the night after surgery. She's been afebrile since then. Apparently infectious disease was consulted and blood cultures were ordered. Those are pending currently. Objective - Vital Signs Vital signs: Vital Signs Temp 99.5 F 05/11/21 08:20 Pulse 88 05/11/21 08:20 Resp 16 05/11/21 08:20 BP 139/87 05/11/21 08:20 Pulse Ox 96 05/11/21 08:20 Intake & Output 05/10/21 05/11/21 05/11/21 18:59 06:59 18:59 Intake Total 240 Output Total 400 Balance -400 240 Intake: Oral 240 Output: Urine 400 Other: Voiding Method Toilet Toilet Toilet # Voids 1 1 - Exam General appearance: The patient is alert, oriented, appears in no acute distress. HET: Head is normocephalic and atraumatic. Neck: Supple without lymphadenopathy. Trachea midline. Heart: S1 S2. Regular rate and rhythm. Lungs: Clear to auscultation bilaterally. Abdomen: Soft, nontender, nondistended. Extremities: Normal skin color and turgor. No cyanosis, rash, ulceration, clubbing, or edema. Dressings to bilateral groin puncture sites removed. No hematoma noted. They are well approximated without any drainage. Neurological: No focal deficits. Strength and sensation are grossly intact. - Labs CBC & Chem 7: 05/10/21 08:39 05/10/21 08:39 Labs: Abnormal Lab Results - Last 24 Hours (Table) 05/10/21 Range/Units 13:58 C-Reactive Protein 6.9 H (<1.0) mg/dL Assessment and Plan Assessment: 1. Postop day #2 endovascular aortic repair with core exclude or, selective right internal iliac artery angiogram, right internal iliac artery coil embolization, with percutaneous closure of bilateral femoral arteries 2. Infrarenal 4.6 cm abdominal aortic aneurysm 3. 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 Current smoker Plan: 1. Continue symptomatic and supportive care 2. Continue to use incentive spirometer 3. Encourage ambulation 4. Smoking cessation 5. Continue medical management The patient is cleared for discharge from vascular surgery. To follow-up with Dr. Alexander 7-14 days. The impression and plan of care has been dictated as directed. Dr. Alexander I performed a history and examination of this patient, discussed the same with the dictator. I agree with the dictator's note ,documented as a scribe. Any additional findings or plans will be noted.
[2021-05-11] MEDS: ACETAMINOPHEN TAB 325 MG TAB PO PRN (12:57)
[2021-05-11 13:02] LABS: African American GFR (CKD) >90 (>60 ml/min/1.73 sqM); Anion Gap 6 mmol/L; Blood Urea Nitrogen 20 mg/dL (7-17); Carbon Dioxide 26 mmol/L (22-30); Chloride 104 mmol/L (98-107); Glucose 149 mg/dL (74-99); Magnesium 1.7 mg/dL (1.6-2.3); Non-African American GFR(CKD) >90 (>60 ml/min/1.73 sqM); Sodium 136 mmol/L (137-145)
[2021-05-11] MEDS ORDERED: Potassium Replacement Protocol 1 EACH MISC MISCELLANE PRN (13:05)
[2021-05-11] MEDS: POTASSIUM CHLORIDE ER 20 MEQ TAB.ER PO SCH ×2 (13:19→19:31)
[2021-05-11] MEDS ORDERED: MAGNESIUM SULFATE-D5W PMX 1 GM in DEXTROSE/WATER 1 100ML.BAG IVPB ONE (14:30)
--- NOTE | 2021-05-11 14:45 | P.PN ---
Subjective Progress Note Date: 05/11/21 CHIEF COMPLAINT: Abdominal pain HISTORY OF PRESENT ILLNESS: Patient denies abdominal pain. She has some tenderness at her incision sites from her vascular surgery. Last 2 days ago. She is having flatus. Appetite is increasing. Tolerating diet. Afebrile days since her 0.0 on being placed Patient seen and examined with Dr. harkins PHYSICAL EXAM: VITAL SIGNS: Reviewed. GENERAL: Well-developed in no acute distress. HEENT: No sclera icterus. Extraocular movements grossly intact. Moist buccal mucosa. Head is atraumatic, normocephalic. ABDOMEN: Soft. Nondistended. NEUROLOGIC: Alert and oriented. Cranial nerves II through XII grossly intact. ASSESSMENT: 1. Abdominal pain resolved 2. Constipation PLAN: -Continue current bowel regimen -Continue supportive care -No surgical intervention planned -Patient is stable from surgical standpoint for discharge when medically cleared Physician Checker Loader note has been reviewed by physician. Signing provider agrees with the documented findings, assessment, and plan of care. Objective - Vital Signs Vital signs: Vital Signs Temp 98.1 F 05/11/21 12:53 Pulse 85 05/11/21 12:53 Resp 17 05/11/21 12:53 BP 106/56 05/11/21 12:53 Pulse Ox 95 05/11/21 12:53 Intake & Output 05/10/21 05/11/21 05/11/21 18:59 06:59 18:59 Intake Total 780 Output Total 400 600 Balance -400 180 Intake: Oral 780 Output: Urine 400 600 Other: Voiding Method Toilet Toilet Toilet # Voids 1 1 - Labs CBC & Chem 7: 05/10/21 08:39 05/11/21 12:24 Labs: Abnormal Lab Results - Last 24 Hours (Table) 05/10/21 05/11/21 Range/Units 13:58 12:24 Sodium 136 L (137-145) mmol/L Potassium 3.0 L (3.5-5.1) mmol/L BUN 20 H (7-17) mg/dL Creatinine 0.50 L (0.52-1.04) mg/dL Glucose 149 H (74-99) mg/dL C-Reactive Protein 6.9 H (<1.0) mg/dL
[2021-05-11 15:18] LABS: Magnesium 1.7 mg/dL (1.6-2.3)
[2021-05-11 18:47] LABS: Magnesium 2.3 mg/dL (1.6-2.3); Potassium 3.3 mmol/L (3.5-5.1)
--- NOTE | 2021-05-11 21:38 | P.PN ---
Subjective Patient is a 71-year-old female with a known history of back surgery and prior history of smoking and anxiety presents to ER with complaints of right lower quadrant abdominal pain. Patient states that she has been having symptoms for the past 3 weeks and was seen by her physician. Her urinalysis as an outpatient showed blood in the urine and was treated for urinary tract infection with antibiotics which she took for 7 days.. Patient did not improve symptomatically and due to worsening pain patient presents to ER. Patient states her pain is mainly in the right lower quadrant and groin region and going down to the right upper thigh region and towards the back. Denies any shortness of breath. Denies any pain in the legs with walking. No fever no chills. No cough or sputum production. Denies any dysuria or hematuria. No lightheadedness or dizziness. No prior history of abdominal surgery. CT of abdominal pelvis showed 3 mm obstructing stone within the pelvic portion of the left ureter causing moderate left-sided hydronephrosis and hydronephrosis likely chronic. Bilateral nonobstructing renal calculi. No right-sided hydroureter or hydro nephrosis. Abdominal aortic and right common iliac aneurysms. Vascular surgery was consulted from the ER and CT of the thoracic aorta was done showed extensive atherosclerotic changes. Large abdominal aortic aneurysm is suspected intramural hematoma. No periaortic hematoma or collection with no extr avasation of injected IV contrast. Reduced enhancement of the right common iliac artery with a large aneurysm at its bifurcation likely thrombosed and due to lack of enhancement. Laboratory showed WBC 10.6 hemoglobin 15.9 and platelets 227 BUN 24 and creatinine 0.62 Urinalysis showed trace leukoesterase clear with nitrite negative and WBC is 11. Subjective: I am resume the care of the patient on 05/03/2021 This is a pleasant 71 years old female who presents with right lower quadrant abdominal pain and tenderness and sometimes even into the right groin, with no history of fall or trauma, and while she was also using [place] for her back pain. She denies nausea vomiting or diarrhea. No dysuria or urgency, no vaginal discharge or bleeding. She is alert awake and oriented 3 and her gait is normal. 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 Vascular surgery they recommended outpatient follow-up with their office tomorrow as she has already an appointment however not sure if patient will be cleared for discharge prior to that. Gen. surgery consulted looks like patient has abdominal pain and her colon is filled with stool indicating constipation, patient was started on Colace and senna. Urologist also consulted for her kidney stones and hydroureter/hydronephrosis of the left side however she does not complain of from left side abdominal pain or flank pain. 05/04/2021 Patient still complaining right lower quadrant abdominal pain and tenderness with no rebound tenderness, no significant distress due to pain. She is having frequent bowel movements regarding her constipation and Gen. surgery on the case recommended conservative management. Also urologist recommended adding Flomax and follow-up as an outpatient, with no indication for current surgical intervention. Still vascular surgery seeing the patient and decide about plan of care. Her appointment with Dr. Carter is rescheduled for next week. See discharge instructions. Also discontinue Dilaudid and continue with home dose of [place] Possible discharge in 24-48 hours if she keeps improving and cleared by consultants 05/05/2021 Patient with right lower quadrant abdominal pain and mild tenderness. Her blood pressure still elevated despite starting metoprolol 50 mg twice daily, her pressure today went up to 185/106 and 193/118. We started Norvasc 5 mg twice a day and hydralazine 25 mg twice a day and the blood pressure improved to 163/80. Discussed with vascular surgery team the options to the patient go home and follow up with Dr. Gaviria on this, or stay on same treatment till Saturday in the hospital for coiling procedure for her right internal iliac artery thrombosed aneurysm. I discussed options with the patient's, she doesn't feel she is ready to go home today. We'll keep monitoring her blood pressure closely Urologist and general surgery team the following the patient's with no further workup or treatment options. Patient having several bowel movements and she does not think constipation is the main a problem for her. Also with no urinary complaints 05/06/2021 Patient states improvement in her right lower quadrant abdominal pain today down to 7/10 and she is happy about this improvement, no other GI complaints. Her blood pressure is better controlled today, this morning it was 142/84 I informed the patient with recommendation of vascular surgery team to go home and do follow-up with Dr. Carter on this coming for procedure she still does not feel comfortable going home, she feels anxious and she she wants to stay until Saturday. Especially she got more anxious when she heard that her is admitted to the hospital. We'll keep monitoring for now. 05/07/2021 Patient of LQ abdominal pain and an tenderness improving 7/sent down to 5/10 today. She does not have bowel movement today. Her blood pressure dropped down to 96/59 and heart rate was 52 and once went down to 63 therefore we gave a bolus of normal saline at 500 mL per hour and started normal saline 75 mL/h, we discontinued hydralazine, held Norvasc tonight and lower the dose of metoprolol 50 down to 25 mg with holding parameters. is scheduled for surgical procedure for her right internal iliac artery aneurysm. 05/08/2021 Patient still complaining from right lower quadrant abdominal pain 8/10 Patient evaluated by vascular surgery and Patient today underwent aortogram with selective right internal iliac artery angiogram: Showing infrarenal aortic aneurysm with calcification + common iliac artery is ectatic and right internal iliac artery is aneurysmal without any outflow. Vascular surgery, to keep monitoring the patient for now Blood pressure is still elevated therefore we added hydralazine 25 twice a day and lowered Norvasc to 5 mg daily. Continue with metoprolol 25 twice a day. Creatinine normal 0.6 05/09/2021 Patient today he underwent endovascular aneurysm repair with coiling of right internal iliac artery. Full surgery/procedure report is pending. After the procedure patient was transferred to select unit for more close monitoring. She is hemodynamically stable she is saturation 99% on 8 L oxygen via nasal cannula Labs including CBC, and BMP are unremarkable except for mild leukocytosis at 12.6 which is most likely reactive. Patient blood pressure is currently well controlled on regimen of amiodarone 5 mg, hydralazine 25 twice a day and metoprolol 25 twice a day 05/10/2021 Patient is a status post percutaneous endovascular aortic repair and right internal iliac artery coil embolization with vascular surgery team. Today is postoperative day #1. Patient awake alert. Some persistent right lower quadrant abdominal pain and tenderness, no chest pain or dyspnea or coughing. No urinary symptoms or diarrhea. However patient developed postop fever of 100.7 today. She has persistent leukocytosis 15.3. She remains on baby aspirin added yesterday at 81 mg daily as well as Lipitor by vascular surgery team. Patient generally doing well. We will repeat chest x-ray and urine analysis in view of fever. Also consult infectious disease team. 05/11/2021 Patient's still has some right lower quadrant abdominal pain and tenderness, however it's is improving and she was cleared today by general surgery and vascular surgery for discharge, She is hemodynamically stable Low potassium and magnesium and replace unmonitored She had a fever yesterday and been monitored, blood culture requested which is pending now. We will monitor for another 24 hours to assure patient is without fever Possible discharge in 24-48 hours once cleared by infectious disease team to go home. Objective - Vital Signs Vital signs: Vital Signs Temp 99.5 F 05/11/21 08:20 Pulse 88 05/11/21 08:20 Resp 16 05/11/21 08:20 BP 139/87 05/11/21 08:20 Pulse Ox 96 05/11/21 08:20 Intake & Output 05/10/21 05/11/21 05/11/21 18:59 06:59 18:59 Intake Total 240 Output Total 400 Balance -400 240 Intake: Oral 240 Output: Urine 400 Other: Voiding Method Toilet Toilet Toilet # Voids 1 1 - Exam GENERAL: The patient is alert and oriented x3, not in any acute distress. Well developed, well nourished. HEENT: Pupils are round and equally reacting to light. EOMI. No scleral icterus. No conjunctival pallor. Normocephalic, atraumatic. No pharyngeal erythema. No thyromegaly. CARDIOVASCULAR: S1 and S2 present. No murmurs, rubs, or gallops. PULMONARY: Chest is clear to auscultation, no wheezing or crackles. -ABDOMEN: Soft, RLQ tenderness with no rebound tenderness or guarding, nondistended, normoactive bowel sounds. No palpable organomegaly. MUSCULOSKELETAL: No joint swelling or deformity. EXTREMITIES: No cyanosis, clubbing, or pedal edema. NEUROLOGICAL: Gross neurological examination did not reveal any focal deficits. SKIN: No rashes. no petechiae. - Labs CBC & Chem 7: 05/10/21 08:39 05/11/21 17:07 Labs: Abnormal Lab Results - Last 24 Hours (Table) 05/10/21 Range/Units 13:58 C-Reactive Protein 6.9 H (<1.0) mg/dL Assessment and Plan Assessment: Right lower quadrant abdominal pain and groin pain. Mostly related to constipation. Also could be related to nonobstructing renal calculi and possib le arterial aneurysm as below. Status post Gonzalez embolization of the right iliac artery aneurysm Constipation Postoperative fever Large abdominal aortic aneurysm 4.6 cm and extending up to 7.4 cm with suspected intramural hematoma. Status post percutaneous endovascular surgical repair Left-sided obstructing 3 mm renal calculi with hydronephrosis . Elevated blood pressure on admission likely due to pain. Patient treatment with acute urinary tract infection History of back surgery Anxiety Osteoarthritis Plan: This is a pleasant 71 years old female who presents with abdominal pain in the right lower quadrant area Continue with metoprolol at 25 mg twice a day, Norvasc 5 mg daily and hydralazine 25 twice a day and monitor blood pressure. Vascular surgery started patient on aspirin 81 mg and Lipitor. Patient was cleared for discharge by vascular surgery, general surgery and urologist Blood culture are still pending, patient off antibiotics. She will be monitored for another 24 hours. She will be discharge once cleared by infectious disease team Labs and medication were reviewed.. Continue same treatment. Continue with symptomatic treatment. Resume home medication. Monitor lytes and vitals. DVT and GI prophylaxis. Further recommendations as per clinical course of the patient DVT prophylaxis: Subcutaneous heparin GI Prophylaxis: Pepcid
[2021-05-12] MEDS: HYDROcodone/APAP 7.5-325MG 1 EACH TAB PO PRN ×2 (05:41→12:52)
[2021-05-12] MEDS ORDERED: POTASSIUM CHLORIDE ER 20 MEQ TAB.ER PO STA (08:55)
[2021-05-12 08:56] VITALS: RESP 17
[2021-05-12] MEDS: DULoxetine HCL 60 MG CAPSULE.DR PO SCH (08:57)
[2021-05-12] MEDS: TAMSULOSIN 0.4 MG CAP.ER.24H PO SCH (08:57)
[2021-05-12] MEDS: HEPARIN SODIUM,PORCINE/PF 5,000 UNIT/0.5 ML SYRINGE SQ SCH (08:57)
[2021-05-12] MEDS: ATORVASTATIN 40 MG TAB PO SCH (08:57)
[2021-05-12] MEDS: hydrALAZINE HCL 25 MG TAB PO SCH (08:57)
[2021-05-12] MEDS: ASPIRIN 81 MG PO SCH (08:58)
[2021-05-12] MEDS: METOPROLOL TARTRATE 25 MG TAB PO SCH (08:58)
[2021-05-12] MEDS: DOCUSATE 100 MG CAP PO SCH (08:58)
[2021-05-12] MEDS: CHOLECALCIFEROL 25 MCG (1000 IU) TABLET PO SCH (08:58)
[2021-05-12] MEDS: NICOTINE 21MG/24HR PATCH TRANSDERM SCH (08:58)
[2021-05-12] MEDS: amLODIPine 5 MG TAB PO SCH (08:58)
[2021-05-12] MEDS: FAMOTIDINE 20 MG TAB PO SCH (08:58)
--- NOTE | 2021-05-12 09:09 | P.PN ---
Subjective Progress Note Date: 05/12/21 Patient is seen and examined sitting up in bed. She is postop day #3 for percutaneous endovascular aortic repair with Hemphill excluder, selective right internal iliac artery angiogram, right internal iliac artery coil embolization, percutaneous closure of bilateral femoral arteries. She states abdominal pain and back pain due to improved. She denies any chest pain, shortness of breath, pain down her lower extremities, nausea, vomiting, fevers or chills. Positive bowel movement. She has been up and ambulating. Blood cultures are pending. Patient discharge was held yesterday for hypokalemia. Potassium was replaced with a repeat today of 3.9 Objective - Vital Signs Vital signs: Vital Signs Temp 97.9 F 05/12/21 08:56 Pulse 86 05/12/21 08:56 Resp 17 05/12/21 08:56 BP 134/75 05/12/21 08:56 Pulse Ox 96 05/12/21 08:56 Intake & Output 05/11/21 05/12/21 05/12/21 18:59 06:59 18:59 Intake Total 900 Output Total 600 Balance 300 Intake: Oral 900 Output: Urine 600 Other: Voiding Method Toilet Toilet # Voids 1 1 - Exam General appearance: The patient is alert, oriented, appears in no acute distress. HET: Head is normocephalic and atraumatic. Neck: Supple without lymphadenopathy. Trachea midline. Heart: S1 S2. Regular rate and rhythm. Lungs: Clear to auscultation bilaterally. Abdomen: Soft, nontender, nondistended. Extremities: Normal skin color and turgor. No cyanosis, rash, ulceration, clubbing, or edema. Dressings to bilateral groin puncture sites removed. No hematoma noted. They are well approximated without any drainage. Neurological: No focal deficits. Strength and sensation are grossly intact. - Labs CBC & Chem 7: 05/10/21 08:39 05/11/21 23:24 Labs: Abnormal Lab Results - Last 24 Hours (Table) 05/11/21 05/11/21 05/11/21 Range/Units 12:24 14:56 17:07 Sodium 136 L (137-145) mmol/L Potassium 3.0 L 3.0 L 3.3 L (3.5-5.1) mmol/L BUN 20 H (7-17) mg/dL Creatinine 0.50 L (0.52-1.04) mg/dL Glucose 149 H (74-99) mg/dL Microbiology - Last 24 Hours (Table) 05/10/21 13:58 Blood Culture - Preliminary Blood No Growth after 24 hours Assessment and Plan Assessment: 1. Postop day #3 endovascular aortic repair with core exclude or, selective right internal iliac artery angiogram, right internal iliac artery coil embolization, with percutaneous closure of bilateral femoral arteries 2. Infrarenal 4.6 cm abdominal aortic aneurysm 3. 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 Current smoker Plan: 1. Continue symptomatic and supportive care 2. Continue to use incentive spirometer 3. Encourage ambulation 4. Smoking cessation 5. Continue medical management The patient is cleared for discharge from vascular surgery. To follow-up with Dr. Alexander 7-14 days. The impression and plan of care has been dictated as directed. Dr. Alexander I performed a history and examination of this patient, discussed the same with the dictator. I agree with the dictator's note ,documented as a scribe. Any additional findings or plans will be noted.
--- NOTE | 2021-05-12 09:47 | P.PN ---
Subjective Progress Note Date: 05/11/21 Principal diagnosis: Postop fever Patient is a 71 female presenting to the hospital about a week ago for evaluation of abdominal pain CT abdominal pelvis with ureter stone currently on Flomax also have percutaneous endovascular aortic repair, patient did have a low-grade fever postoperatively that has prompted this infection disease consultation. On today's evaluation that is 05/11/2021, the patient denies having any fever or any chills, the patient is breathing comfortably on room he denies having any chest pain shortness of breath or cough no abdominal pain has resolved no nausea no vomiting no diarrhea and no urinary symptoms Objective - Vital Signs Vital signs: Vital Signs Temp 98.1 F 05/11/21 12:53 Pulse 85 05/11/21 12:53 Resp 17 05/11/21 12:53 BP 106/56 05/11/21 12:53 Pulse Ox 95 05/11/21 12:53 Intake & Output 05/10/21 05/11/21 05/11/21 18:59 06:59 18:59 Intake Total 780 Output Total 400 600 Balance -400 180 Intake: Oral 780 Output: Urine 400 600 Other: Voiding Method Toilet Toilet Toilet # Voids 1 1 - Exam SheGENERAL DESCRIPTION: An elderly female lying in bed in no distress RESPIRATORY SYSTEM: Unlabored breathing , decreased breath sounds at bases HEART: S1 S2 regular rate and rhythm , ABDOMEN: Soft , no tenderness EXTREMITIES: No edema feet - Labs CBC & Chem 7: 05/10/21 08:39 05/11/21 23:24 Labs: Abnormal Lab Results - Last 24 Hours (Table) 05/10/21 05/11/21 Range/Units 13:58 12:24 Sodium 136 L (137-145) mmol/L Potassium 3.0 L (3.5-5.1) mmol/L BUN 20 H (7-17) mg/dL Creatinine 0.50 L (0.52-1.04) mg/dL Glucose 149 H (74-99) mg/dL C-Reactive Protein 6.9 H (<1.0) mg/dL Assessment and Plan (1) Fever Current Visit: Yes Status: Acute Code(s): R50.9 - FEVER, UNSPECIFIED SNOMED Code(s): 658657198 Plan: 1-patient with a low-grade fever 100.7 and this patient did have multiple comorbidities with abdominal aortic aneurysm in this patient who is status post vascular procedure completed the day before the patient did have a fever however patient currently do not have any symptoms to the left wrist IV access site, patient did have a left-sided hydronephrosis on this admission did have mildly positive UA on admission repeat UA is negative and the patient did not have any urinary symptoms chest x-ray is negative abdominal soft medical examination no obvious infectious focus for this low-grade fever questionably reactive to recent surgical procedure. 2 patient has been advised incentive spirometry patient fever has resolved without antibiotic therapy and will continue to monitor the patient closely off antibiotics Time with Patient: Less than 30
[2021-05-12 12:51] VITALS: BP 133/75; PULSE 85; TEMP 98.8
--- NOTE | 2021-05-12 13:12 | P.PN ---
Subjective Progress Note Date: 05/12/21 CHIEF COMPLAINT: Abdominal pain HISTORY OF PRESENT ILLNESS: Patient denies abdominal pain. She has some tenderness at her incision sites from her vascular surgery that is improving. Patient seen and examined with Dr. harkins PHYSICAL EXAM: VITAL SIGNS: Reviewed. GENERAL: Well-developed in no acute distress. HEENT: No sclera icterus. Extraocular movements grossly intact. Moist buccal mucosa. Head is atraumatic, normocephalic. ABDOMEN: Soft. Nondistended. NEUROLOGIC: Alert and oriented. Cranial nerves II through XII grossly intact. ASSESSMENT: 1. Abdominal pain resolved 2. Constipation resolved PLAN: -Continue a good bowel regimen -Continue supportive care -No surgical intervention planned -Patient is stable from surgical standpoint for discharge when medically cleared Physician Sql Database Administrator note has been reviewed by physician. Signing provider agrees with the documented findings, assessment, and plan of care. Objective - Vital Signs Vital signs: Vital Signs Temp 98.8 F 05/12/21 12:00 Pulse 85 05/12/21 12:00 Resp 17 05/12/21 12:00 BP 133/75 05/12/21 12:00 Pulse Ox 96 05/12/21 12:00 Intake & Output 05/11/21 05/12/21 05/12/21 18:59 06:59 18:59 Intake Total 900 450 Output Total 600 Balance 300 450 Intake: Oral 900 450 Output: Urine 600 Other: Voiding Method Toilet Toilet Toilet # Voids 1 1 1 - Labs CBC & Chem 7: 05/10/21 08:39 05/11/21 23:24 Labs: Abnormal Lab Results - Last 24 Hours (Table) 05/11/21 05/11/21 Range/Units 14:56 17:07 Potassium 3.0 L 3.3 L (3.5-5.1) mmol/L Microbiology - Last 24 Hours (Table) 05/10/21 13:58 Blood Culture - Preliminary Blood No Growth after 24 hours
== END 2021-05-12 15:18 | disposition home or self-care (01) | DRG 269 ==
LOC: EC 09:34 → 1SOBS 17:36 → 6NMEDSUR 05-02 01:20 → OBSVTOIN 05-02 11:36 → 6NMEDSUR 05-02 15:03 → 3SCARD 05-09 10:47
PROVIDERS: ADMIT Hospitalist; ATTEND Hospitalist
PROC: 04LE3DZ Occlusion of Right Internal Iliac Artery with Intraluminal Device, Percutaneous Approach (ICD-10-PCS; principal; 2021-05-08 14:00)
PROC: 04V03DZ Restriction of Abdominal Aorta with Intraluminal Device, Percutaneous Approach (ICD-10-PCS; principal; 2021-05-08 14:00)
PROC: B41D1ZZ Fluoroscopy of Aorta and Bilateral Lower Extremity Arteries using Low Osmolar Contrast (ICD-10-PCS; 2021-05-08 14:00)
PROC: B41C1ZZ Fluoroscopy of Pelvic Arteries using Low Osmolar Contrast (ICD-10-PCS; 2021-05-08 14:00)
DX: I71.4 Abdominal aortic aneurysm, without rupture (principal); N13.6 Pyonephrosis; N39.0 Urinary tract infection, site not specified; I72.3 Aneurysm of iliac artery; K59.09 Other constipation; M19.90 Unspecified osteoarthritis, unspecified site; N28.89 Other specified disorders of kidney and ureter; R50.82 Postprocedural fever; F17.210 Nicotine dependence, cigarettes, uncomplicated; E87.6 Hypokalemia; G89.29 Other chronic pain; M54.50 Low back pain, unspecified; F41.9 Anxiety disorder, unspecified; E78.5 Hyperlipidemia, unspecified; Z20.822 Contact with and (suspected) exposure to COVID-19; Z79.899 Other long term (current) drug therapy; Z82.5 Family history of asthma and other chronic lower respiratory diseases; Z87.440 Personal history of urinary (tract) infections; Z87.442 Personal history of urinary calculi; Z90.710 Acquired absence of both cervix and uterus; Z90.89 Acquired absence of other organs; Z79.1 Long term (current) use of non-steroidal anti-inflammatories (NSAID); Z79.891 Long term (current) use of opiate analgesic; Z87.81 Personal history of (healed) traumatic fracture; Z81.2 Family history of tobacco abuse and dependence; Z98.890 Other specified postprocedural states; Z71.6 Tobacco abuse counseling
CPT/HCPCS: 34705; 36247; 36415; 37242; 71045; 71275; 74174; 74176; 75625; 75710; 76937; 80048; 80053; 81001; 81003; 82150; 83605; 83690; 83735; 84132; 84145; 85025; 85652; 86140; 86850; 86900; 86901; 87040; 87086; 87635; 96374; 96375; 96376; 99285

== ENCOUNTER → 2021-06-26 | Outpatient (CLI) | payer MEDICARE ==
--- NOTE | 2021-06-26 16:54 | CT ---
EXAMINATION TYPE: CT angio chest DATE OF EXAM: 06/26/2021 COMPARISON: 05/01/2021 HISTORY: SOB, weakness stat hold and call CT DLP: 270 mGycm Automated exposure control for dose reduction was used. CONTRAST: Performed with IV Contrast, patient injected with 100 mL of Isovue 370. Images obtained from the thoracic inlet to the diaphragm with IV contrast. There are Three-D postproc essed images. There is interstitial infiltrate in the periphery of the lung love bilaterally. No pulmonary mass. There is no mediastinal adenopathy. There are no hilar masses. Thoracic aorta is atheromatous. The as cending aorta measures 3.6 cm. No dissection. There is normal contrast opacification of the pulmonary arteries. There are no filling defects. The thoracic vertebra is normal spacing and alignment. Posterior elements are intact. There is no com pression fracture. Sternum is intact. IMPRESSION: No evidence of pulmonary embolism. Mild peripheral pulmonary interstitial infiltrates could relate to some mild fibrosis. No significant change compared to 05/01/2021 exam.
== END | disposition home or self-care (01) ==
LOC: RADCTMAIN 15:18
PROVIDERS: ATTEND Family Medicine
DX: R91.8 Other nonspecific abnormal finding of lung field (principal)
CPT/HCPCS: 71275; Q9967

== ENCOUNTER 2021-07-27 05:52 | Day surgery (SDC) | payer MEDICARE ==
[2021-07-26 11:15] VITALS: BMI 18.8
[~2021-07-27 05:52] MED LIST: DEXAMETHASONE SOD PHOSPHATE 4 MG/ML 1 ML VIAL IV ONE; HYDROmorphone 0.5 MG/0.5 ML SYRINGE IVP PRN; LACTATED RINGERS 1,000 ML IV SCH; ONDANSETRON 4 MG/2 ML VIAL IVP ONE
--- NOTE | 2021-07-27 06:28 | XR ---
EXAMINATION TYPE: XR KUB DATE OF EXAM: 07/27/2021 COMPARISON: NONE HISTORY: Left ureteral calculus. TECHNIQUE: Single view FINDINGS: 2 images supine were obtained. There is aortoiliac endograft. There is fusion surgery at L4 -5 on the left side. There are calcifications over the left kidney. These measure up to 5 mm. There i s left-sided ureteral stent. There is vascular calcification. IMPRESSION: Left ureteral stent. Calculi over the left kidney noted. No acute bone gas pattern.
--- NOTE | 2021-07-27 06:37 | P.GSHP ---
History of Present Illness H&P Date: 07/27/21 Chief Complaint: Left hydronephrosis The patient is a 71-year-old white female hospitalized in April 2021 with right lower quadrant abdominal pain. CT scan revealed aneurysms of the abdominal aorta, right common iliac artery, right internal iliac artery. She underwent endovascular repair of the aneurysms. The CT scan also showed mild left hydronephrosis due to a 3 mm left distal ureteral calculus. Small bilateral renal calculi were seen, though some of these appeared to be depression though some of these renal calcifications appeared to be vascular in nature. She reported left-sided discomfort. She passed a calculus during the hospitalization and is now asymptomatic. However, a CT scan in 06/19/2021 showed moderate to severe left hydronephrosis due to a 4 mm mid to distal ureteral calculus. She has a history of hypertension, and her blood pressure became labile. She underwent cystoscopy, left retrograde pyelogram, and left ureteral stent insertion on 07/05/2021. She was found to have an obstructing left ureteral calculus just distal to the iliac vessels. She now comes for ureteroscopic removal of the calculus. - Constitutional Constitutional: Denies chills, Denies fever - Genitourinary (Female) Genitourinary: Reports as per HPI Past Medical History Past Medical History: COPD, GERD/Reflux, Hyperlipidemia, Hypertension, Mus culoskeletal Disorder Additional Past Medical History / Comment(s): Chronic low back pain, UTIs, pelvic fracture-healed, L kidney stone. Essential tremors. History of Any Multi-Drug Resistant Organisms: None Reported Past Surgical History: Back Surgery, Hysterectomy, Tonsillectomy Additional Past Surgical History / Comment(s): D&Cs, L4-L5 back surgery/poonam, colonoscopies, hemorrhoidectomy. 2 aneurysms, AAA & iliac, repaired. Ureteral stent 07/05/21. Past Anesthesia/Blood Transfusion Reactions: No Reported Reaction Smoking Status: Current every day smoker - Past Family History Father Family Medical History: No Reported History Additional Family Medical History / Comment(s): Father was a smoker but healthy Mother Family Medical History: COPD Additional Family Medical History / Comment(s): Mother was a smoker. Daughter(s) Family Medical History: Blood Disorder Additional Family Medical History / Comment(s): lupus anticoagulant syndrome Medications and Allergies Home Medications Medication Instructions Recorded Confirmed Type Cholecalciferol [Vitamin D3 (25 100 mcg PO DAILY 05/01/21 07/26/21 History Mcg = 1000 Iu)] DULoxetine HCL [Cymbalta] 120 mg PO DAILY 05/01/21 07/26/21 History HYDROcodone/APAP 7.5-325MG [[place] 1 tab PO QID PRN 05/01/21 07/26/21 History 7.5-325] Aspirin 81 mg PO DAILY #30 05/12/21 07/26/21 Rx Atorvastatin [Lipitor] 40 mg PO DAILY #30 tab 05/12/21 07/26/21 Rx Docusate [Colace] 100 mg PO BID PRN 5 Days #10 cap 05/12/21 07/26/21 Rx Sennosides [Senokot] 17.4 mg PO HS PRN 5 Days #10 tab 05/12/21 07/26/21 Rx Famotidine [Pepcid] 20 mg PO DAILY PRN 07/26/21 07/26/21 History Vitamin B12 (Unknown Dose) 1 tab PO DAILY 07/26/21 History amLODIPine BESYLATE 5 mg PO DAILY 07/26/21 07/26/21 History Allergies Allergy/AdvReac Type Severity Reaction Status Date / Time No Known Allergies Allergy Verified 07/26/21 10:46 Surgical - Exam - General well developed, well nourished, no distress - Respiratory normal respiratory effort - Abdomen Abdomen: soft, non tender, no guarding, no rigid, no rebound - Genitourinary normal external genitalia, normal perineum - Psychiatric oriented to time, oriented to person, oriented to place, speech is normal, memory intact Results - Imaging CT scan - abdomen: report reviewed, image reviewed Assessment and Plan (1) Calculus of ureter Current Visit: No Status: Acute Code(s): N20.1 - CALCULUS OF URETER SNOMED Code(s): 34051799 Plan: Cystoscopy, left ureteral stent removal, left ureteroscopy with Holmium laser lithotripsy and possible stone basketing. The patient is aware of potential risks, which include anesthesia, bleeding, infection, ureteral injury, and inability to successfully remove the calculus.
[2021-07-27] MEDS ORDERED: LABETALOL SYRINGE 5 MG/ML IVP ONE (07:05)
[2021-07-27] MEDS ORDERED: LABETALOL 5 MG/ML VIAL MDV ONE (07:45)
[2021-07-27] MEDS ORDERED: LIDOCAINE 2% INJ 20 MG/ML (2 ML VIAL) ONE (07:45)
[2021-07-27] MEDS ORDERED: PROPOFOL 10 MG/ML 20 ML VIAL IV ONE (07:45)
[2021-07-27] MEDS ORDERED: fentaNYL (PF) 50 MCG/ML 2 ML AMP ONE (07:45)
[2021-07-27] MEDS ORDERED: LACTATED RINGERS 1,000 ML IV ONE (08:35)
[2021-07-27 08:52] VITALS: TEMP 97.1
--- NOTE | 2021-07-27 09:02 | P.OP ---
Date of Procedure: 07/27/21 Preoperative Diagnosis: Left ureteral calculus Postoperative Diagnosis: Same Procedure(s) Performed: Cystoscopy, left ureteral stent removal, left ureteroscopy with Holmium laser lithotripsy and stone basketing Anesthesia: NOMI Surgeon: Pal Laws Estimated Blood Loss (ml): 5 IV fluids (ml): 1,000 Pathology: other (Calculus fragments, sent for chemical analysis) Condition: stable Disposition: PACU Indications for Procedure: The patient is a 71-year-old white female hospitalized in April 2021 with right lower quadrant abdominal pain. CT scan revealed aneurysms of the abdominal aorta, right common iliac artery, right internal iliac artery. She underwent endovascular repair of the aneurysms. The CT scan also showed mild left hydronephrosis due to a 3 mm left distal ureteral calculus. Small bilateral renal calculi were seen, though some of these appeared to be depression though some of these renal calcifications appeared to be vascular in nature. She reported left-sided discomfort. She passed a calculus during the hospitalization and is now asymptomatic. However, a CT scan in 06/19/2021 showed moderate to severe left hydronephrosis due to a 4 mm mid to distal ureteral calculus. She has a history of hypertension, and her blood pressure became labile. She underwent cystoscopy, left retrograde pyelogram, and left ureteral stent insertion on 07/05/2021. She was found to have an obstructing left ureteral calculus just distal to the iliac vessels. She now comes for ureteroscopic removal of the calculus. Operative Findings: Left ureteral calculus, fragmented completely. Description of Procedure: The patient was taken to the operating room and placed in the dorsolithotomy position, with legs supported in Claudio stirrups. The external genitalia was prepped and draped sterilely. The 30 lens was used to introduce the 21-Guyanese Castano cystoscopic sheath through the urethra and into the bladder under direct vision. The bladder was examined in its entirety. No abnormalities were seen. The distal end of the left ureteral stent was grasped with grasping forceps and removed along with the cystoscope. The Castano semirigid ureteroscope was advanced into the bladder, and the left ureteral orifice was cannulated. The ureteroscope was slowly advanced under direct vision until the calculus was reached, at the level of the iliac vessels. Significant ureteral edema was noted surrounding the calculus. The 365 micron Holmium laser probe was passed through the ureteroscope, and lithotripsy was performed. The calculus became dislodged and migrated proximally, where lithotripsy was completed. A 1.9-Guyanese nitinol basket was used to remove the calculus fragments, which were saved and sent for chemical analysis. The ureter was then examined. There was no evidence of ureteral trauma. As stated, there was considerable edema where the calculus had been impacted. The patient tolerated the procedure well and was taken to the recovery room [facility] Report: Procedure Acuity: Elective Stone Size and Location: 4 mm, left distal ureter Ureteral Dilation: No Ureteral Access Sheath Used: No Stone Sent for Analysis: Yes All Stones/Fragments Were Removed with a Basket: Yes Complications: No Preoperative Antibiotics Given: Yes Stent Placed: No Discharge Medications: None
[2021-07-27 09:04] VITALS: RESP 16
[2021-07-27 09:40] VITALS: BP 173/86; PULSE 68
--- NOTE | 2021-07-27 09:48 | FL ---
EXAMINATION TYPE: FL guidance operating room DATE OF EXAM: 07/27/2021 HISTORY: Fluoroscopy time 2 seconds of fluoroscopy provided. IMPRESSION: 1. Fluoroscopy time.
== END 2021-07-27 09:52 | disposition home or self-care (01) ==
LOC: OR 05:52
PROVIDERS: ATTEND Urology
DX: N13.2 Hydronephrosis with renal and ureteral calculous obstruction (principal); I71.4 Abdominal aortic aneurysm, without rupture; I72.3 Aneurysm of iliac artery; I10 Essential (primary) hypertension; J44.9 Chronic obstructive pulmonary disease, unspecified; K21.9 Gastro-esophageal reflux disease without esophagitis; E78.5 Hyperlipidemia, unspecified; G89.29 Other chronic pain; M54.50 Low back pain, unspecified; G25.0 Essential tremor; F17.200 Nicotine dependence, unspecified, uncomplicated; Z79.82 Long term (current) use of aspirin; Z79.899 Other long term (current) drug therapy; Z87.440 Personal history of urinary (tract) infections; Z90.89 Acquired absence of other organs; Z98.890 Other specified postprocedural states; Z90.710 Acquired absence of both cervix and uterus; Z82.5 Family history of asthma and other chronic lower respiratory diseases
CPT/HCPCS: 82365; 74018; 52353; J1100; J0690; J2405; J3010; J2704; J2001

== ENCOUNTER → 2022-08-08 | Outpatient (CLI) | payer MEDICARE ==
[2022-08-09 02:14] LABS: Basophils % (A) 0.7 %; Eosinophils # (A) 0.36 X 10*3/uL (0.04-0.35); Eosinophils % (A) 2.6 %; HCT 43.7 % (37.2-46.3); HGB 14.3 g/dL (12.0-15.0); Immature Grans, Automated 0.5 %; Lymphocytes % (A) 27.8 %; MCH 28.5 pg (27.0-32.0); MCHC 32.7 g/dL (32.0-37.0); MCV 87.2 fL (80.0-97.0); Mean Platelet Volume 10.9 fL (9.5-12.2); Monocytes # (A) 0.74 X 10*3/uL (0.20-1.00); Monocytes % (A) 5.4 %; NRBC Per 100 WBC 0 /100 WBCS (0.0-0.0); Neutrophils # (A) 8.61 X 10*3/uL (1.80-7.70); Platelet Count 266 X 10*3/uL (140-440); RBC 5.01 X 10*6/uL (4.10-5.20); RDW 14.5 % (11.5-14.5); WBC 13.68 X 10*3/uL (4.50-10.00)
[2022-08-09 02:46] LABS: Appearance,Urine Clear (Clear); Bilirubin,Urine Negative (Negative); Blood,Urine Negative (Negative); Color,Urine Yellow (Yellow); Ketones,Urine Negative (Negative); Nitrite,Urine Negative (Negative); PH, Urine 6.5 (5.0-8.0); Specific Gravity,Urine 1.013 (1.001-1.030); Urobilinogen,Urine 0.2 (0.2,1.0)
[2022-08-09 03:20] LABS: Urine Creatinine 53.8 mg/dL (28.0-217.0)
[2022-08-09 03:26] LABS: % Iron Saturation 19.53 (12.00-45.00); ALT 16 U/L (8-44); AST 20 U/L (13-35); Albumin/Globulin Ratio 1.99 (1.60-3.17); Alkaline Phosphatase 85 U/L (41-126); BUN/Creat Ratio 21.45 Ratio (12.00-20.00); Blood Urea Nitrogen 28.1 mg/dL (9.0-27.0); Calcium 9.8 mg/dL (8.7-10.3); Carbon Dioxide 32.7 mmol/L (20.0-27.5); Chloride 89 mmol/L (96-109); Ferritin 59.9 ng/mL (10.0-291.0); Glucose 83 mg/dL (70-110); Iron 67 ug/dL (50-170); Non-African American GFR(CKD) 40.6 (60.0-200.0); Potassium 3.2 mmol/L (3.5-5.5); Sodium 133 mmol/L (135-145); Total Bilirubin <0.15 mg/dL (0.30-1.20); Total Iron Binding Capacity 342 ug/dL (228-460); Total Protein 5.9 g/dL (6.2-8.2)
== END | disposition home or self-care (01) ==
LOC: LABWHC1 14:10
PROVIDERS: ATTEND Internal Medicine
DX: N17.0 Acute kidney failure with tubular necrosis (principal)
CPT/HCPCS: 36415; 80053; 81003; 82043; 82570; 82728; 83540; 83550; 85025

== ENCOUNTER → 2022-11-16 | Outpatient (CLI) | payer MEDICARE ==
[2022-11-16 20:42] LABS: ALT 15 U/L (8-44); AST 20 U/L (13-35); Albumin 4.1 d/dL (3.8-4.9); Albumin/Globulin Ratio 1.86 Ratio (1.60-3.17); Alkaline Phosphatase 86 U/L (41-126); BUN/Creat Ratio 17.67 Ratio (12.00-20.00); Blood Urea Nitrogen 21.2 mg/dL (9.0-27.0); Calcium 10.2 mg/dL (8.7-10.3); Carbon Dioxide 33.4 mmol/L (21.6-31.8); Chloride 94 mmol/L (96-109); Globulin 2.2 d/dL (1.6-3.3); Glucose 84 mg/dL (70-110); Sodium 138 mmol/L (135-145); Total Bilirubin <0.2 mg/dL (0.3-1.2); Total Protein 6.3 d/dL (6.2-8.2)
== END | disposition home or self-care (01) ==
LOC: LABWHC1 11:55
PROVIDERS: ATTEND Internal Medicine
DX: N17.0 Acute kidney failure with tubular necrosis (principal)
CPT/HCPCS: 36415; 80053

== ENCOUNTER → 2023-08-15 | Outpatient (CLI) | payer MEDICARE ==
--- NOTE | 2023-08-17 18:31 | CT ---
EXAMINATION TYPE: CT cervical spine wo con DATE OF EXAM: 08/15/2023 COMPARISON: Mammogram HISTORY: Carpal tunnel syndrome, bilateral arm numbness, cervical stenosis CT DLP: 359 mGycm CONTRAST: None CT of the cervical spine is performed in the axial plane at 2 mm thick sections. Reconstructed image s in the coronal, and sagittal plane are reviewed on the computer. No acute fractures are evident. Vertebral body alignment is normal. There is diffuse loss of disc height present. Greatest loss of disc height is present C5-6 C6-7. Vertebral body heights are preserved. No spinal canal stenosis is evident Uncovertebral joint hypertrophy at C6-7 has mild foraminal narrowing slightly greater on the left. So me endplate changes are evident C6-7 and C5-6 mild anterior thecal sac contact. No cord contact or sp inal canal stenosis is evident. Some mild disc bulge may be present centrally at C2-3 without cord contact or spinal canal stenosis. Mild disc bulge is present C3-4 with anterior thecal sac contact. No spinal canal stenosis. Minimal d isc bulge is present C4-5 with anterior thecal sac contact. Disc material associated with the endplat e spurring at C5-6 C6-7 is present without spinal canal stenosis. IMPRESSION: 1. Degenerative disc changes through the cervical spine discussed above. This appears greatest widt h anterior thecal sac flattening C5-6 C6-7. 2. Some foraminal narrowing noted C6-7 due to uncovertebral joint hypertrophy.
== END | disposition home or self-care (01) ==
LOC: RADCTMAIN 08-09 10:04
PROVIDERS: ATTEND Physical Medicine & Rehabilitation
DX: M47.812 Spondylosis without myelopathy or radiculopathy, cervical region (principal); G56.01 Carpal tunnel syndrome, right upper limb
CPT/HCPCS: 72125

== ENCOUNTER → 2024-02-17 | Outpatient (CLI) | payer MEDICARE ==
[2024-02-17 10:39] LABS: African American GFR (CKD) 57 (>60 ml/min/1.73 sqM); Blood Urea Nitrogen 32 mg/dL (7-17); Non-African American GFR(CKD) 50 (>60 ml/min/1.73 sqM)
--- NOTE | 2024-02-17 12:31 | CT ---
EXAMINATION TYPE: CT angio abdomen pelvis CT DLP: 628.1 mGycm, Automated exposure control for dose reduction was used. DATE OF EXAM: 02/17/2024 11:41 AM COMPARISON:CTA abdomen and pelvis 06/19/2021, CTA thoracoabdominal pelvis aorto 05/01/2021 CLINICAL INDICATION:Female, 74 years old with history of I71.43 INFRARENAL ABDOMINAL AORTIC ANEURYSM, WITHO; h/o abdomnal anerysm f/u TECHNIQUE: Multiple thin slice sub-millimeter images were obtained through the abdomen and pelvis bef ore and after administration of contrast. Patient was given Isovue 370, 80 cc intravenously. 3-D re constructed images and maximum intensity projection images were obtained of the abdominal aorta and i ts branches. FINDINGS: CTA Abdomen and pelvis: Moderate atherosclerotic plaquing is identified within the abdominal aorta. T ortuosity of the abdominal aorta. Postsurgical changes from aortobiiliac stent graft beginning just b elow the renal arteries. The infrarenal abdominal aortic zuni aneurysm sac measures 3.8 x 3.3 cm wh ich is decreased in size on a previous measure 4.3 x 3.9 cm. Previously seen endoleak is not visualiz ed on today's exam. Aneurysm dilatation of the aorta at the hiatus measuring up to 3.2 cm, previously measured 2.9 cm. Mild stenosis of the origin of the celiac axis secondary to noncalcified plaque. Th e celiac axis is patent. The SMA is widely patent. The CYNDIE is not well-visualized. The left renal art levi is widely patent. Mild stenosis of the origin of the right renal artery secondary to noncalcified plaque. Redemonstration of large coil with streak artifact at site of prior right iliac artery aneur ysm. The bilateral common iliac arteries are patent. The bilateral external iliac arteries are patent . The left internal iliac artery is patent with high-grade stenosis at its origin. There is poor visu alization of the right internal iliac artery secondary to streak artifact. The distal portion appears patent. The visualized portion of the deep and superficial bilateral femoral arteries are patent. Th ere is high-grade stenosis involving the origin of the left superficial femoral artery secondary to n oncalcified and calcified plaque. Broad-based saccular aneurysm involving the left common femoral art levi measuring up to 9 mm (series 7, image 270). VISCERA: The liver, spleen, adrenal glands, kidneys, pancreas, and gallbladder are not optimally enha nced due the arterial phase utilized. LIVER: Unremarkable GALLBLADDER AND BILE DUCTS: Unremarkable. PANCREAS: Unremarkable. SPLEEN: Unremarkable. ADRENAL GLANDS: Unremarkable. KIDNEYS AND URETERS: No evidence of hydronephrosis. Bilateral nonobstructive and/or renal vascular ca lcifications. PELVIS BLADDER: Unremarkable REPRODUCTIVE: Uterus is surgically absent or atrophic. ABDOMEN & PELVIS STOMACH AND BOWEL: No focal wall thickening or surrounding inflammatory changes. No evidence of bowel obstruction. PERITONEUM: No evidence of pneumoperitoneum or free fluid. VASCULATURE: No evidence of aortic aneurysm. MUSCULOSKELETAL: No acute osseous abnormalities. Remote fractures of the left inferior and superior p ubic rami. Postsurgical changes from left-sided pedicle screw and poonam with disc spacer involving L4-L 5. LYMPH NODES: No evidence for lymphadenopathy. SOFT TISSUE/ABDOMINAL WALL: Unremarkable LOWER CHEST: Minimal bilateral lower lobe subsegmental atelectasis. Cardiomegaly. IMPRESSION: 1. Postsurgical changes from aortobiiliac stent graft with decreased size of zuni aneurysm sac. No definitive evidence for endoleak. 2. Developing abdominal aortic aneurysm measuring 3.2 cm at the hiatus. 3. Broad-based 9 mm saccular aneurysm involving the distal left common femoral artery. [facility], , 02/17/2024 12:29 PM
== END | disposition home or self-care (01) ==
LOC: RADCTMAIN 09:52
PROVIDERS: ATTEND Surgery
DX: I71.43 Infrarenal abdominal aortic aneurysm, without rupture (principal); I51.7 Cardiomegaly; J98.11 Atelectasis; I72.4 Aneurysm of artery of lower extremity; I72.3 Aneurysm of iliac artery; I70.0 Atherosclerosis of aorta
CPT/HCPCS: 82565; 84520; 36415; 74174; Q9967

== ENCOUNTER 2024-08-22 16:45 | Emergency (ER) | payer MEDICARE ==
[2024-08-22 16:50] VITALS: TEMP 98
--- NOTE | 2024-08-22 17:02 | ED ---
Fall HPI - General Chief Complaint: Fall Stated Complaint: Fall/Head Injury Time Seen by Provider: 08/22/24 16:51 Source: patient, family, RN notes reviewed Mode of arrival: wheelchair - History of Present Illness Initial Comments: 74-year-old female presenting to emergency room with family for concerns of left hip pain after a fall that occurred prior to arrival. Patient notes she was gardening walking down a small incline she fell on 2 grass on her left-hand side hitting the back of her head and her left hip. Patient denies loss of consciousness at the time of the injury. Patient is currently denying a headache, visual disturbances, neck pain, altered mental status. Patient states that she has pain mostly of the left groin/hip that mildly radiates anteriorly to the knee. Patient notes that she is able to ambulate with her walker however this elicits pain. She denies loss of bladder or bowel control since the injury. Denies blood thinner use. Took a Inglis at home prior to arrival with minimal relief in pain. - Related Data Home Medications Medication Instructions Recorded Confirmed Cholecalciferol [Vitamin D3 (25 100 mcg PO DAILY 05/01/21 07/27/21 Mcg = 1000 Iu)] DULoxetine HCL [Cymbalta] 120 mg PO DAILY 05/01/21 07/27/21 HYDROcodone/APAP 7.5-325MG [Inglis 1 tab PO QID PRN 05/01/21 07/27/21 7.5-325] Famotidine [Pepcid] 20 mg PO DAILY PRN 07/26/21 07/27/21 Vitamin B12 (Unknown Dose) 1 tab PO DAILY 07/26/21 07/27/21 amLODIPine BESYLATE 5 mg PO DAILY 07/26/21 07/27/21 Previous Rx's Medication Instructions Recorded Aspirin 81 mg PO DAILY #30 05/12/21 Docusate [Colace] 100 mg PO BID PRN 5 Days #10 cap 05/12/21 Sennosides [Senokot] 17.4 mg PO HS PRN 5 Days #10 tab 05/12/21 Allergies Allergy/AdvReac Type Severity Reaction Status Date / Time No Known Allergies Allergy Verified 07/27/21 06:42 Review of Systems ROS Statement: Those systems with pertinent positive or pertinent negative responses have been documented in the HPI. ROS Other: All systems not noted in ROS Statement are negative. Past Medical History Past Medical History: COPD, GERD/Reflux, Hyperlipidemia, Hypertension, Musculoskeletal Disorder Additional Past Medical History / Comment(s): Chronic low back pain, UTIs, pelvic fracture-healed, L kidney stone. Essential tremors. History of Any Multi-Drug Resistant Organisms: None Reported Past Surgical History: Back Surgery, Hysterectomy, Tonsillectomy Additional Past Surgical History / Comment(s): D&Cs, L4-L5 back surgery/poonam, colonoscopies, hemorrhoidectomy. 2 aneurysms, AAA & iliac, repaired. Ureteral stent 07/05/21. Past Anesthesia/Blood Transfusion Reactions: No Reported Reaction Past Psychological History: No Psychological Hx Reported Smoking Status: Current every day smoker - Past Family History Father Family Medical History: No Reported History Additional Family Medical History / Comment(s): Father was a smoker but healthy Mother Family Medical History: COPD Additional Family Medical History / Comment(s): Mother was a smoker. Daughter(s) Family Medical History: Blood Disorder Additional Family Medical History / Comment(s): lupus anticoagulant syndrome General Exam Limitations: no limitations General appearance: alert, in no apparent distress Head exam: Present: atraumatic, normocephalic, normal inspection Eye exam: Present: normal appearance, PERRL, EOMI. Absent: scleral icterus, conjunctival injection, periorbital swelling Neck exam: Present: normal inspection. Absent: tenderness, meningismus, lymphadenopathy Respiratory exam: Present: normal lung sounds bilaterally. Absent: respiratory distress, wheezes, rales, rhonchi, stridor Cardiovascular Exam: Present: regular rate, normal rhythm, normal heart sounds. Absent: systolic murmur, diastolic murmur, rubs, gallop, clicks GI/Abdominal exam: Present: soft, normal bowel sounds. Absent: distended, tenderness, guarding, rebound, rigid Left Hip exam: Present: full ROM, tenderness. Absent: swelling, ecchymosis, deformity, dislocation Gait: observed and limited by pain Back exam: Present: normal inspection. Absent: tenderness, CVA tenderness (R), CVA tenderness (L) Course Vital Signs 08/22/24 08/22/24 08/22/24 16:47 18:15 19:50 Temperature 98 F Pulse Rate 72 64 66 Respiratory 16 18 18 Rate Blood Pressure 187/92 173/94 201/106 O2 Sat by Pulse 98 97 95 Oximetry Medical Decision Making - Medical Decision Making Was pt. sent in by a medical professional or institution (LORI Gonzalez, [employer], urgent care, hospital, or longterm...) When possible be specific @ -No Did you speak to anyone other than the patient for history (EMS, parent, family, police, friend...)? What history was obtained from this source @ -No Did you review nursing and triage notes (agree or disagree)? Why? @ -I reviewed and agree with nursing and triage notes Were old charts reviewed (outside hosp., previous admission, EMS record, old EKG, old radiological studies, urgent care reports/EKG's, longterm records)? Report findings @ -No old charts were reviewed Differential Diagnosis (chest pain, altered mental status, abdominal pain women, abdominal pain men, vaginal bleeding, weakness, fever, dyspnea, syncope, headache, dizziness, GI bleed, back pain, seizure, CVA, palpatations, mental health, musculoskeletal)? @ -Differential Back Pain: Strain, zoster, cauda equina syndrome, epidural abscess, vertebral osteomyelitis, discitis, fracture, subluxation, disc herniation, DJD, spinal stenosis, dissection, AAA, pancreatitis, peptic ulcer disease, pyelonephritis, kidney stone, this is not meant to be an all-inclusive list. EKG interpreted by me (3pts min.). @ -None X-rays interpreted by me (1pt min.). @ -X-ray imaging of the left hip and AP pelvis no acute osseous abnormality identified. CT interpreted by me (1pt min.). @ -None done U/S interpreted by me (1pt. min.). @ -None done What testing was considered but not performed or refused? (CT, X-rays, U/S, labs)? Why? @ -CT imaging of the brain and C-spine was considered but deferred at this time. Patient did hit her head however there is no loss of consciousness and currently patient is not complaining of headache, neck pain, visual disturbances or mentation changes therefore CT imaging is deferred. What meds were considered but not given or refused? Why? @ -None Did you discuss the management of the patient with other professionals (professionals i.e. LORI Gonzalez, [employer], lab, RT, psych nurse, child welfare social worker, lease purchase truck driver, teacher, special assets officer, case supervisor)? Give summary @ -No Was smoking cessation discussed for >3mins.? @ -No Was critical care preformed (if so, how long)? @ -No Were there social determinants of health that impacted care today? How? (Homelessness, low income, unemployed, alcoholism, drug addiction, transportation, low edu. Level, literacy, decrease access to med. care, intermediate, rehab)? @ -No Was there de-escalation of care discussed even if they declined (Discuss DNR or withdrawal of care, Hospice)? DNR status @ -No What co-morbidities impacted this encounter? (DM, HTN, Smoking, COPD, CAD, Cancer, CVA, ARF, Chemo, Hep., AIDS, mental health diagnosis, sleep apnea, morbid obesity)? @ -None Was patient admitted / discharged? Hospital course, mention meds given and route, prescriptions, significant lab abnormalities, going to OR and other pertinent info. @ -[Discharge. 74 female presented emergency room with complaint of left hip pain after fall. Overall patient is well-appearing in no signs of acute distress. Patient is able to ambulate and bear weight of the left leg and is full range of motion however states that this does elicit pain. His ride with pain control. X-ray maintenance unremarkable. CT imaging is deferred as stated above. Recommend patient continue to use walker and limit mobility over the next few days in addition to resting and icing the affected hip. Patient stable for discharge with follow-up primary care provider. Case discussed with Dr. Muller Undiagnosed new problem with uncertain prognosis? @ -No Drug Therapy requiring intensive monitoring for toxicity (Heparin, Nitro, Insulin, Cardizem)? @ -No Were any procedures done? @ -No Diagnosis/symptom? @ -hip pain s/p fall Acute, or Chronic, or Acute on Chronic? @ -acute Uncomplicated (without systemic symptoms) or Complicated (systemic symptoms)? @ -uncomplicated Side effects of treatment? @ -No Exacerbation, Progression, or Severe Exacerbation? @ -No Poses a threat to life or bodily function? How? (Chest pain, USA, MD, pneumonia, PE, COPD, DKA, ARF, appy, cholecystitis, CVA, Diverticulitis, Homicidal, Suicidal, threat to staff... and all critical care pts) @ -No Disposition Clinical Impression: Fall, Left hip pain Disposition: HOME SELF-CARE Condition: Stable Instructions (If sedation given, give patient instructions): Fall Prevention for Older Adults (ED) Additional Instructions: Please return to the Emergency Department if symptoms worsen or any other concerns. Is patient prescribed a controlled substance at d/c from ED?: No Referrals: Carrie Blandon DO [Primary Care Provider] - 1-2 days Time of Disposition: 19:28
[2024-08-22] MEDS: MORPHINE SULFATE 4 MG/ML SYRINGE IM STA (17:14)
[2024-08-22 18:16] VITALS: RESP 18
--- NOTE | 2024-08-22 19:13 | XR ---
EXAMINATION TYPE: XR Hip LT and AP Pelvis DATE OF EXAM: 08/22/2024 5:41 PM CLINICAL INDICATION:Female, 74 years old with history of fall, pain; PHH, pain COMPARISON: CTA abdomen/pelvis 02/17/2024. KUB 07/27/2021. TECHNIQUE: XR Hip LT and AP Pelvis; hip was examined in the frontal and oblique projections and a AP pelvis. FINDINGS: Aortobiiliac graft is partially visualized with additional surgical changes/hardware overlying the ri ght hemipelvis. Lumbar spinal fusion hardware is present. Patient is slightly rotated on exam limitin g evaluation of the left hip. There is no dislocations present. Degenerative changes of the bilateral hips and bony pelvis. There is a radiodense focus seen on oblique view in the area of the proximal l eft femur on Gaseous distention is seen within the rectum and visualized portions of the distal large bowel. IMPRESSION: There is a radiodense focus seen in the area of the proximal left femur only noted on the oblique vi ew which may be positional. Recommend dedicated left femur radiograph to further delineate this obser vation. No hip dislocations or other acute osseous abnormality seen. Postsurgical changes within the abdomen/pelvis. [facility], , 08/22/2024 7:10 PM
[2024-08-22] MEDS: HYDROmorphone 1 MG/ML 1 ML SYRINGE IM STA (19:46)
[2024-08-22 19:55] VITALS: BP 201/106; PULSE 66
== END 2024-08-22 19:58 | disposition home or self-care (01) ==
LOC: EC 16:45
DX: M25.552 Pain in left hip (principal); F17.200 Nicotine dependence, unspecified, uncomplicated; W18.30XA Fall on same level, unspecified, initial encounter; Y93.01 Activity, walking, marching and hiking
CPT/HCPCS: 73502; 99283; 96372 ×2; J2270; J1171